=== PATIENT | female | born 1955 | race Caucasian/White ===

== ENCOUNTER 2024-03-22 09:15 | Outpatient (CLI) | payer OTHER, MEDICARE, SELFPAY ==
--- NOTE | ~2024-03-22 | XR_ITS ---
EXAMINATION: XR scoliosis survey DATE: 03/22/2024 10:07 INDICATION: Scoliosis without myelopathy or radiculopathy. TECHNIQUE: Anteroposterior and lateral views of the entire spine standing were obtained. COMPARISON: None. FINDINGS: Right femoral head stands 11 mm higher than the left. There are 12 pairs of ribs. There are 5 nonrib-bearing lumbar segments. There is 12 degrees dextroscoliosis from T5 to T8 by the Alatorre meth od. There is 10 degrees levoscoliosis from T8 to L2. There is severe cervical spondylosis, moderate t horacic spondylosis, and severe lumbar spondylosis. IMPRESSION: 1. Right femoral head stands 11 mm higher than the left. 2. Scoliosis. Reviewed, dictated and finalized at location A. R
--- NOTE | ~2024-03-22 | XR_ITS ---
HISTORY: M47.816 - Spondylosis without myelopathy or radiculopathy... COMPARISON: None. TECHNIQUE: 4 view lumbar spine. FINDINGS: Lumbar vertebral bodies are normally aligned. There are 5 non-rib bearing lumbar vertebral bodies. Vertebral body heights are well maintained. Disc spaces are markedly narrowed with endplate changes and osteophyte formation. This is most prominent at the levels of L4/L5 and L5/S1. Significant facet arthropathy is present. There are no lytic or sclerotic lesions. IMPRESSION: Significant degenerative disease within the lumbar spine for which further evaluation with MRI should be performed for better characterization. No acute fracture Reviewed, dictated and finalized at location A. DIRECTOR IMPRESSION: Significant degenerative disease within the lumbar spine for which further eval uation with MRI should be performed for better characterization. No acute fracture
--- OUTSIDE RECORDS SUMMARY | 2024-03-22 09:33 | XMS_ITS | Referral Summary ---
Author Organization [facility] Address [address] [place] [id number] Care Team Providers Care Teacher Vocal Name Role Phone Jp Schulz MD Primary Care Provider Manueltio Mendenhall TIPPING MACHINE OPERATOR Unavailable [phone] Soraya Lockwood TIPPING MACHINE OPERATOR Unavailable [phone] Encounters Date Type Department Care Team Description 03/14/2024 Telephone [facility] Gastroenterology at [address] [place] [address] Nereida Sandhu MA 02/21/2024 5:10 PM FINANCIAL WELLNESS COACH - 02/21/2024 11:59 PM [facility] Hospital Encounter [facility] [address] [place] [address] Lumbar radicular pain Discharge Disposition: Discharge to home or self care from Last 3 Months Allergies Active Allergy Reactions Criticality Noted Date Comments Acetaminophen-Codeine Other (See comments) Low 08/15 Codeine Nausea only Low Reaction: Nausea, Ketorolac Nausea only Low 01/21/2023 Tramadol Nausea only Low 01/21/2023 Medications melatonin 5 mg tablet 1 tablet (5 mg total) Active cholecalciferol, vitamin D3, (VITAMIN D3 ORAL) Take 1,000 Units by mouth Active biotin 10,000 mcg capsule Take by mouth Active wafbzvbmkold-Be-mft n-minerals tablet Take by mouth Active senna-docusate (PERICOLACE) 8.6-50 mg Take 1-2 pills nightly or at least 3 times weekly to help with larger and more complete morning bowel movements. 60 tablet 5 3 Active ascorbic acid, vitamin C, 125 mg tablet,chewable Take by mouth Active levothyroxine (SYNTHROID) 88 mcg tabletIndications:A cquired hypothyroidism Take 1 tablet (88 mcg total) by mouth daily 90 tablet 3 4 Active lovastatin (MEVACOR) 20 mg tabletIndications:M ultiple-type hyperlipidemia Take 1 tablet (20 mg total) by mouth nightly 90 tablet 3 4 Active Active Problems Problem Noted Date Diagnosed Date NSAID long-term use 10/04/2023 Assessment & Plan (10/04/2023 11:16 AM CDT): New diagnosis Patient has been noted to have custodial current use of NSAIDs. She has been using Advil-PM --> for sleep, discussed to switch to benadryl only due to risk of custodial use of NSAIDS Discussed that NSAIDs have been associated with: - increase in risk of GI bleeding and peptic ulcer - cause fluid retention and worsen congestive heart failure - worsen kidney function I recommend the following: - Using the lowest dose for the shortest possible duration - if possible switch NSAID with a different form of medication - Review patient s renal function and adjust dose accordingly - Adding a proton pump inhibitor (PPI) for GI protection for NSAID therapy >7 days - avoid using prednisone at same time as NSAIDs Elevated blood pressure reading 10/04/2023 Assessment & Plan (10/04/2023 11:20 AM CDT): - new diagnosis, not at goal - has had elevated BP reading in office and with pain management provider - asked her to send me blood pressure logs from home for 5 days so I can decide whether to start on medication or not - follow a low-salt diet - states does not want to take blood pressure lowering medications - see plan under obesity about weight management options and monitoring calorie intake Medicare annual wellness visit, subsequent 10/02 Class 1 obesity due to exces s calories with serious comorbidity and body mass index (BMI) of 32.0 to 32.9 in adult 10/03/2023 Assessment & Plan (10/04/2023 11:17 AM CDT): Wt Readings from Last 3 Encounters: 10/03/23 85.6 kg (188 lb 12.8 oz) 05/31/23 81.6 kg (180 lb) 01/21/23 83.3 kg (183 lb 11.2 oz) Body mass index is 32.39 kg/m . - chronic condition, not at goal - worse - BMI Follow-up includes: nutrition counseling, exercise counseling and education provided - Recommend to exercise at least 30 minutes moderate to vigorous exercise most days of the week. (minimum 150 minutes weekly) - Co-morbidities - hyperlipidemia, pre-diabetes - she wants to be about 150 lbs - calculated estimated daily calorie intake that is needed for someone based on her age, activity level, sex which will be around 1400 calories per day Personal history of colonic polyps 01/21/2023 Assessment & Plan (10/03/2023 12:40 PM CDT): - she has colonoscopy scheduled for 03/23/2024, patient has known history of colon polyps Irritable bowel syndrome with constipation and d iarrhea 01/21/2023 History of hematuria 12/20/2022 Assessment & Plan (10/04/2023 11:17 AM CDT): - she was referred to Urology for hematuria by prior pleased to be and was referred to [facility] - had complete workup including imaging and cystoscopy with normal finding and was told she likely passed a kidney stones Assessment & Plan (12/20/2022 5:13 PM FINANCIAL WELLNESS COACH): CT scans without renal mass. Urological referral for cystoscopy and completion of work up. Diverticulitis 12/20/2022 Assessment & Plan (12/20/2022 5:13 PM FINANCIAL WELLNESS COACH): Complete course of antibiotics. Colonoscopy ordered. High-fiber diet and Metamucil to avoid constipation. History of diverticulitis of colon 12/16/2022 Overview (10/04/2023): - Diverticulitis - many years ago in ED, states in Lumbar radiculopathy 09/29/2022 Overview (10/27/2023): Follows with pain management as interventional pain consultants for lumbar radicular pain, osteoarthritis of right hip and other chronic pain She has had L4-L5 ES I was 90% benefit Status post right eye a hip injections for osteoarthritis of right hip with 40% benefit Assessment & Plan (10/03/2023 12:38 PM CDT): - chronic condition, stable status - managed by Interventional pain management - known conditions of right sided Lumbar radiculopathy and DDD of lumbar spine - states almost 30 years ago was told had bulging disc L4-L5 - Family members have had difficulty with opioid use and would prefer to avoid medication if able to in general - managed with injections x2 in her back and x1 in her hip thus far --> but only lasting few weeks at a time - she takes advil PM at night - states with her demanding work cannot do Physical therapy - continue current management per pain management Assessment & Plan (12/20/2022 5:13 PM FINANCIAL WELLNESS COACH): Pain management referral. Family members have had difficulty with opioid use and would prefer to avoid medication if able. Assessment & Plan (09/29/2022 10:03 AM CDT): PRN meds for now. Call for lumbar spine xrays, Right hip xrays and PT eval when ready. Healthcare maintenance 07/12/2017 Assessment & Plan (09/29/2022 10:15 AM CDT): Flu shot each November. Tetanus booster every 10 years. Shingrix completed. Prevnar 20 today. New COVID booster when available. Mammogram yearly. Colonoscopy due September 2023. Will see her back in 1 year for physical fasting lab sooner if. Assessment & Plan (09/24/2021 10:09 AM CDT): Shot each November. Tetanus booster every 10 years. Shingrix completed. COVID vaccine booster this fall. Mammogram yearly. Colonoscopy due September 2023. Will see her back in 1 year for physical fasting lab sooner if needed. Assessment & Plan (11/12/2020 5:09 PM CDT): Flu shot each November. Tetanus booster every 10 years. Shingrix recommended. COVID vaccine completed. Mammogram yearly. Colonoscopy due September 2023. Will see her back in 1 year with lab sooner if needed. Assessment & Plan (07/25/2019 10:40 AM CDT): Flu shot each November. Tetanus booster every 10 years. Shingrix recommended. Colonoscopy due September 2028. Mammogram due September 2019. Follow-up the ab initio etl developer for breast exam and pelvic exam as they direct. We will see her back in 1 year for physical and fasting lab sooner if needed. Assessment & Plan (07/13/2018 12:47 PM CDT): Flu shot each November. Tetanus booster updated today. Shingrix recommended. Colonoscopy due and ordered. Mammogram yearly. Will see her back in 1 year for physical and fasting lab sooner if needed. Assessment & Plan (08/07/2017 8:29 PM CDT): Flu shot each November. Tetanus booster every 10 years. Shingrix recommended. Colonoscopy due May 2018. Bone density scan due August 2018. Mammogram yearly. She should see her ab initio etl developer for breast exam and pelvic exam is a direct. We will see her back in 1 year for full physical and fasting lab sooner if needed. Allergic rhinitis 07/12/2017 Insomnia 07/12/2017 Assessment & Plan (10/04/2023 11:17 AM CDT): - Chronic condition, controlled - Uses Melatonin PRN only and 2 Advil PM at night - discussed risk of custodial NSAID use --> asked her to discontinue Advil p.m. start using Benadryl in place of it Assessment & Plan (07/25/2019 10:38 AM CDT): Melatonin and Benadryl as needed. Assessment & Plan (07/13/2018 12:47 PM CDT): Continue melatonin as needed Degeneration of intervertebral disc of lumbar re gion 06/30/2013 History of asthma 06/30/2013 Assessment & Plan (10/03/2023 12:46 PM CDT): - history of it in past when she used to be very active - has not been an issue in the past Acquired hypothyroidism 06/30/2013 Assessment & Plan (10/03/2023 12:43 PM CDT): - chronic condition - status: well controlled - any hx of surgery, radiation: none - current medication: Levothyroxine 88 mcg daily - most recent labs as shown below - continue current management with changes as indicated above if applicable Lab Results Component Value Date TSH 1.43 09/26/2023 TSH 2.48 09/22/2022 TSH 0.34 09/10/2021 FREET4 1.3 09/26/2023 FREET4 1.2 09/22/2022 FREET4 1.58 09/10/2021 Assessment & Plan (09/29/2022 10:14 AM CDT): Patient is asymptomatic on current dose of levothyroxine and TSH free T4 are normal and we will repeat levels before next visit. Assessment & Plan (09/24/2021 10:08 AM CDT): Patient is asymptomatic on current dose of levothyroxine and TSH free T4 are normal and we will repeat levels before next visit. Assessment & Plan (11/12/2020 5:08 PM CDT): Stop biotin. Continue current dose of levothyroxine. recheck labs in 8 weeks. Call back for results. Assessment & Plan (07/25/2019 10:39 AM CDT): Increase levothyroxine to 88 mcg daily. Check TSH and free T4 in 8 weeks and call back for results. Assessment & Plan (07/13/2018 12:47 PM CDT): Patient is asymptomatic on current dose of levothyroxine and TSH free T4 are normal and we will repeat levels before next visit. Assessment & Plan (08/07/2017 8:28 PM CDT): Patient is asymptomatic on current dose of levothyroxine and TSH free T4 are normal and we will repeat levels before next visit. Vitamin D deficiency 06/30/2013 Assessment & Plan (10/03/2023 12:49 PM CDT): - chronic condition, stable status - on vitamin D supplementation 1000 international units D3 daily - most recent lab as shown below - continue current management Lab Results Component Value Date 25HYDROVITD 39 09/10/2021 25HYDROVITD 24 (L) 12/25/2020 25HYDROVITD 96 (H) 09/12/2020 25HYDROVITD 43 07/18/2019 25HYDROVITD 37 06/28/2018 Assessment & Plan (09/29/2022 10:14 AM CDT): Continue current supplementation and check level in 1 year. Assessment & Plan (09/24/2021 10:08 AM CDT): Continue current supplementation and check level in 1 year. Assessment & Plan (11/12/2020 5:09 PM CDT): Hold vitamin-D supplementation, repeat labs in 8 weeks. Restart 1000 units daily once normal. Assessment & Plan (07/25/2019 10:37 AM CDT): Continue current supplementation and check level in 1 year. Assessment & Plan (07/13/2018 12:46 PM CDT): Continue current supplementation and check level in 1 year. Assessment & Plan (08/07/2017 8:28 PM CDT): Continue current supplementation and check level in 1 year. Impaired fasting glucose 06/30/2013 Assessment & Plan (10/03/2023 12:42 PM CDT): - chronic condition, worse - not on any medications - will continue to monitor - Patient should reduce sugar and carbs, increase exercise, maintain proper body weight, and will check an A1c once or twice yearly. Lab Results Component Value Date HGBA1C 6.0 (H) 09/26/2023 HGBA1C 5.6 09/22/2022 HGBA1C 5.6 09/10/2021 Lab Results Component Value Date LDLCALC 91 09/10/2021 CREATININE 1.06 (H) 09/26/2023 Assessment & Plan (09/29/2022 10:14 AM CDT): Patient should reduce sugar and carbs, increase exercise, maintain proper body weight, and will check an A1c once or twice yearly. Assessment & Plan (09/24/2021 10:08 AM CDT): Patient should reduce sugar and carbs, increase exercise, maintain proper body weight, and will check an A1c once or twice yearly. Assessment & Plan (11/12/2020 5:09 PM CDT): Patient should reduce sugar and carbs, increase exercise, maintain proper body weight, and will check an A1c once or twice yearly. Assessment & Plan (07/25/2019 10:38 AM CDT): Patient should reduce sugar and carbs, increase exercise, maintain proper body weight, and will check an A1c once or twice yearly. Assessment & Plan (07/13/2018 12:47 PM CDT): Patient should reduce sugar and carbs, increase exercise, maintain proper body weight, and will check an A1c once or twice yearly. Assessment & Plan (08/07/2017 8:28 PM CDT): Patient should reduce sugar and carbs, increase exercise, maintain proper body weight, and will check an A1c once or twice yearly. Multiple-type hyperlipidemia 06/30/2013 Overview (07/12/2017): LDL baseline 206 Assessment & Plan (10/03/2023 12:42 PM CDT): - chronic condition - status: is adequately controlled. - per prior PCP her baseline LDL was 2017 - current management/medications: Lovastatin 20 mg nightly - other comorbid conditions: Obesity - patient is compliant with medications. - most recent LDL as shown below - maintain a healthy weight, diet - will monitor closely - continue current management Lab Results Component Value Date CHOL 173 09/26/2023 CHOL 180 09/22/2022 CHOL 169 09/10/2021 Lab Results Component Value Date HDL 55 09/26/2023 HDL 56 09/22/2022 HDL 55 09/10/2021 Lab Results Component Value Date LDLCALC 91 09/10/2021 LDLCALC 98 09/12/2020 LDLCALC 108 07/18/2019 LDL 89 09/26/2023 LDL 98 09/22/2022 LDL 107 06/16/2015 Lab Results Component Value Date TRIG 195 (H) 09/26/2023 TRIG 159 (H) 09/22/2022 TRIG 114 09/10/2021 Lab Results Component Value Date ALT 20 09/26/2023 AST 17 09/26/2023 ALKPHOS 72 09/26/2023 BILITOT 0.4 09/26/2023 Assessment & Plan (09/29/2022 10:15 AM CDT): Well controlled on current therapy and will check a lipid panel and LFTs in 6 months. Assessment & Plan (09/24/2021 10:09 AM CDT): Well controlled on current therapy and will check a lipid panel and LFTs in 12 months. Assessment & Plan (11/12/2020 5:09 PM CDT): Well controlled on current therapy and will check a lipid panel and LFTs in 12 months. Assessment & Plan (07/25/2019 10:38 AM CDT): Well controlled on current therapy and will check a lipid panel and LFTs in 12 months. Assessment & Plan (07/13/2018 12:47 PM CDT): Well controlled on current therapy and will check a lipid panel and LFTs in 12 months. Assessment & Plan (08/07/2017 8:28 PM CDT): Well controlled on current therapy and will check a lipid panel and LFTs in 12 months. Low bone mass 06/26/2013 Assessment & Plan (10/04/2023 11:14 AM CDT): - Calcium vitamin-D, weight-bearing exercise - Most recent DEXA as shown below - DEXA 10/2022 FINDINGS: AP LUMBAR SPINE L1-L4: T-score is -0.8 LEFT HIP:T-score is -0.9 Femoral neck: T-score is -1.6 Assessment & Plan (09/29/2022 10:15 AM CDT): Calcium vitamin-D, weight-bearing exercise and repeat bone density scan at her convenience and call back for results Assessment & Plan (09/24/2021 10:09 AM CDT): Calcium, vitamin-D, weight-bearing exercise and repeat bone density scan once on Medicare. Assessment & Plan (07/25/2019 10:37 AM CDT): Continue calcium, vitamin-D, weight-bearing exercise and patient again elects to defer bone density scanning till next year due to current COVID-19 related issues. Assessment & Plan (07/13/2018 12:47 PM CDT): Calcium, vitamin-D, weight-bearing exercise. Patient declines repeat bone density scan until next year. She is aware the risks this poses to her health. Assessment & Plan (08/07/2017 8:28 PM CDT): Continue calcium, vitamin-D, weight-bearing exercise and repeat bone density scan in August 2018 per her request. Resolved Problems Problem Noted Date Diagnosed Date Resolved Date Irritable bowel syndrome wit h both constipation and diarrhea 01/21/2023 10/03/2023 History of colonoscopy with polypectomy 01/21/2023 10/03/2023 H/O colonoscopy with polypectomy 01/21/2023 10/03/2023 Encounter for vaccination 09/29/2022 Assessment & Plan (09/29/2022 10:16 AM CDT): Prevnar 20 today. 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 Wound care reviewed with patient. Follow-up per path. Skin tags, multiple acquired 08/14/2018 10/03/2023 Assessment & Plan (08/14/2018 9:33 AM CDT): Chest, bilateral under arms Diagnosis discussed. Patient is aware that this is a cosmetic procedure and also of the risks, benefits, and recovery. She would like to proceed. Please see separate cosmetic procedure note. Return p.r.n. Encounter for screening colonoscopy 08/04/2018 10/03/2023 Overview (08/04/2018): Added automatically from request for surgery [id number] Mass of left side of neck 12/12/2017 Assessment & Plan (12/12/2017 3:24 PM CDT): Possible mild inflammation of soft tissue, cartilage surrounding her clavicular angle due to the recent shingles infection considering it near the C4 dermatome I did encourage patient will go ahead move forward in grab an x-ray of soft tissue for further evaluation to rule out any acute concerns regarding lymphadenopathy her other etiologies which could be causing her symptoms. We will touch base with her tomorrow after imaging Post herpetic neuralgia 12/12/201709/14 Assessment & Plan (12/12/2017 3:26 PM CDT): Discussion office today of which typically expected regard to post herpetic neuralgia it has only been 2 weeks and she was diagnosed and treated with condition I advised her to give another 2-3 weeks before we move for with treatment options for post herpetic neuralgia including use of gabapentin, tricyclics, and certainly any other pain medication which we often defer to Pain Management for further treatment At this time I did encourage the use of capsaicin cream this might help to rebekah some of the shingles secondary neuropathic pain that she is experiencing. We will touch base in a couple weeks if needed regarding Lastly, I did encourage her to follow up in office for Shingrix vaccination next wellness visit Immunizations Name Administration Dates Next Due Hep A, Adult 04/26/2022 Influenza, Quad, Adjuvantate d, Intramuscular 02/18/2022 Influenza, Quadrivalent, Spl it, Preservative Free, Intramuscular 02/09/2020,01/22/2019 Influenza, Unspecified 10/03/2023(Deferr ed: Patient Refused),11/14/2020(Deferred: Patient Refused),11/18/2017 Pfizer SARS-CoV-2 Monovalent Vaccination (12+ Yrs) PURPLE 01/14/2021,05/24/2020,05/02/2020 Pneumococcal Conjugate Pcv20 09/29/2022 Td, adsorbed 07/13/2018 Tdap 04/12/2008 ZOSTER Recombinant 04/26/2022,02/19/2022 Social History Tobacco Use Types Packs/Day Years Used Date Smoking Tobacco: Never Smokeless Tobacco: Never Tobacco Cessation:Counseling Given: Not Answered Alcohol Use Standard Drinks/Week Comments No 0 (1 standard drink = 0.6 oz pur e alcohol) AUDIT-C Answer Date Recorded Q1: How often do you have a drink containing alc ohol? Monthly or less 01/21/2023 Average Number of Drinks Not on file 023 Frequency of Binge Drinking Not on file 09/2022 PHQ-2 Answer Date Recorded PHQ-2 Total Score (If total score is 3 or more points, staff should administer the PHQ-9) 0 10/03/2023 Personal Safety Answer Date Recorded Have you ever been in or are you currently in a harmful physical or emotional relationship or is someone making you feel afraid or unsafe? Denies 12/16/2022 Comments No Sex and Gender Information Value Date Recorded Sex Assigned at Not on file Legal Sex Female 9:22 AM FINANCIAL WELLNESS COACH Gender Identity Not on file Sexual Orientation Not on file Last Filed Vital Signs Vital Sign Reading Time Taken Comments Blood Pressure 140/92 10/03/2023 11:58 AM CDT Pulse 82 10/03/2023 11:58 AM CDT Temperature 36.2 C (97.1 F) 10/03/2023 11:58 AM CDT Respiratory Rate 16 10/03/2023 11:5 8 AM CDT Oxygen Saturation 97% 10/03/2023 11: 58 AM CDT Inhaled Oxygen Concentration - - Weight 85.6 kg (188 lb 12.8 oz) 024 11:58 AM CDT Height 162.6 cm (5' 4.02 ) 10/03/2023 1 1:58 AM CDT Body Mass Index 32.39 10/03/2023 11:58 AM CDT Plan of Treatment Upcoming Encounters Date Type Department Care Team (Late st Contact Info) Description 03/23/2024 9:30 AM FINANCIAL WELLNESS COACH Hospital Encounter [address] [address] Smitha Kendall MD [address] [facility] [facility] [address] [address] [place] [address] 03/23/2024 9:30 AM FINANCIAL WELLNESS COACH - 03/23/2024 10:00 AM FINANCIAL WELLNESS COACH Surgery [address] [address] Smitha Kendall MD [address] [facility] [address] [address] [place] [address] COLONOSCOPY Scheduled Procedures Name Priority Associated Diagnoses Date/Ti me COLONOSCOPY H/O colonoscopy with polypectomy Personal history of colonic polyps Irritable bowel syndrome with constipation and diarrhea 03/23/2024 9:30 AM FINANCIAL WELLNESS COACH Procedures Procedure Name Priority Date/Time Associated Diagnosis Comments MRI LUMBAR SPINE WO CONTRAST Schedule Routine, Read Routine (OP Routine) 02/21/2024 5:42 PM FINANCIAL WELLNESS COACH Lumbar radicular pain SCREENING MAMMOGRAM BILATERAL W JOSE Schedule Routine, Read Routine (OP Routine) 06/16/2023 4:53 PM CDT Screening mammogram for breast cancer DEXA AXIAL SKELETON BONE DENSITY 1 OR MORE SITES Schedule Routine, Read Routine (OP Routine) 10/21/2022 8:11 AM CDT Osteopenia, unspecified location COLONOSCOPY 10/02/2018 8:43 AM CDT HEPATITIS C ANTIBODY Routine 06/22/2016 from Last 3 Months or Most Recently Relevant to Health Maintenance Results * MRI Lumbar Spine WO Contrast (02/21/2024 5:42 PM FINANCIAL WELLNESS COACH) Anatomical Region Laterality Modality Spine N/A Magnetic Resonan ce 02/22/2024 7:11 AM FINANCIAL WELLNESS COACH Narrative 02/22/2024 7:18 AM FINANCIAL WELLNESS COACH EXAM DESCRIPTION: MRI LUMBAR SPINE WO CONTRAST REASON FOR STUDY: LUMBAR RADICULAR PAIN Chronic back pain, previously only right-sided radiation, but now having pain into left side as well, pain in bilat groin and anterior thighs, no hx prior surgery TECHNIQUE: Sagittal and Axial imaging includes T1, T2, STIR sequences. COMPARISON: Lumbar spine radiographs dated 12/09/2022 and relevant portions of the CT chest abdomen and pelvis 12/16/2022. FINDINGS: SEGMENTATION: 5 [id number] lumbar type vertebral bodies. ALIGNMENT: Mild anterolisthesis of L3 on L4. VERTEBRAE: There is no acute compression fracture in the lumbar spine. Endplate degenerative changes and marginal spur formation ranging up to severe at L4-L5 and L5-S1. Mid to lower lumbar predominant facet arthropathy. DISC HEIGHT: Diffuse disc desiccation and height loss ranging up to moderate to severe. HARDWARE: None in the spine. CORD/CAUDA: Conus medullaris terminates at L2. LOWER THORACIC: Incompletely imaged. The T11-T12 disc protrusion indents the ventral thecal sac. Thickened ligamentum flavum and facet arthropathy contributes to bilateral neural foraminal narrowing. INDIVIDUAL DISC LEVELS: L1-L2: Disc bulge with marginal spur formation. Superimposed right subarticular disc protrusion with annular fissure. Thickened ligamentum flavum and facet arthropathy. No significant spinal canal stenosis. Right lateral recess effacement. No significant neural foraminal narrowing. L2-L3: Disc bulge and superimposed right subarticular disc protrusion with an annular fissure. Thickened ligamentum flavum and facet arthropathy. No significant spinal canal stenosis. Right lateral recess effacement. Mild right and no significant left neural foraminal narrowing. L3-L4: Disc bulge with thickened ligamentum flavum and bilateral facet arthropathy. Proliferation of dorsal epidural fat. Mild spinal canal stenosis. Czky-rxdjqlv-[id number]-right lateral recess effacement. Pkbf-[id number]-[id number] neural foraminal narrowing, lryk-xmblcfy-[id number]-right. L4-L5: Disc bulge with marginal spur formation. Superimposed central disc protrusion. Thickened ligamentum flavum and facet arthropathy. Proliferation of dorsal epidural fat. Moderate spinal canal stenosis. Lateral recess effacement on both sides with disc/marginal spur and facet arthropathy obscuring the descending L5 nerve roots. Utxq-ym-dphajpfd neural foraminal narrowing. L5-S1: Disc bulge with marginal spur formation. Superimposed central disc protrusion. Bilateral facet arthropathy. No significant spinal canal stenosis. Mild inferior neural foraminal narrowing. IMPRESSION: 1. Lumbar disc degeneration ranging up to moderate to severe with thickened ligamentum flavum and facet arthropathy as described. The spinal canal narrowing is most noticeable at L4-L5 and to a lesser extent at L3-L4. 2. Varying degrees of bilateral neural foraminal narrowing is most noticeable at L3-L4 and L4-L5. 3. Lateral recess effacement and additional findings as above. THIS IS AN ELECTRONICALLY VERIFIED FINAL REPORT 02/22/2024 7:18 AM - Electronically signed by Gabo Moore D.O. AP: AP Report ID: [id number] Reading Location: [id number] Procedure Note Gabo Moore, DO - 02/22/2024 EXAM DESCRIPTION: MRI LUMBAR SPINE WO CONTRAST REASON FOR STUDY: LUMBAR RADICULAR PAIN Chronic back pain, previously only right-sided radiation, but now havingpain into left side as well, pain in bilat groin and anterior thighs, no hxprior surgery TECHNIQUE: Sagittal and Axial imaging includes T1, T2, STIR sequences. COMPARISON: Lumbar spine radiographs dated 12/09/[address] chest abdomen and pelvis 12/16/2022. FINDINGS: SEGMENTATION: 5 hjo-lbp-zvfdziz lumbar type vertebral bodies. ALIGNMENT: Mild anterolisthesis of L3 on L4. VERTEBRAE: There is no acute compression fracture in the lumbar spine. Endplate degenerative changes and marginal spur formation ranging up tosevere at L4-L5 and L5-S1. Mid to lower lumbar predominant facet arthropathy. DISC HEIGHT: Diffuse disc desiccation and height loss ranging up tomoderate to severe. HARDWARE: None in the spine. CORD/CAUDA: Conus medullaris terminates at L2. LOWER THORACIC: Incompletely imaged. The T11-T12 disc protrusionindents the ventral thecal sac. Thickened ligamentum flavum and facet arthropathy contributes to bilateral neural foraminal narrowing. INDIVIDUAL DISC LEVELS: L1-L2: Disc bulge with marginal spur formation. Superimposed right subarticular disc protrusion with annular fissure. Thickened ligamentum flavum and facet arthropathy. No significant spinal canal stenosis.Right lateral recess effacement. No significant neural foraminal narrowing. L2-L3: Disc bulge and superimposed right subarticular disc protrusion withan annular fissure. Thickened ligamentum flavum and facet arthropathy. No significant spinal canal stenosis. Right lateral recess effacement. Mild right and no significant left neural foraminal narrowing. L3-L4: Disc bulge with thickened ligamentum flavum and bilateral facet arthropathy. Proliferation of dorsal epidural fat. Mild spinal canal stenosis. Dxuv-eudzvvq-tnyb-right lateral recess effacement. Fsun-sw-subzmjhk neural foraminal narrowing, qkdl-lvjaujl-hktd-right. L4-L5: Disc bulge with marginal spur formation. Superimposed central disc protrusion. Thickened ligamentum flavum and facet arthropathy.Proliferation of dorsal epidural fat. Moderate spinal canal stenosis. Lateral recess effacement on both sides with disc/marginal spur and facet arthropathy obscuring the descending L5 nerve roots. Qjpr-mj-hiictcrz neuralforaminal narrowing. L5-S1: Disc bulge with marginal spur formation. Superimposed central disc protrusion. Bilateral facet arthropathy. No significant spinal canal stenosis. Mild inferior neural foraminal narrowing. IMPRESSION: 1. Lumbar disc degeneration ranging up to moderate to severe withthickened ligamentum flavum and facet arthropathy as described. The spinal canal narrowing is most noticeable at L4-L5 and to a lesser extent at L3-L4. 2. Varying degrees of bilateral neural foraminal narrowing is most noticeable at L3-L4 and L4-L5. 3. Lateral recess effacement and additional findings as above. THIS IS AN ELECTRONICALLY VERIFIED FINAL REPORT 02/22/2024 7:18 AM - Electronically signed by Gabo Moore D.O. AP: SAM Report ID: [id number] Reading Location: [id number] Soraya Lockwood NP IMG MRI PROCEDURES Final Re sult * Screening Mammogram Bilateral W Jose (06/16/2023 4:53 PM CDT) Anatomical Region Laterality Modality Breast Bilateral Mammography 06/17/2023 8:11 AM CDT Impressions 06/17/2023 8:11 AM CDT There is no mammographic evidence of malignancy. A 1 year screening mammogram is recommended. BI-RADS: 1 - Negative. The patient has been or will be contacted. The patient will be entered into a reminder system with a target due date of 1 year for her next mammogram. Electronically signed by: Cecelia Song M.D. Narrative 06/17/2023 8:11 AM CDT EXAMINATION: SCREENING MAMMOGRAM BILATERAL W JOSE ORDERING HEALTHCARE PROVIDER: ANDREINA SANDHU HISTORY: Routine screening mammography. COMPARISON: 04/29/2022, 04/01/2021, 11/28/2019, 09/18/2018, 08/26/2017 TECHNIQUE: CC and MLO views of the bilateral breasts were obtained with digital technique using breast tomosynthesis with C view. Computer aided detection was utilized. FINDINGS: DENSITY: The tissue of the bilateral breasts is almost entirely fatty. BREASTS: There are no suspicious masses, suspicious calcifications, or other suspicious findings in either breast. There has been no suspicious interval change. 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 REFERENCE: Bone mineral density: Normal (T-score above or = -1.0) Low bone mass (T-score between -1.0 and -2.5) replaces the previously used term osteopenia Osteoporosis (T-score = or below -2.5) Medical evaluation for secondary causes of low bone mineral density may be appropriate. FRAX is a World Health Organization validated fracture risk assessment tool that calculates a person's 10 year probability of a major osteoporosis related fracture and hip fracture. According to the National Osteoporosis Foundation guidelines, postmenopausal women and men age 50 or older with low bone mass and a 10 year probability of a major osteoporosis related fracture = or greater than 20% or a 10 year probability of a hip fracture = or greater than 3% should be considered for treatment. For further information, including treatment recommendations, please refer to the 2019 ISCD Official Positions (http://www.iscd.org) and the NOF's Clinician's Guide to Prevention and Treatment of Osteoporosis (http://www.nof.org/professionals/clinical-guidelines) THIS IS AN ELECTRONICALLY VERIFIED FINAL REPORT 10/21/2022 6:09 PM - Electronically signed by Bertrand Arndt M.D. 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 REFERENCE: Bone mineral density: Normal (T-score above or = -1.0) Low bone mass (T-score between -1.0 and -2.5) replaces thepreviously used term osteopenia Osteoporosis (T-score = or below -2.5) Medical evaluation for secondary causes of low bone mineral density may be appropriate. FRAX is a World Health Organization validated fracture risk assessmenttool that calculates a person's 10 year probability of a major osteoporosisrelated fracture and hip fracture. According to the National OsteoporosisFoundation guidelines, postmenopausal women and men age 50 or older with low bonemass and a 10 year probability of a major osteoporosis related fracture = or greater than 20% or a 10 year probability of a hip fracture = or greaterthan 3% should be considered for treatment. For further information, including treatment recommendations, please referto the 2019 ISCD Official Positions (http://www.iscd.org) and the NOF's Clinician's Guide to Prevention and Treatment of Osteoporosis (http://www.nof.org/professionals/clinical-guidelines) THIS IS AN ELECTRONICALLY VERIFIED FINAL REPORT 10/21/2022 6:09 PM - Electronically signed by Bertrand Arndt M.D. MF: [email or web address] Report ID: [id number] Reading Location: [id number] us Andreina Sandhu MD IMG DXA PROCEDURES Final Res ult * COLONOSCOPY (10/02/2018 8:43 AM CDT) Anatomical Region Laterality Modality Other Narrative Procedure Note Smitha Kendall MD - 10/02/2018 8:43 AM CDT [facility] Patient Name: Airam Cantor Procedure Date: 10/02/2018 8:43 AM Date of : 1955 Admit Type: Outpatient Age: 63 Gender: Female Attending MD: Smitha Kendall M.D. Room: [facility] ENDOSCOPY ROOM 1 Note Status: Finalized Patient Profile: This is a 63 year old female. No family history of colon cancer. Procedure: Colonoscopy Indications: Screening for colorectal malignant neoplasm, Last colonoscopy: June 2007 Referring MD: Andreina Sandhu M.D. Providers: Smitha Kendall M.D. Impression: - Diverticulosis in the entire examined colon. - One 3 mm polyp in the distal sigmoid colon,removed with a cold biopsy forceps. Resected andretrieved. - Internal hemorrhoids. Recommendation: - Await pathology results. - Repeat colonoscopy in 5-10 years for screening purposes. - Continue present medications. Medicines: Monitored Anesthesia Care Complications: No immediate complications. Estimated Blood Loss: Estimated blood loss: none. Procedure: Pre-Anesthesia Assessment: - Prior to the procedure, a History and Physical was performed, and patient medications and allergieswere reviewed. The patient's tolerance of previous anesthesia was also reviewed. The risks and benefitsof the procedure and the sedation options and riskswere discussed with the patient. All questions were answered, and informed consent was obtained. Prior Anticoagulants: The patient has taken no previous anticoagulant or antiplatelet agents. ASA Grade Assessment: II - A patient with mild systemicdisease. After reviewing the risks and benefits, the patientwas deemed in satisfactory condition to undergo the procedure. The benefits, risks and alternatives of theprocedure and sedation were discussed and informed consent was obtained. All questions were answered. Please referto the signed informed consent document in the medical record. Bowel prep was administered using a splitdose. The scope was passed under direct vision. ThePediatric Colonoscope PCF-H190L [id number] was introducedthrough the anus and advanced to the the cecum, identifiedby appendiceal orifice and ileocecal valve. The qualityof the bowel preparation was good. The bowelpreparation used was Miralax. Findings: The perianal and digital rectal examinations were normal. The cecum appeared normal. Multiple small-mouthed diverticula were found in the entire colon,more prominent in the sigmoid colon. A 3 mm polyp was found in the distal sigmoid colon. The polyp was sessile. The polyp was removed with a cold biopsy forceps. Resectionand retrieval were complete. Internal hemorrhoids were found during retroflexion. The hemorrhoids were small. Electronically signed by Smitha Kendall M.D. Smitha Kendall M.D. 10/02/2018 10:02:05 AM Number of Addenda: 0 Note Initiated On: 10/02/2018 8:43 AM Procedure Code(s): --- Professional --- 39171, Colonoscopy, flexible; with biopsy, single or multiple Diagnosis Code(s): --- Professional --- Z12.11, Encounter for screening for malignant neoplasm of colon D12.5, Benign neoplasm of sigmoid colon K64.8, Other hemorrhoids K57.30, Diverticulosis of large intestine without perforation orabscess without bleeding CPT copyright 2017 [employer]. All rights reserved. The codes documented in this report are preliminary and upon window treatment installer reviewmay be revised to meet current compliance requirements. Recognized by the [employer] [employer] for promoting quality in endoscopy Smitha Kendall MD ENDOSCOPY PROCEDURES Final Result * Hepatitis C antibody (06/22/2016) SCRIBED HCV ab Negative [facility] Blood specimen (specimen) Narrative [facility] - 06/22/2016 Results already scanned into media. Historical Provider LAB MICROBIOLOGY - WENCESLAO L ORDERABLES Final Result [facility] from Last 3 Months or Most Recently Relevant to Health Maintenance Insurance COMMERCIAL GENERIC MEDICARE MEDICARE [employer] PPO [employer] PPO [employer] PPO Advance Directives For more information, please contact: [phone] * Full Code (Latest Code Status on File) Date Activated Date Inactivated Comments 10/02/2018 9:11 AM 10/02/2018 2:44 PM * Full Code Date Activated Date Inactivated Comments 10/02/2018 9:11 AM 10/02/2018 9:11 AM Care Teams Teacher Vocal Relationship Specialty Start Date End Date Jp Schulz MD [address] [facility] [facility] [place] [address] PCP - General Family Medicine 10/03/23 Manuelito Mendenhall NP [address] [place] [address] Nurse Practitioner Gastroenterology 10/03/23 Soraya Lockwood NP [address] [place] [address] Nurse Practitioner Pain Management 10/27/23
--- OUTSIDE RECORDS SUMMARY | 2024-03-22 09:33 | XMS_ITS | Encounter Summary ---
Author Organization [facility] Address [address] [place] [address] Phone Care Team Providers Care Regional Flatbed Truck Driver Name Role Phone Be Sandhu MD Primary Care Provider [phone] Jp Schulz MD Primary Care Provider Be Sandhu MD Primary Care Provider [phone] Jp Schulz MD Primary Care Provider Manuelito Mendenhall HYPOID GEAR TESTER Unavailable [phone] Soraya Lockwood HYPOID GEAR TESTER Unavailable [phone] Encounter Details Date Type Department Care Team (Late st Contact Info) Description 07/04/2017 Orders Only [facility] Provider, MD Celestino [address] [place] [address] Social History Tobacco Use Types Packs/Day Years Used Date Smoking Tobacco: Never Alcohol Use Standard Drinks/Week Comments No 0 (1 standard drink = 0.6 oz pur e alcohol) Comments Unknown Sex and Gender Information Value Date Recorded Sex Assigned at Not on file Legal Sex Female 9:22 AM GIS PROGRAMMER Gender Identity Not on file Sexual Orientation Not on file documented as of this encounter Plan of Treatment Upcoming Encounters Date Type Department Care Team (Late st Contact Info) Description 03/23/2024 9:30 AM GIS PROGRAMMER Hospital Encounter [address] [address] Smitha Kendall MD [address] [facility] [address] [place] [address] 03/23/2024 9:30 AM GIS PROGRAMMER - 03/23/2024 10:00 AM GIS PROGRAMMER Surgery [facility] [address] [place] [address] Smitha Kendall MD [address] [place] [address] [address] [place] [address] COLONOSCOPY Scheduled Procedures Name Priority Associated Diagnoses Date/Ti me COLONOSCOPY H/O colonoscopy with polypectomy Personal history of colonic polyps Irritable bowel syndrome with constipation and diarrhea 03/23/2024 9:30 AM GIS PROGRAMMER documented as of this encounter Procedures Procedure Name Priority Date/Time Associated Diagnosis Comments DISCHARGE LABORATORY CUMULATIVE REPORT 07/04/2017 12:00 AM CDT documented in this encounter Results * DISCHARGE LABORATORY CUMULATIVE REPORT (07/04/2017 12:00 AM CDT) Narrative 07/04/2017 12:00 AM CDT Ordered by an unspecified provider. us Historical Provider LAB BLOOD ORDERABLES Augusta l Result documented in this encounter Visit Diagnoses Not on filedocumented in this encounter Additional Health Concerns Infection Onset Date Last Indicated Resolved Time COVID: Suspected 06/17/2021 06/17/2021 06/18/2021 3:05 AM CDT COVID: Suspected 06/17/2021 06/17/2021 06/18/2021 5:31 AM CDT documented as of this encounter Care Teams Regional Flatbed Truck Driver Relationship Specialty Start Date End Date Be Sandhu MD PCP - General 05/14/16 05/01/23 Jp Schulz MD [address] [facility] [address] DOMIN[address] Sanchez [address] [address] PCP - General Family Medicine 05/02/23 06/21/23 Be Sandhu MD [address] [address] PCP - General Internal Medicine 06/22/23 10/02/23 Jp Schulz MD [address] [facility] [address] DOMINI[address] Sanchez [facility] [address] [place] [address] PCP - General Family Medicine 10/03/23 Manuelito Mendenhall NP [address] [facility] [address] [place] [address] Nurse Practitioner Gastroenterology 10/03/23 Soraya Lockwood NP [address] [place] [address] Nurse Practitioner Pain Management 10/27/23 documented as of this encounter
--- OUTSIDE RECORDS SUMMARY | 2024-03-22 09:34 | XMS_ITS | Continuity of Care Document ---
Author Organization [facility] Address [address] [place] [address] Phone Care Team Providers Care Picking Machine Operator Helper Name Role Phone Zackary Godfrey MD Unavailable Unavailable Allergies, Adverse Reactions, Alerts Substance Reaction Status Criticality CODEINE PHOSPHATE Active No Informa tion acetaminophen Active No Information Medications Medication Instructions Dosage Effective Dates (start - stop) Status Comments lovastatin 20 mg tablet take 1 tablet by oral route every day with the evening meal 20 MG - Active Tirosint 75 mcg capsule take 1 capsule by oral route every day 75 MCG - Active Procedures Procedure Date Eye Exam, New Patient Advance Directives Directive Yes / No Effective Date File Name No Information Encounters Encounter Description Practice Location Reason(s) For Visit Diagnoses Date Provider Providers Copied on Encounter [facility], [address] [place] [address] [address], [place], [place], [id number], [place] tel:[phone] [facility] [place] RAFFI Professional No Information 3 Epifanio Raymundo. [address] [facility] [address], [place], [place], [id number], [place]. 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 [address] [facility], [place], [address], [place]. tel:[phone] Referring Provider: Luis Cruz OD R, [address] [facility] [address], [place], [address]. tel:[phone] Family History Family Member Type Diagnosis Age At Onset Problem Family history of Glaucoma Problem Family history of Diabetes m ellitus Problem (finding) Family history of Retin al disease Payers Payer name Insurance type Covered democrat ID Authoriza tijoseph(s) Jennifer CI [id number] Social History Type Description Quantity Date Captured Comments Alcohol Use Details No Caffeine Use Details Tobacco Use Status Current non-smoker Smoking Status Never smoker Non-Smoking Tobacco Use Details : No Details Available : No Details Available Sex Female Chief Complaint And Reason For Visit No Information Reason For Referral Reason For Referral No Information History Of Present Illness Encounter Date Complaint History Of Prese nt Illness Vertical lines in Vision The 63 year old female presents for evaluation of Vertical lines in Vision in the left eye. Pt denies any past ocular injuries, Sx, or Dx, OU. Pt reports OSKAR was 2017. Pt reports she noticed last that she was seeing vertical colorful lines in VA, temporal, very bright at times almost like a laser light was pointed at her, OS. Pt reports it was very frequent throughout that day, then it happened only 1-2 x/day for the next few days and she hasn't seen them in a couple days. Pt reports she had a dull WOO behind OS that lasted an hour or so. Pt reports OS doesn't fell right and she is afraid something is wrong. Pt denies any problems with OD. Functional Status Date Functional Assessmen t No Information Instructions Date Instruction Additional Infor sujatha Impression/Plan Assessments Type Assessment Date No Information Patient Care Teams Name Effective Dates (start - stop) Status Members No Information
--- OUTSIDE RECORDS SUMMARY | 2024-03-22 09:34 | XMS_ITS | Clinical Summary ---
Author Organization [facility] Address [address] [place] [address] Phone Care Team Providers Care Welding Machine Operator Helper Arc Name Role Phone Jp Schulz MD Primary Care Provider Allergies Active Allergy Reactions Criticality Noted Date Comments Acetaminophen-Codeine Other (see Comments) 08/15 Medications No known medications Social History Tobacco Use Types Packs/Day Years Used Date Smoking Tobacco: Never Assessed Comments Unknown Sex and Gender Information Value Date Recorded Sex Assigned at Not on file Legal Sex Female 12:04 AM CDT Gender Identity Not on file Sexual Orientation Not on file Last Filed Vital Signs Vital Sign Reading Time Taken Comments Blood Pressure 155/91 09/06/2023 5:15 PM CDT Pulse 80 09/06/2023 5:15 PM CDT Temperature 36.4 C (97.6 F) 09/06/2023 5:15 PM CDT Respiratory Rate 15 09/06/2023 5:15 PM CDT Oxygen Saturation 100% 09/06/2023 5:15 PM CDT Inhaled Oxygen Concentration - - Weight 81.6 kg (180 lb) 09/06/2023 5:15 PM CDT Height 162.6 cm (5' 4 ) 09/06/2023 5:15 PM CDT Body Mass Index 30.9 09/06/2023 5:15 PM CDT Plan of Treatment Health Maintenance Due Date Last Done Comments Hepatitis C Virus (HCV) Screening 1955 Cologuard 2007 Immunochemical Fecal Occult Blood 2007 Influenza Immunization (#1) 10/16/20232023, 02/09/2020, 01/22/2019, Additional history exists SARS-COV-2 Immunization ( season) 2023 01/14/2021, 05/24/2020, 05/02/2020 DEXA Bone Density 10/21/2024 10/21/2022 Mammogram 06/15/2025 06/16/2023, 04/14, 04/01/2021, Additional history exists Colonoscopy 10/02/2028 10/02/2018 Colorectal Cancer Screening 10/02/2028 Respiratory Syncytial Virus (RSV) Immunization (Adult) (1 - 1-dose 75+ series) 01/07/2032 10/02/2018 TdaP Immunization Completed 04/12/2008 Zoster Immunization Completed 04/26/2022, 3 Pneumococcal Immunization (50+ years) Completed 09/29/2022 Hepatitis B Immunization Aged Out No longer eligible based on patient's age to complete this topic Meningococcal Immunization (ACWY) Aged Out No longer eligible based on patient's age to complete this topic Rotavirus Immunization Aged Out No lo nger eligible based on patient's age to complete this topic [place] [address] [facility] Care Teams Welding Machine Operator Helper Arc Relationship Specialty Start Date End Date Jp Schulz MD [address] [facility], [address] [address] PCP - General Family Medicine 09/06/23
--- OUTSIDE RECORDS SUMMARY | 2024-03-22 09:34 | XMS_ITS | Clinical Summary ---
Author Organization [facility] Address [address] [place] [address] Care Team Providers Care Tub Washer Name Role Phone Jp Schulz MD Primary Care Provider Manuelito Mendenhall SWAMPER Unavailable [phone] Soraya Lockwood SWAMPER Unavailable [phone] Allergies Active Allergy Reactions Criticality Noted Date Comments Acetaminophen-Codeine Other (See comments) Low 08/15 Codeine Nausea only Low Reaction: Nausea, Ketorolac Nausea only Low 01/21/2023 Tramadol Nausea only Low 01/21/2023 Medications melatonin 5 mg tablet 1 tablet (5 mg total) Active cholecalciferol, vitamin D3, (VITAMIN D3 ORAL) Take 1,000 Units by mouth Active biotin 10,000 mcg capsule Take by mouth Active snbpxvgojuzg-If-yxl n-minerals tablet Take by mouth Active senna-docusate [...] diagnosis 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 She has been using Advil-PM --> for sleep, discussed to switch to benadryl only due to risk of mcc use of NSAIDS Discussed that NSAIDs have [...] pleased to be and was referred to [facility] - had complete workup including imaging and cystoscopy with normal finding and was told she likely passed a kidney stones Assessment & Plan (12/20/2022 5:13 PM SHIPS OR BARGES LOADER): CT scans without renal mass. Urological referral for cystoscopy and completion of work up. Diverticulitis 12/20/2022 Assessment & Plan (12/20/2022 5:13 PM SHIPS OR BARGES LOADER): Complete course of antibiotics. Colonoscopy ordered. High-fiber [...] management Assessment & Plan (12/20/2022 5:13 PM SHIPS OR BARGES LOADER): Pain management referral. Family members have had [...] 2028. Mammogram due September 2019. Follow-up the pipe fitter for breast exam and pelvic exam as [...] 2018. Mammogram yearly. She should see her pipe fitter for breast exam and pelvic exam is a direct. We will see her back in 1 year for full physical and fasting lab sooner if needed. Allergic rhinitis 07/12/2017 Insomnia 07/12/2017 Assessment & Plan (10/04/2023 11:17 AM CDT): - Chronic condition, controlled - Uses Melatonin PRN only and 2 Advil PM at night - discussed risk of mcc NSAID use --> asked her to discontinue [...] (08/04/2018): Added automatically from request for surgery [id number] Mass of left side of neck 12/12/2017 [...] office for Shingrix vaccination next wellness visit Encounters Date Type Department Care Team Description 03/14/2024 Telephone [facility] G[facility]ology at [place] [address] [place] [address] Nereida Sandhu MA 02/21/2024 5:10 PM SHIPS OR BARGES LOADER - 02/21/2024 11:59 PM SHIPS OR BARGES LOADER Hospital Encounter [facility] [address] [place] [address] Lumbar radicular pain Discharge Disposition: Discharge to home or self care from Last 3 Months Immunizations Name Administration Dates Next Due Hep A, Adult 04/26/2022 Influenza, Quad, Adjuvantate d, Intramuscular 02/18/2022 Influenza, Quadrivalent, Spl it, Preservative Free, Intramuscular 02/09/2020,01/22/2019 Influenza, Unspecified 10/03/2023(Deferr ed: Patient Refused),11/14/2020(Deferred: Patient Refused),11/18/2017 Pfizer SARS-CoV-2 Monovalent Vaccination (12+ Yrs) PURPLE 01/14/2021,05/24/2020,05/02/2020 Pneumococcal Conjugate Pcv20 09/29/2022 Td, adsorbed 07/13/2018 Tdap 04/12/2008 ZOSTER Recombinant 04/26/2022,02/19/2022 Surgical History Surgery Date Site/Laterality Comments OTHER SURGICAL HISTORY 02/14/1995 - 02/14/1996 Hysterectomy with BSO COLONOSCOPY 05/17/2008 REDUCTION MAMMAPLASTY 02/14/1993 - 02/13/1994 Bilateral BREAST BIOPSY 1989? Left cyst? OOPHORECTOMY 02/14/1994 - 02/13/1995 HYSTERECTOMY 02/14/1994 - 02/13/1995 Medical History Medical History Date Comments Hx Other Medical 1987 Rt Knee Surgery Hx Other Medical 1988 Rt Knee Surgery Hx Other Medical 1994 Breast Reducati on Hx Other Medical Lumbar DDD L4-L 5 Breast cyst left Hypothyroidism Family History Medical History Relation Name Comments Other Father - MVA Father adopte d; Lung cancer Father's Sister Cancer -lung ; Alzheimer's disease Mother Alzheime r's Disease; Coronary artery disease Mother Tevin nary artery disease; Diabetes type II Sister 1 Diabetes -T ype 2; Other Sister 2 Pacer; Coronary artery disease Sister 3 Tevin nary artery disease; Hypothyroidism Son Hypothyroidis m; Breast cancer Neg Hx Ovarian cancer Neg Hx Thyroid cancer Neg Hx Relation Name Status Comments Father - MVA Alive Father's Sister Mother Sister 1 Sister 2 Sister 3 Son Social History Tobacco Use Types Packs/Day Years [...] on file Legal Sex Female 9:22 AM SHIPS OR BARGES LOADER Gender Identity Not on file Sexual Orientation Not on file Obstetrics History Para Term AB IAB SAB Ectopic Multiple Livin g Live Births 2 2 2 Date Outcome GA Total Labor Labor/2nd/3rd Weight Sex Type Anes PTL Mariam A1 A5 Name Clin Term Term Last Filed Vital Signs Vital Sign Reading [...] st Contact Info) Description 03/23/2024 9:30 AM SHIPS OR BARGES LOADER Hospital Encounter [address] [address] Smitha Kendall MD [address] [place] [address] [address] 03/23/2024 9:30 AM SHIPS OR BARGES LOADER - 03/23/2024 10:00 AM SHIPS OR BARGES LOADER Surgery [address] [place] [address] Smitha Kendall MD [address] [place] [address] [place] [address] COLONOSCOPY Scheduled Procedures Name Priority Associated Diagnoses Date/Ti me COLONOSCOPY H/O colonoscopy with polypectomy Personal history of colonic polyps Irritable bowel syndrome with constipation and diarrhea 03/23/2024 9:30 AM SHIPS OR BARGES LOADER Health Maintenance Due Date Last Done Comments Hepatitis B Screening 1973 Colon Cancer Screening-Colonoscopy 10/03/2023 10/02/2018, 05/17/2008 Covid-19 Vaccine ( - 2023-2 5 season) 2023 02/18/2022, 01/14/2021, 05/24/2020, Additional history exists Influenza Vaccine (#1) 2023 , 02/09/2020, 01/22/2019, Additional history exists Breast Cancer Screening-Mammogram 06/15/2024 06/16/2023, 06/16/2023, 04/29/2022, Additional history exists Depression Screening 10/02/2024 10/03/2023, 12/20/2022, 09/29/2022, Additional history exists Fall Risk Assessment 10/02/2024 10/03/2023, 12/20/2022, 09/29/2022, Additional history exists Well Visit 65+ 10/02/2024 10/03/2023, 09/14, 09/24/2021, Additional history exists Osteoporosis Screening-Bone Density Scan 10/21/2024 10/21/2022, 10/21/2022, 09/02/2015 DTaP/Tdap/Td Vaccine (3 - Td or Tdap) 07/13/2028 07/13/2018, 04/12/2008 Hepatitis C Screening Completed 06/22/2016 Colon Cancer Screening-CT Colonography Discontinued 10/02/2018, 05/17/2008 Colon Cancer Screening-DNA Stool Discontinued 10/03/19 19, 05/17/2008 Colon Cancer Screening-FIT Discontinued 10/02/2018, Colon Cancer Screening-Sigmoidoscopy Discontinued 10/02/2018, 05/17/2008 Zoster Vaccine Completed 04/26/2022, 02/19/2022 Pneumococcal vaccine 65+ Completed 09/29/2022 Procedures Procedure Name Priority Date/Time Associated Diagnosis Comments MRI LUMBAR SPINE WO CONTRAST Schedule Routine, Read Routine (OP Routine) 02/21/2024 5:42 PM SHIPS OR BARGES LOADER Lumbar radicular pain SCREENING MAMMOGRAM BILATERAL W [...] Lumbar Spine WO Contrast (02/21/2024 5:42 PM SHIPS OR BARGES LOADER) Anatomical Region Laterality Modality Spine N/A Magnetic Resonan ce 02/22/2024 7:11 AM SHIPS OR BARGES LOADER Narrative 02/22/2024 7:18 AM SHIPS OR BARGES LOADER EXAM DESCRIPTION: MRI LUMBAR SPINE WO CONTRAST [...] abdomen and pelvis 12/16/2022. FINDINGS: SEGMENTATION: 5 ljo-ejx-xaqxoqk lumbar type vertebral bodies. ALIGNMENT: Mild anterolisthesis [...] dorsal epidural fat. Mild spinal canal stenosis. Jxeh-mlvisqg-wsil-right lateral recess effacement. Mcfy-vn-ulffodzt neural foraminal narrowing, cawd-wuelfki-pqrs-right. L4-L5: Disc bulge with marginal spur formation. Superimposed central disc protrusion. Thickened ligamentum flavum and facet arthropathy. Proliferation of dorsal epidural fat. Moderate spinal canal stenosis. Lateral recess effacement on both sides with disc/marginal spur and facet arthropathy obscuring the descending L5 nerve roots. Rqjk-ls-ijfmezrx neural foraminal narrowing. L5-S1: Disc bulge with [...] Gabo Moore D.O. AP: SAM Report ID: [id number] Reading Location: [id number] Procedure Note Gabo Moore, DO - 02/22/2024 [...] abdomen and pelvis 12/16/2022. FINDINGS: SEGMENTATION: 5 oau-xcv-dfolqgn lumbar type vertebral bodies. ALIGNMENT: Mild anterolisthesis [...] dorsal epidural fat. Mild spinal canal stenosis. Etbi-appejuk-tsdq-right lateral recess effacement. Bdis-va-zuozdcsw neural foraminal narrowing, pxmh-wpfiezg-ozvm-right. L4-L5: Disc bulge with marginal spur formation. Superimposed central disc protrusion. Thickened ligamentum flavum and facet arthropathy.Proliferation of dorsal epidural fat. Moderate spinal canal stenosis. Lateral recess effacement on both sides with disc/marginal spur and facet arthropathy obscuring the descending L5 nerve roots. Olpj-pl-kdcwmzdl neuralforaminal narrowing. L5-S1: Disc bulge with marginal [...] Gabo Moore D.O. AP: AP Report ID: [id number] Reading Location: [id number] us Soraya Lockwood NP IMG MRI PROCEDURES Final [...] There has been no suspicious interval change. us Andreina Sandhu MD IMG MAMMO PROCEDURES Final [...] history of: osteopenia Osteoporosis screening Post menopausal Green End Worker/Model: Dreamise SL (S/N [id number]) CLINICAL INFORMATION: Current height: 63 inches Maximum [...] Bertrand Arndt M.D. MF: JAYNE Report ID: [id number] Reading Location: [place] [address] Procedure Note Bertrand Arndt MD - 10/21/2022 EXAM DESCRIPTION: DEXA AXIAL SKELETON BONE DENSITY 1 OR MORE SITES REASON FOR STUDY: 67 y/o year old F with given history of: osteopenia Osteoporosis screening Post menopausal Green End Worker/Model: Toroleo Discovery SL (S/N [id number]) CLINICAL INFORMATION: Current height: 63 inches Maximum [...] Bertrand Arndt M.D. MF: JAYNE Report ID: [id number] Reading Location: [place] [address] us Andreina Sandhu MD IMG DXA PROCEDURES Final Res ult * COLONOSCOPY (10/02/2018 8:43 AM CDT) Anatomical Region Laterality Modality Other Narrative Procedure Note Smitha Kendall MD - 10/02/2018 8:43 AM CDT [facility] Patient Name: Airam Cantor Procedure Date: 10/02/2018 8:43 AM Date of : 1955 Admit Type: Outpatient Age: 63 Gender: Female Attending MD: Smitha Kendall M.D. Room: [facility] ENDOSCOPY ROOM 1 Note Status: Finalized Patient [...] passed under direct vision. ThePediatric Colonoscope [id number]-[id number] was introducedthrough the anus and advanced to [...] 8:43 AM Procedure Code(s): --- Professional --- 48143, Colonoscopy, flexible; with biopsy, single or multiple Diagnosis Code(s): --- Professional --- Z12.11, Encounter for screening for malignant neoplasm of colon D12.5, Benign neoplasm of sigmoid colon K64.8, Other hemorrhoids K57.30, Diverticulosis of large intestine without perforation orabscess without bleeding CPT copyright 2017 [employer] [place] [employer]. All rights reserved. The codes documented in this report are preliminary and upon chainstitch hemmer reviewmay be revised to meet current compliance requirements. Recognized by the [employer] [place] [employer] for promoting quality in endoscopy Smitha Kendall MD ENDOSCOPY PROCEDURES Final Result * Hepatitis C antibody (06/22/2016) SCRIBED HCV ab Negative [facility] Blood specimen (specimen) Narrative [facility] - 06/22/2016 Results already scanned into media. Historical Provider LAB MICROBIOLOGY - GENERA L ORDERABLES Final Result [facility] from Last 3 Months or Most Recently Relevant to Health Maintenance Insurance COMMERCIAL GENERIC MEDICARE MEDICARE FORMERLY [facility] PPO FORMER[facility] PPO FORMERLY [facility] PPO Advance Directives For more information, please contact: [phone] * Full Code (Latest Code Status on File) Date Activated Date Inactivated Comments 10/02/2018 9:11 AM 10/02/2018 2:44 PM * Full Code Date Activated Date Inactivated Comments 10/02/2018 9:11 AM 10/02/2018 9:11 AM Care Teams Tub Washer Relationship Specialty Start Date End Date Jp Schulz MD [address] [facility] [address] [place] [address] PCP - General Family Medicine 10/03/23 Manuelito Mendenhall NP [address] [facility] [address] [place] [address] Nurse Practitioner Gastroenterology 10/03/23 Soraya Lockwood NP [address] [place] [address] Nurse Practitioner Pain Management 10/27/23
== END 2024-03-22 09:16 | disposition home or self-care (01) ==
LOC: ANHIMG 09:23
PROVIDERS: PCP Family Medicine; Visit Provider Neurological Surgery
DX: M47.816 Spondylosis without myelopathy or radiculopathy, lumbar region (principal); M41.9 Scoliosis, unspecified; M51.369 Other intervertebral disc degeneration, lumbar region without mention of lumbar back pain or lower extremity pain
CPT/HCPCS: 72082; 72110

== ENCOUNTER 2024-05-10 13:59 | Outpatient (CLI) | payer OTHER, MEDICARE, SELFPAY ==
--- OUTSIDE RECORDS SUMMARY | 2024-05-10 14:53 | XMS_ITS | Encounter Summary ---
Author Organization [facility] Address [address] [place] [address] Care Team Providers Care Fuel Distribution System Operator Name Role Phone Jp Schulz MD Primary Care Provider Manuelito Mendenhall BOOTMAKER HAND Unavailable [phone] Soraya Lockwood BOOTMAKER HAND Unavailable [phone] Mark Garrido MD Unavailable Encounter Details Date Type Department Care Team (Late st Contact Info) Description 04/01/2024 Results Follow-Up [facility] Gastroenterology at [address] [place] [address] Smitha Kendall MD [address] [place] [address] [address] [place] [address] Social History Tobacco Use Types Packs/Day Years Used Date Smoking Tobacco: Never Smokeless Tobacco: Never Alcohol Use Standard Drinks/Week Comments No 0 (1 standard drink = 0.6 oz pur e alcohol) AUDIT-C Answer Date Recorded Q1: How often do you have a drink containing alcohol? Never 04/04/2024 Q2: How many drinks containi ng alcohol do you have on a typical day when you are drinking? Patient does not drink Q3: How often do you have si x or more drinks on one occasion? Never 04/04/2024 PHQ-2 Answer Date Recorded PHQ-2 Total Score (If total score is 3 or more points, staff should administer the PHQ-9) 0 04/04/2024 Personal Safety Answer Date Recorded Have you ever been in or are you currently in a harmful physical or emotional relationship or is someone making you feel afraid or unsafe? Denies 03/23/2024 Comments No Sex and Gender Information Value Date Recorded Sex Assigned at Not on file Legal Sex Female 9:22 AM SMT OPERATOR Gender Identity Not on file Sexual Orientation Not on file documented as of this encounter Functional Status * Audit-C Score Answer Date of Assessment Author 0 04/04/2024 12:05 PM SMT OPERATOR Gaudencio Jang MA * Question Answer Date of Assessment Author Q1: How often do you have a drink containing alcohol? Never 04/04/2024 12:05 PM Nova Mccollum MA Q2: How many drinks containing alcohol do you have on a typical day when you are drinking? Patient does not drink 04/04/2024 12:05 PM Nova Mccollum MA Q3: How often do you have six or more drinks on one occasion? Never 04/04/2024 12:05 PM Nova Mccollum MA documented as of this encounter Plan of Treatment Not on file documented as of this encounter Visit Diagnoses Not on filedocumented in this encounter Care Teams Fuel Distribution System Operator Relationship Specialty Start Date End Date Jp Schulz MD [address] [facility] [facility] [address] [place] [address] PCP - General Family Medicine 10/03/23 Manuelito Mendenhall NP [address] [place] [address] Nurse Practitioner Gastroenterology 10/03/23 Soraya Lockwood NP [address] [place] [address] Nurse Practitioner Pain Management 10/27/23 [place] [address] [place] [address] Consulting Physician Neurosurgery 04/04/24 documented as of this encounter
--- OUTSIDE RECORDS SUMMARY | 2024-05-10 14:53 | XMS_ITS | Continuity of Care Document ---
Author Organization [facility] Address [address] [place] [address] Phone Care Team Providers Care Registered Nurse Maternity Name Role Phone Zackary Godfrey MD Unavailable Unavailable Allergies, Adverse Reactions, Alerts Substance Reaction Status Criticality CODEINE PHOSPHATE Active No Informa tion acetaminophen Active No Information Medications Medication Instructions Dosage Effective Dates (start - stop) Status Comments Tirosint 75 mcg capsule take 1 capsule by oral route every day 75 MCG - Active lovastatin 20 mg tablet take 1 tablet by oral route every day with the evening meal 20 MG - Active Procedures Procedure Date Eye Exam, New Patient Advance Directives Directive Yes / No Effective Date File Name No Information Encounters Encounter Description Practice Location Reason(s) For Visit Diagnoses Date Provider Providers Copied on Encounter [facility], [address] [place] [address] [address], [place], [place], [id number], [place] tel:[phone] [facility] [place] RAFFI Professional No Information 3 Epifanio Raymundo. [address] [facility] [address], [place], [place], [id number], [place]. 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 [address] [facility], [place], [address], [place]. tel:[phone] Referring Provider: Luis Cruz OD R, [address] [facility] [address]th [address], [place], [address]. tel:[phone] Family History Family Member Type Diagnosis Age At Onset Problem Family history of Glaucoma Problem Family history of Diabetes m ellitus Problem (finding) Family history of Retin al disease Payers Payer name Insurance type Covered libertarian ID Authoriza tijoseph(s) Jennifer CI [id number] Social History Type Description Quantity Date Captured [...]
--- OUTSIDE RECORDS SUMMARY | 2024-05-10 14:53 | XMS_ITS | Clinical Summary ---
Author Organization [facility] Address [address] [place] [id number] Care Team Providers Care Power Electronics Engineer Name Role Phone Jp Schulz MD Primary Care Provider Manuelito Mendenhall PRINCIPAL ADMINISTRATIVE CLERK Unavailable [phone] Soraya Lockwood PRINCIPAL ADMINISTRATIVE CLERK Unavailable [phone] Mark Garrido MD Unavailable [phone] Allergies Active Allergy Reactions Criticality Noted Date Comments Acetaminophen-Codeine Other (See comments) Low 08/15 Codeine Nausea only Low Reaction: Nausea, Ketorolac Nausea only Low 01/21/2023 Tramadol Nausea only Low 01/21/2023 Medications melatonin 5 mg tablet 1 tablet (5 mg total) Active cholecalciferol, vitamin D3, (VITAMIN D3 ORAL) Take 1,000 Units by mouth Active biotin 10,000 mcg capsule Take by mouth Active lkgyqkabtefr-Ox-ymm n-minerals tablet Take by mouth Active senna-docusate (PERICOLACE) 8.6-50 mg Take 1-2 pills nightly or at least 3 times weekly to help with larger and more complete morning bowel movements. 60 tablet 5 3 Active levothyroxine (SYNTHROID) 88 mcg tabletIndications:A cquired hypothyroidism Take 1 tablet (88 mcg total) by mouth daily 90 tablet 3 4 Active lovastatin (MEVACOR) 20 mg tabletIndications:M ultiple-type hyperlipidemia Take 1 tablet (20 mg total) by mouth nightly 90 tablet 3 4 Active psyllium (METAMUCIL) powder Take 1 packet by mouth 3 (three) times a day Active Active Problems Problem Noted Date Diagnosed Date NSAID long-term use 10/04/2023 Assessment & Plan (10/04/2023 11:16 AM CDT): New diagnosis Patient has been noted to have jail current use of NSAIDs. She has been using Advil-PM --> for sleep, discussed to switch to benadryl only due to risk of jail use of NSAIDS Discussed that NSAIDs have [...] weight management options and monitoring calorie intake Class 1 obesity due to exces s calories with serious comorbidity and body mass index (BMI) of 31.0 to 31.9 in adult 10/03/2023 Assessment & Plan (04/04/2024 12:17 PM DISK SHARPENER): Wt Readings from Last 3 Encounters: 04/04/24 83 kg (182 lb 14.4 oz) 03/23/24 82 kg (180 lb 12.4 oz) 10/03/23 85.6 kg (188 lb 12.8 oz) Body mass index is 31.38 kg/m . - chronic condition, not at goal - goal BMI <30 - BMI Follow-up includes: nutrition counseling, exercise [...] will be around 1400 calories per day Assessment & Plan (10/04/2023 11:17 AM CDT): [...] will be around 1400 calories per day History of colonic polyps 01/21/2023 Assessment & Plan (04/04/2024 12:17 PM DISK SHARPENER): - up to date Colonoscopy 03/2024 Impression: - One 4 mm polyp in the ascending colon, removed with a jumbo cold forceps. Resected and retrieved. - Diverticulosis in the colon. - Internal hemorrhoids. Recommendation: - Await pathology results. - Repeat colonoscopy in 5 years for surveillance. - Continue present medications. Use dpmp-mtx-jycfflz fiber supplements daily Assessment & Plan (10/03/2023 12:40 PM CDT): - she has colonoscopy scheduled for 03/23/2024, patient has known history of colon polyps Irritable bowel syndrome with constipation and d iarrhea 01/21/2023 Assessment & Plan (04/05/2024 4:57 AM DISK SHARPENER): - chronic, recurring, better controlled - has started taking metamucil with improved with bowel movements - continue management History of hematuria 12/20/2022 Assessment & Plan (10/04/2023 11:17 AM CDT): - she was referred to Urology for hematuria by prior pleased to be and was referred to [facility] - had complete workup including imaging and cystoscopy with normal finding and was told she likely passed a kidney stones Assessment & Plan (12/20/2022 5:13 PM DISK SHARPENER): CT scans without renal mass. Urological referral for cystoscopy and completion of work up. History of diverticulitis of colon 12/16/2022 Overview (10/04/2023): - Diverticulitis - many years ago in ED, states in Lumbar radiculopathy 09/29/2022 Overview (04/05/2024): Follows with pain management as interventional pain consultants for lumbar radicular pain, osteoarthritis of right hip and other chronic pain She has had L4-L5 ES I was 90% benefit Status post right eye a hip injections for osteoarthritis of right hip with 40% benefit About to see neurosurgery Assessment & Plan (04/04/2024 12:28 PM DISK SHARPENER): - chronic condition, stable status - managed by Interventional pain management - known conditions of right sided Lumbar radiculopathy and DDD of lumbar spine - states almost 30 years ago was told had bulging disc L4-L5 - Family members have had difficulty with opioid use and would prefer to avoid medication if able to in general - managed with injections in her back and x1 in her hip thus far --> but only lasting few weeks at a time so planning for surgical intervention - no longer taking advil PM at night - has been evaluated by neurosurgery Mark Garrido MD and has an upcoming appointment but will likely be set up for surgical intervention - Lumbar fusion surgery L4- L5 - continue current management per pain management Assessment & Plan (10/03/2023 12:38 PM CDT): [...] management Assessment & Plan (12/20/2022 5:13 PM DISK SHARPENER): Pain management referral. Family members have had difficulty with opioid use and would prefer to avoid medication if able. Assessment & Plan (09/29/2022 10:03 AM CDT): PRN meds for now. Call for lumbar spine xrays, Right hip xrays and PT eval when ready. 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 start using Benadryl in place of it Assessment & Plan (10/04/2023 11:17 AM CDT): - Chronic condition, controlled - Uses Melatonin PRN only and 2 Advil PM at night - discussed risk of jail NSAID use --> asked her to discontinue [...] past Acquired hypothyroidism 06/30/2013 Assessment & Plan (04/04/2024 12:17 PM DISK SHARPENER): - chronic condition - status: well controlled - any hx of surgery, radiation: none - current medication: Levothyroxine 88 mcg daily - most recent labs as shown below The current medical regimen is effective; continue present plan and medications. Lab Results Component Value Date TSH 1.43 09/26/2023 TSH 2.48 09/22/2022 TSH 0.34 09/10/2021 FREET4 1.3 09/26/2023 FREET4 1.2 09/22/2022 FREET4 1.58 09/10/2021 Assessment & Plan (10/03/2023 12:43 PM CDT): [...] Impaired fasting glucose 06/30/2013 Assessment & Plan (04/04/2024 12:19 PM DISK SHARPENER): - chronic condition, persistent - not on any medications - will continue to monitor - Patient should reduce sugar and carbs, increase exercise, maintain proper body weight, and will check an A1c once or twice yearly. Lab Results Component Value Date HGBA1C 6.0 (H) 09/26/2023 HGBA1C 5.6 09/22/2022 HGBA1C 5.6 09/10/2021 Lab Results Component Value Date LDLCALC 91 09/10/2021 CREATININE 1.06 (H) 09/26/2023 Assessment & Plan (10/03/2023 12:42 PM CDT): [...] (07/12/2017): LDL baseline 206 Assessment & Plan (04/04/2024 12:19 PM DISK SHARPENER): - chronic condition - status: is adequately [...] 09/26/2023 BILITOT 0.4 09/26/2023 Assessment & Plan (10/03/2023 12:42 PM CDT): [...] Problem Noted Date Diagnosed Date Resolved Date Medicare annual wellness visit, subsequent 10/03/2023 04/04/2024 Irritable bowel syndrome wit h both constipation and diarrhea 01/21/2023 10/03/2023 History of colonoscopy with polypectomy 01/21/2023 10/03/2023 H/O colonoscopy with polypectomy 01/21/2023 10/03/2023 Diverticulitis 12/20/2022 04/04/2024 Assessment & Plan (12/20/2022 5:13 PM DISK SHARPENER): Complete course of antibiotics. Colonoscopy ordered. High-fiber diet and Metamucil to avoid constipation. Encounter for vaccination 09/29/2022 Assessment & Plan [...] (08/04/2018): Added automatically from request for surgery [id number] Mass of left side of neck 12/12/2017 [...] office for Shingrix vaccination next wellness visit Healthcare maintenance 07/12/201704/04 Assessment & Plan (09/29/2022 10:15 AM CDT): [...] 2028. Mammogram due September 2019. Follow-up the emissions testing technician for breast exam and pelvic exam as [...] 2018. Mammogram yearly. She should see her emissions testing technician for breast exam and pelvic exam is a direct. We will see her back in 1 year for full physical and fasting lab sooner if needed. Encounters Date Type Department Care Team Description 04/04/2024 12:15 PM DISK SHARPENER Office Visit [facility] [place] [address] [place] [id number] Jp Schulz MD Lumbar radiculopathy (Primary Dx); History of colonic polyps; Class 1 obesity due to excess calories with serious comorbidity and body mass index (BMI) of 31.0 to 31.9 in adult; Acquired hypothyroidism; Insomnia, unspecified type; Multiple-type hyperlipidemia; Impaired fasting glucose; Need for influenza vaccination; Need for hepatitis B screening test; Irritable bowel syndrome with constipation and diarrhea 04/01/2024 Results Follow-Up [facility] Gastroenterology at [place] [address] [place] [phone] Smitha Kendall MD 03/23/2024 9:30 AM DISK SHARPENER - 03/23/2024 10:00 AM DISK SHARPENER Surgery [address] [address] Smitha Kendall MD COLON BIOPSY 03/23/2024 9:20 AM DISK SHARPENER Anesthesia Event [address] [address] Ivan Keller MD 03/23/2024 8:18 AM DISK SHARPENER - 03/23/2024 10:36 AM DISK SHARPENER Hospital Encounter [address] [address] Smitha Kendall MD H/O colonoscopy with polypectomy; Personal history of colonic polyps; Irritable bowel syndrome with constipation and diarrhea; History of colonic polyps Discharge Disposition: Discharge to home or self care 03/22/2024 Orders Only [facility] Health Information Management [address] [place] [address] Jp Schulz MD 03/14/2024 Telephone [facility] G[facility]ology at [place] [address] [place] [address] Edson NereidaELIECER warner 02/21/2024 5:10 PM DISK SHARPENER - 02/21/2024 11:59 PM DISK SHARPENER Hospital Encounter [facility] [address] [place] [address] Lumbar radicular pain Discharge Disposition: Discharge to home or self care from Last 3 Months Immunizations Immunization Administration Dates Next Due Hep A, Adult 04/26/2022 Influenza, Quad, Adjuvantate d, Intramuscular 02/18/2022 Influenza, Quadrivalent, Spl it, Preservative Free, Intramuscular 02/09/2020,01/22/2019 Influenza, Trivalent, High D ose, Split, Preservative Free, Intramuscular 04/04/2024 Influenza, Unspecified 10/03/2023(Deferr ed: Patient Refused),11/14/2020(Deferred: Patient Refused),11/18/2017 [employer] SARS-CoV-2 Monovalent Vaccination (12+ Yrs) PURPLE 01/14/2021,05/24/2020,05/02/2020 Pneumococcal Conjugate Pcv20 09/29/2022 Td, adsorbed 07/13/2018 Tdap 04/12/2008 ZOSTER Recombinant 04/26/2022,02/19/2022 Surgical History Surgery Date Site/Laterality Comments OTHER SURGICAL HISTORY 02/14/1995 - 02/14/1996 Hysterectomy with BSO COLONOSCOPY 02/14/2018 - 02/13/2019 REDUCTION MAMMAPLASTY 02/14/1993 - 02/13/1994 Bilateral BREAST [...] Never Smokeless Tobacco: Never Tobacco Cessation:Counseling Given: Yes Alcohol Use Standard Drinks/Week Comments No 0 [...] on file Legal Sex Female 9:22 AM DISK SHARPENER Gender Identity Not on file Sexual Orientation Not on file Obstetrics History Para Term AB IAB SAB Ectopic Multiple Livin g Live Births 2 2 2 Date Outcome GA Total Labor Labor/2nd/3rd Weight Sex Type Anes PTL Mariam A1 A5 Name Clin Term Term Last Filed Vital Signs Vital Sign Reading Time Taken Comments Blood Pressure 138/88 04/04/2024 11:53 AM DISK SHARPENER Pulse 76 04/04/2024 11:53 AM DISK SHARPENER Temperature 36.4 C (97.6 F) 04/04/2024 11:53 AM DISK SHARPENER Respiratory Rate 16 04/04/2024 11:53 AM DISK SHARPENER Oxygen Saturation 97% 04/04/2024 11:53 AM DISK SHARPENER Inhaled Oxygen Concentration - - Weight 83 kg (182 lb 14.4 oz) 04/04/2024 11:53 A M DISK SHARPENER Height 162.6 cm (5' 4.02 ) 04/04/2024 11:[address] Body Mass Index 31.38 04/04/2024 11:53 AM DISK SHARPENER Plan of Treatment Health Maintenance Due Date Last Done Comments Hepatitis B Screening 1973 Covid-19 Vaccine (5 - 2023-2 5 season) 2023 02/18/2022, 01/14/2021, 05/24/2020, Additional history exists Breast Cancer Screening-Mammogram 06/15/2024 06/16/2023, 06/16/2023, 04/29/2022, Additional history exists Well Visit 65+ 10/02/2024 10/03/2023, 09/14, 09/24/2021, Additional history exists Osteoporosis Screening-Bone Density Scan 10/21/2024 10/21/2022, 10/21/2022, 09/02/2015 Depression Screening 04/04/2025 04/04/2024, 10/03/2023, 12/20/2022, Additional history exists Fall Risk Assessment 04/04/2025 04/04/2024, 10/03/2023, 12/20/2022, Additional history exists DTaP/Tdap/Td Vaccine (3 - Td or Tdap) 07/13/2028 07/13/2018, 04/12/2008 Colon Cancer Screening-Colonoscopy 03/23/2029 03/23/2024, 10/02/2018, 05/17/2008 Hepatitis C Screening Completed 06/22/2016 Zoster Vaccine Completed 04/26/2022, 02/19/2022 Pneumococcal vaccine 65+ Completed 09/29/2022 Colon Cancer Screening-CT Colonography Discontinued 03/23/2024, 10/02/2018, 05/17/2008 Colon Cancer Screening-DNA Stool Discontinued 03/23/2024, 10/02/2018, 05/17/2008 Colon Cancer Screening-FIT Discontinued 03/23, 10/02/2018, 05/17/2008 Colon Cancer Screening-Sigmoidoscopy Discontinued 03/23/2024, 10/02/2018, 05/17/2008 Influenza Vaccine Completed 04/04/2024, , 02/09/2020, Additional history exists Procedures Procedure Name Priority Date/Time Associated Diagnosis Comments SURGICAL PATHOLOGY STAT 03/23/2024 1: 31 PM DISK SHARPENER H/O colonoscopy with polypectomy History of colonic polyps Irritable bowel syndrome with constipation and diarrhea COLON BIOPSY 03/23/2024 9:13 AM DISK SHARPENER H/O colonoscopy with polypectomy Personal history of colonic polyps Irritable bowel syndrome with constipation and diarrhea COLONOSCOPY 03/23/2024 8:32 AM DISK SHARPENER SCAN - RADIOLOGY/IMAGING 03/22/2024 MRI LUMBAR SPINE WO CONTRAST Schedule Routine, Read Routine (OP Routine) 02/21/2024 5:42 PM DISK SHARPENER Lumbar radicular pain SCREENING MAMMOGRAM BILATERAL W JOSE Schedule Routine, Read Routine (OP Routine) 06/16/2023 4:53 PM CDT Screening mammogram for breast cancer DEXA AXIAL SKELETON BONE DENSITY 1 OR MORE SITES Schedule Routine, Read Routine (OP Routine) 10/21/2022 8:11 AM CDT Osteopenia, unspecified location HEPATITIS C ANTIBODY Routine 06/22/2016 from Last 3 Months or Most Recently Relevant to Health Maintenance Results * Surgical pathology (03/23/2024 1:31 PM DISK SHARPENER) Tissue (Polyp(s), colon/colorectal, esophageal, gastric) 03/23/2024 9:43 AM DISK SHARPENER Narrative [facility]Y [facility] - 03/26/2024 4:15 PM DISK SHARPENER [facility] results best viewed via link to PDF [facility] Department of Pathology [address] [place] [id number] Note to Patients: This report may contain a detailed description of human tissue sent by a health care provider to the laboratory for pathologic evaluation. The content of this report is essential for diagnosis and may provide important critical findings. This information may be unfamiliar to patients to review without a medical professional present. It is advised that the patient review this report in the presence of a health care provider who can answer questions and explain the details. Final Report Patient Name: ROMEL GREENE Address: [facility] [address] [place] [address] Gender: F : 1955 (Age: 69) Service: Gastro Location: [facility] Hospital #: [id number] Patient Type: [facility] Taken: 03/23/2024 Received: 03/23/2024 Accessioned: 03/23/2024 Reported: 03/26/2024 Physician(s):Dr. Smitha Kendall M.D. Diagnosis: Colon, ascending, biopsy: - Hyperplastic polyp. - No evidence of dysplasia or malignancy. Juan José Pabon MD Report Electronically Reviewed and Signed Out By Juan José Pabon MD 03/26/2024 16:15:15 Specimen(s) Received: A: Ascending colon polyp x 1 Microscopic Description: Microscopic examination shows four polypoid fragments of colonic mucosa with subtle hyperplastic glandular changes. There is no evidence of marked crypt dilation, lateral branching, or flattening of the crypt bases. The findings are consistent with a hyperplastic polyp. There is no evidence of dysplasia or malignancy. Clinical History: History of colonoscopy with polypectomy. Personal history of colonic polyps. Irritable bowel syndrome with contipation and diarrhea. Colonoscopy. Gross Description: The specimen is submitted in a single formalin filled container labeled ROMEL GREENE and ascending colon polyp . It is 4 fragments of pineda tissue between 1 and 2 mm. All in one cassette. Brian Strange R.N., P.A./Karen Andrade M.D. REPORT IMAGES AND SCANNED DOCUMENTS, IF INCLUDED, ONLY VIEWABLE IN PDF VERSION OF REPORT The performance characteristics of some immunohistochemical stains, fluorescence in-situ hybridization tests and immunophenotyping by flow cytometry cited in this report (if any) were determined by the Surgical Pathology Department at [facility] as part of an ongoing chemistry quality control technician program and in compliance with federally mandated regulations drawn from the Clinical Laboratory Improvement Act of 1988 (CLIA '88). Some of these tests rely on the use of analyte specific reagents and are subject to specific labeling requirements by the US Food and Drug Administration. Such diagnostic tests may only be performed in a facility that is certified by the Department of Health and Human Services as a high complexity laboratory under CLIA '88. The FDA has determined that such clearance or approval is not necessary. This test is used for clinical purposes. It should not be regarded as investigational or for research. Nevertheless, federal rules concerning the medical use of analyte specific reagents require that the following disclaimer be attached to the report: This test was developed and its performance characteristics determined by the Surgical Pathology Department [facility]. It has not been cleared or approved by the U. S. Food and Drug Administration. Note for decalcified specimens: This assay has not been validated on decalcified tissues. Results should be interpreted with caution given the possibility of false negativity on decalcified specimens us Smitha Kendall MD LAB PATHOLOGY ORDERABLES F inal Result PATHOLOGY [facility] [address] [place] [id number] * Colonoscopy (03/23/2024 8:32 AM DISK SHARPENER) Anatomical Region Laterality Modality Other Narrative Procedure Note Smitha Kendall MD - 03/23/2024 8:32 AM CST [facility] Patient Name: Romel Greene Procedure Date: 03/23/2024 8:32 AM Date of : 1955 Admit Type: Outpatient Age: 69 Gender: Female Attending MD: Smitha Kendall M.D. Room: [facility] ENDOSCOPY ROOM 1 Note Status: Finalized Patient Profile: This is a 69 year old female. History of benign polyps. Noted complains of chronic constipationwith bowel movements every few days. No family historyof colon cancer. Procedure: Colonoscopy Indications: High risk colon cancer surveillance: Personalhistory of colonic polyps, Last colonoscopy: 2019 Referring MD: Jp Schulz M.D. Providers: Smtiha Kendall M.D. Impression: - One 4 mm polyp in the ascending colon, removedwith a jumbo cold forceps. Resected and retrieved. - Diverticulosis in the colon. - Internal hemorrhoids. Recommendation: - Await pathology results. - Repeat colonoscopy in 5 years for surveillance. - Continue present medications. Oqdijdn-kuh-gghueef fiber supplements daily Medicines: Monitored Anesthesia Care Complications: No immediate complications. Estimated Blood Loss: Estimated blood loss: none. Procedure: Pre-Anesthesia Assessment: - Prior to the procedure, a History and Physicalwas performed, and patient medications and allergieswere reviewed. The patient's tolerance of previous anesthesia was also reviewed. The risks andbenefits of the procedure and the sedation options and risks were discussed with the patient. All questions were answered, and informed consent was obtained. Prior Anticoagulants: The patient has taken noanticoagulant or antiplatelet agents. ASA Grade Assessment: Per anesthesia note and evaluation. After reviewing the risks and benefits, the patient was deemed in satisfactory condition to undergo the procedure. The benefits, risks and alternatives of theprocedure and sedation were discussed and informed consentwas obtained. All questions were answered. Please referto the signed informed consent document in the medical record. The bowel preparation used was Miralax and bisacodyl tablets via split dose instruction. The scope was passed under direct vision. The Pediatric Colonoscope [id number]-H190L [id number] was introducedthrough the anus and advanced to the the cecum, identifiedby appendiceal orifice and ileocecal valve. Thequality of the bowel preparation was good. Bowel prep was administered using a split dose. Findings: The perianal and digital rectal examinations were normal. The cecum appeared normal. A 4 mm polyp was found in the ascending colon. The polyp was sessile. The polyp was removed with a jumbo cold forceps. Resection andretrieval were complete. Many small-mouthed diverticula were found in the sigmoid colon, descending colon and transverse colon. Internal hemorrhoids were found during retroflexion. The hemorrhoids were small. Electronically signed by Smitha Kendall M.D. Smitha Kendall M.D. 03/23/2024 10:02:32 AM Number of Addenda: 0 Note Initiated On: 03/23/2024 8:32 AM Procedure Code(s): --- Professional --- 57142, Colonoscopy, flexible; with biopsy, single or multiple Diagnosis Code(s): --- Professional --- Z86.010, Personal history of colonic polyps K64.8, Other hemorrhoids D12.2, Benign neoplasm of ascending colon K57.30, Diverticulosis of large intestine without perforation orabscess without bleeding CPT copyright 2020 [employer]. All rights reserved. The codes documented in this report are preliminary and upon collating machine operator reviewmay be revised to meet current compliance requirements. Recognized by the [employer] for promoting quality in endoscopy Smitha Kendall MD ENDOSCOPY PROCEDURES Final Result * SCAN - RADIOLOGY/IMAGING (03/22/2024) Anatomical Region Laterality Modality Other Jp Schulz MD Edited Result - Final * MRI Lumbar Spine WO Contrast (02/21/2024 5:42 PM DISK SHARPENER) Anatomical Region Laterality Modality Spine N/A Magnetic Resonan ce 02/22/2024 7:11 AM DISK SHARPENER Narrative 02/22/2024 7:18 AM DISK SHARPENER EXAM DESCRIPTION: MRI LUMBAR SPINE WO CONTRAST [...] abdomen and pelvis 12/16/2022. FINDINGS: SEGMENTATION: 5 imr-mlw-ywyjvyq lumbar type vertebral bodies. ALIGNMENT: Mild anterolisthesis [...] dorsal epidural fat. Mild spinal canal stenosis. Pxip-humuvyh-eiqt-right lateral recess effacement. Muia-ep-cwqljnxw neural foraminal narrowing, ffru-ekdjadx-cdfs-right. L4-L5: Disc bulge with marginal spur formation. Superimposed central disc protrusion. Thickened ligamentum flavum and facet arthropathy. Proliferation of dorsal epidural fat. Moderate spinal canal stenosis. Lateral recess effacement on both sides with disc/marginal spur and facet arthropathy obscuring the descending L5 nerve roots. Wzgm-ty-builubds neural foraminal narrowing. L5-S1: Disc bulge with [...] Gabo Moore D.O. AP: AP Report ID: [id number] Reading Location: [place] [address] Procedure Note Gabo Moore, DO - 02/22/2024 [...] abdomen and pelvis 12/16/2022. FINDINGS: SEGMENTATION: 5 exr-xks-rpxdgbu lumbar type vertebral bodies. ALIGNMENT: Mild anterolisthesis [...] dorsal epidural fat. Mild spinal canal stenosis. Tlru-sjutgci-dvfi-right lateral recess effacement. Yceh-vc-zcnqczae neural foraminal narrowing, ltfs-hbbzwdj-vetn-right. L4-L5: Disc bulge with marginal spur formation. Superimposed central disc protrusion. Thickened ligamentum flavum and facet arthropathy.Proliferation of dorsal epidural fat. Moderate spinal canal stenosis. Lateral recess effacement on both sides with disc/marginal spur and facet arthropathy obscuring the descending L5 nerve roots. Hvnz-iq-brpcsttj neuralforaminal narrowing. L5-S1: Disc bulge with marginal [...] Gabo Moore D.O. AP: AP Report ID: [id number] Reading Location: [place] [address] us Soraya Lockwood NP IMG MRI PROCEDURES [...] history of: osteopenia Osteoporosis screening Post menopausal Roll Operator/Model: Prezacor SL (S/N [id number]) CLINICAL INFORMATION: Current height: 63 inches Maximum [...] Bertrand Arndt M.D. MF: JAYNE Report ID: [id number] Reading Location: [address] Note Bertrand Arndt MD - 10/21/2022 EXAM DESCRIPTION: DEXA AXIAL SKELETON BONE DENSITY 1 OR MORE SITES REASON FOR STUDY: 67 y/o year old F with given history of: osteopenia Osteoporosis screening Post menopausal Roll Operator/Model: Easiaid (S/N [id number]) CLINICAL INFORMATION: Current height: 63 inches Maximum [...] Bertrand Arndt M.D. MF: JAYNE Report ID: [id number] Reading Location: [place] [address] Andreina Sandhu MD IMG DXA PROCEDURES Final Res ult * Hepatitis C antibody (06/22/2016) SCRIBED HCV ab Negative [facility] Blood specimen (specimen) Narrative [facility] - 06/22/2016 Results already scanned into media. Historical Provider LAB MICROBIOLOGY - GENERA L ORDERABLES Final Result [facility] from Last 3 Months or Most Recently Relevant to Health Maintenance Insurance COMMERCIAL GENERIC MEDICARE [facility] PPO [facility] PPO Advance Directives For more information, please contact: [phone] * Full Code (Latest Code Status on File) Date Activated Date Inactivated Comments 03/23/2024 8:23 AM 03/23/2024 2:36 PM * Full Code Date Activated Date Inactivated Comments 03/23/2024 8:23 AM 03/23/2024 8:23 AM * Full Code Date Activated Date Inactivated Comments 10/02/2018 9:11 AM 10/02/2018 2:44 PM * Full Code Date Activated Date Inactivated Comments 10/02/2018 9:11 AM 10/02/2018 9:11 AM Care Teams Power Electronics Engineer Relationship Specialty Start Date End Date Jp Schulz MD [address] [place] [address] PCP - General Family Medicine 10/03/23 Manuelito Mendenhall NP [address] [place] [address] Nurse Practitioner Gastroenterology 10/03/23 Soraya Lockwood NP [address] [place] [address] Nurse Practitioner Pain Management 10/27/23 [place] [address] [place] [address] Consulting Physician Neurosurgery 04/04/24
--- OUTSIDE RECORDS SUMMARY | 2024-05-10 14:53 | XMS_ITS | Referral Summary ---
Author Organization [facility] Address [address] [place] [address] Care Team Providers Care Riveting Machine Operator Tape Control Name Role Phone Jp Schulz MD Primary Care Provider Manuelito Mendenhall DIRECTOR OF INVESTIGATIONS Unavailable [phone] Soraya Lockwood DIRECTOR OF INVESTIGATIONS Unavailable [phone] Mark Garrido MD Unavailable [phone] Encounters Date Type Department Care Team Description 04/04/2024 12:15 PM TENNIS CENTRE MANAGER Office Visit [facility] [place] [address] [facility] [address] [place] [address] Jp Schulz MD Lumbar radiculopathy (Primary Dx); History of colonic polyps; Class 1 obesity due to excess calories with serious comorbidity and body mass index (BMI) of 31.0 to 31.9 in adult; Acquired hypothyroidism; Insomnia, unspecified type; Multiple-type hyperlipidemia; Impaired fasting glucose; Need for influenza vaccination; Need for hepatitis B screening test; Irritable bowel syndrome with constipation and diarrhea 04/01/2024 Results Follow-Up [facility] Gastroenterology at [place] [address] [facility] [address] [place] [address] Smitha Kendall MD 03/23/2024 9:20 AM TENNIS CENTRE MANAGER Anesthesia Event [facility] [address] [place] [address] Ivan Keller MD 03/23/2024 9:30 AM TENNIS CENTRE MANAGER - 03/23/2024 10:00 AM TENNIS CENTRE MANAGER Surgery [facility] [address] [place] [address] Smitha Kendall MD COLON BIOPSY 03/23/2024 8:18 AM TENNIS CENTRE MANAGER - 03/23/2024 10:36 AM TENNIS CENTRE MANAGER Hospital Encounter [address] [address] Smitha Kendall MD H/O colonoscopy with polypectomy; Personal history of colonic polyps; Irritable bowel syndrome with constipation and diarrhea; History of colonic polyps Discharge Disposition: Discharge to home or self care 03/22/2024 Orders Only [facility] [address] [place] [address] Jp Schulz MD 03/14/2024 Telephone [facility] Gastroenterology at [address] [place] [phone] Nereida Sandhu MA 02/21/2024 5:10 PM TENNIS CENTRE MANAGER - 02/21/2024 11:59 PM TENNIS CENTRE MANAGER Hospital Encounter [address] [address] Lumbar radicular pain Discharge Disposition: Discharge to [...] 10,000 mcg capsule Take by mouth Active amqocqtelsin-Pw-rxg n-minerals tablet Take by mouth Active senna-docusate [...] diagnosis Patient has been noted to have half-way current use of NSAIDs. She has been using Advil-PM --> for sleep, discussed to switch to benadryl only due to risk of terminal worker use of NSAIDS Discussed that NSAIDs have [...] 10/03/2023 Assessment & Plan (04/04/2024 12:17 PM TENNIS CENTRE MANAGER): Wt Readings from Last 3 Encounters: 04/04/24 [...] 01/21/2023 Assessment & Plan (04/04/2024 12:17 PM TENNIS CENTRE MANAGER): - up to date Colonoscopy 03/2024 Impression: - One 4 mm polyp in the ascending colon, removed with a jumbo cold forceps. Resected and retrieved. - Diverticulosis in the colon. - Internal hemorrhoids. Recommendation: - Await pathology results. - Repeat colonoscopy in 5 years for surveillance. - Continue present medications. Use qtey-pwu-srmiyvs fiber supplements daily Assessment & Plan (10/03/2023 12:40 PM CDT): - she has colonoscopy scheduled for 03/23/2024, patient has known history of colon polyps Irritable bowel syndrome with constipation and d iarrhea 01/21/2023 Assessment & Plan (04/05/2024 4:57 AM TENNIS CENTRE MANAGER): - chronic, recurring, better controlled - has started taking metamucil with improved with bowel movements - continue management History of hematuria 12/20/2022 Assessment & Plan (10/04/2023 11:17 AM CDT): - she was referred to Urology for hematuria by prior pleased to be and was referred to [facility] - had complete workup including imaging and cystoscopy with normal finding and was told she likely passed a kidney stones Assessment & Plan (12/20/2022 5:13 PM TENNIS CENTRE MANAGER): CT scans without renal mass. Urological referral [...] neurosurgery Assessment & Plan (04/04/2024 12:28 PM TENNIS CENTRE MANAGER): - chronic condition, stable status - managed [...] management Assessment & Plan (12/20/2022 5:13 PM TENNIS CENTRE MANAGER): Pain management referral. Family members have had difficulty with opioid use and would prefer to avoid medication if able. Assessment & Plan (09/29/2022 10:03 AM CDT): PRN meds for now. Call for lumbar spine xrays, Right hip xrays and PT eval when ready. Allergic rhinitis 07/12/2017 Insomnia 07/12/2017 Assessment & Plan (04/04/2024 12:26 PM TENNIS CENTRE MANAGER): - Chronic condition, controlled - Uses Melatonin PRN only - discussed risk of half-way NSAID use, no longer on Advil p.m. start using Benadryl in place of it Assessment & Plan (10/04/2023 11:17 AM CDT): - Chronic condition, controlled - Uses Melatonin PRN only and 2 Advil PM at night - discussed risk of terminal worker NSAID use --> asked her to discontinue [...] 06/30/2013 Assessment & Plan (04/04/2024 12:17 PM TENNIS CENTRE MANAGER): - chronic condition - status: well controlled [...] 06/30/2013 Assessment & Plan (04/04/2024 12:19 PM TENNIS CENTRE MANAGER): - chronic condition, persistent - not on [...] 206 Assessment & Plan (04/04/2024 12:19 PM TENNIS CENTRE MANAGER): - chronic condition - status: is adequately controlled. - per prior PCP her baseline LDL was 206 2017 - current management/medications: Lovastatin 20 mg [...] 04/04/2024 Assessment & Plan (12/20/2022 5:13 PM TENNIS CENTRE MANAGER): Complete course of antibiotics. Colonoscopy ordered. High-fiber [...] (08/04/2018): Added automatically from request for surgery [id number] Mass of left side of neck 12/12/2017 [...] 2028. Mammogram due September 2019. Follow-up the resource agent for breast exam and pelvic exam as [...] 2018. Mammogram yearly. She should see her resource agent for breast exam and pelvic exam is a direct. We will see her back in 1 year for full physical and fasting lab sooner if needed. Immunizations Immunization Administration Dates Next Due Hep A, Adult 04/26/2022 Influenza, Quad, Adjuvantate d, Intramuscular 02/18/2022 Influenza, Quadrivalent, Spl it, Preservative Free, Intramuscular 02/09/2020,01/22/2019 Influenza, Trivalent, High D ose, Split, Preservative Free, Intramuscular 04/04/2024 Influenza, Unspecified 10/03/2023(Deferr ed: Patient Refused),11/14/2020(Deferred: Patient Refused),11/18/2017 Aposense SARS-CoV-2 Monovalent Vaccination (12+ Yrs) PURPLE 01/14/2021,05/24/2020,05/02/2020 [...] on file Legal Sex Female 9:22 AM TENNIS CENTRE MANAGER Gender Identity Not on file Sexual Orientation Not on file Last Filed Vital Signs Vital Sign Reading Time Taken Comments Blood Pressure 138/88 04/04/2024 11:53 AM TENNIS CENTRE MANAGER Pulse 76 04/04/2024 11:53 AM TENNIS CENTRE MANAGER Temperature 36.4 C (97.6 F) 04/04/2024 11:53 AM TENNIS CENTRE MANAGER Respiratory Rate 16 04/04/2024 11:53 AM TENNIS CENTRE MANAGER Oxygen Saturation 97% 04/04/2024 11:53 AM TENNIS CENTRE MANAGER Inhaled Oxygen Concentration - - Weight 83 kg (182 lb 14.4 oz) 04/04/2024 11:53 A M TENNIS CENTRE MANAGER Height 162.6 cm (5' 4.02 ) 04/04/2024 11:[address] Body Mass Index 31.38 04/04/2024 11:53 AM TENNIS CENTRE MANAGER Plan of Treatment Not on file Procedures Procedure Name Priority Date/Time Associated Diagnosis Comments SURGICAL PATHOLOGY STAT 03/23/2024 1: 31 PM TENNIS CENTRE MANAGER H/O colonoscopy with polypectomy History of colonic polyps Irritable bowel syndrome with constipation and diarrhea COLON BIOPSY 03/23/2024 9:13 AM TENNIS CENTRE MANAGER H/O colonoscopy with polypectomy Personal history of colonic polyps Irritable bowel syndrome with constipation and diarrhea COLONOSCOPY 03/23/2024 8:32 AM TENNIS CENTRE MANAGER SCAN - RADIOLOGY/IMAGING 03/22/2024 MRI LUMBAR SPINE WO CONTRAST Schedule Routine, Read Routine (OP Routine) 02/21/2024 5:42 PM TENNIS CENTRE MANAGER Lumbar radicular pain SCREENING MAMMOGRAM BILATERAL W [...] Results * Surgical pathology (03/23/2024 1:31 PM TENNIS CENTRE MANAGER) Tissue (Polyp(s), colon/colorectal, esophageal, gastric) 03/23/2024 9:43 AM TENNIS CENTRE MANAGER Narrative PATHOLOGY [facility] - 03/26/2024 4:15 PM TENNIS CENTRE MANAGER EPIC results best viewed via link to PDF [facility] Department of Pathology [address] [place] [address] Note to Patients: This report may contain [...] Final Report Patient Name: ROMEL GREENE Address: [address] [place] [address] [place] [address] Gender: F : 1955 (Age: 69) Service: Gastro Location: [facility] Hospital #: [id number] Patient Type: [facility] Taken: 03/23/2024 Received: 03/23/2024 Accessioned: 03/23/2024 Reported: [...] a single formalin filled container labeled ROMEL THATCHER and ascending colon polyp . It is 4 fragments of pineda tissue between 1 and 2 mm. All in one cassette. Brian Strange R.N., P.Laura./Karen Andrade M.D. REPORT IMAGES AND SCANNED DOCUMENTS, IF INCLUDED, ONLY VIEWABLE IN PDF VERSION OF REPORT The performance characteristics of some immunohistochemical stains, fluorescence in-situ hybridization tests and immunophenotyping by flow cytometry cited in this report (if any) were determined by the Surgical Pathology Department at [facility] as part of an ongoing quality assurance tester program and in compliance with federally mandated [...] characteristics determined by the Surgical Pathology Department [facility]. It has not been cleared or approved by the U. S. Food and Drug Administration. Note for decalcified specimens: This assay has not been validated on decalcified tissues. Results should be interpreted with caution given the possibility of false negativity on decalcified specimens us Smitha Kendall MD LAB PATHOLOGY ORDERABLES F inal Result PATHOLOGY [facility] [address] [place] [address] * Colonoscopy (03/23/2024 8:32 AM TENNIS CENTRE MANAGER) Anatomical Region Laterality Modality Other Narrative Procedure Note Smitha Kendall MD - 03/23/2024 8:32 AM CST [facility] Patient Name: Romel Greene Procedure Date: 03/23/2024 8:32 AM Date of : 1955 Admit Type: Outpatient Age: 69 Gender: Female Attending MD: Smitha Kendall M.D. Room: [facility] ENDOSCOPY ROOM 1 Note Status: Finalized Patient Profile: This is a 69 year old female. History of benign polyps. Noted complains of chronic constipationwith bowel movements every few days. No family historyof colon cancer. Procedure: Colonoscopy Indications: High risk colon cancer surveillance: Personalhistory of colonic polyps, Last colonoscopy: 2019 Referring MD: Jp Schulz M.D. Providers: Smitha Kendall M.D. Impression: - One 4 mm polyp in the ascending colon, removedwith a jumbo cold forceps. Resected and retrieved. - Diverticulosis in the colon. - Internal hemorrhoids. Recommendation: - Await pathology results. - Repeat colonoscopy in 5 years for surveillance. - Continue present medications. Wwfiqul-akn-zgjlalh fiber supplements daily Medicines: Monitored Anesthesia Care [...] under direct vision. The Pediatric Colonoscope PCF-H190L [id number] was introducedthrough the anus and advanced to [...] 8:32 AM Procedure Code(s): --- Professional --- 04481, Colonoscopy, flexible; with biopsy, single or multiple Diagnosis Code(s): --- Professional --- Z86.010, Personal history of colonic polyps K64.8, Other hemorrhoids D12.2, Benign neoplasm of ascending colon K57.30, Diverticulosis of large intestine without perforation orabscess without bleeding CPT copyright 2020 [employer]. All rights reserved. The codes documented in this report are preliminary and upon picture copyist reviewmay be revised to meet current compliance requirements. Recognized by the [employer] for promoting quality in endoscopy Smitha Kendall MD ENDOSCOPY PROCEDURES Final Result * SCAN - RADIOLOGY/IMAGING (03/22/2024) Anatomical Region Laterality Modality Other Jp Schulz MD Edited Result - Final * MRI Lumbar Spine WO Contrast (02/21/2024 5:42 PM TENNIS CENTRE MANAGER) Anatomical Region Laterality Modality Spine N/A Magnetic Resonan ce 02/22/2024 7:11 AM TENNIS CENTRE MANAGER Narrative 02/22/2024 7:18 AM TENNIS CENTRE MANAGER EXAM DESCRIPTION: MRI LUMBAR SPINE WO CONTRAST [...] abdomen and pelvis 12/16/2022. FINDINGS: SEGMENTATION: 5 ucd-cxz-jknfrwu lumbar type vertebral bodies. ALIGNMENT: Mild anterolisthesis [...] dorsal epidural fat. Mild spinal canal stenosis. Swco-xdvqlxt-kuwi-right lateral recess effacement. Ubpk-bw-zamxuweg neural foraminal narrowing, vjnf-zuucyhs-hahs-right. L4-L5: Disc bulge with marginal spur formation. Superimposed central disc protrusion. Thickened ligamentum flavum and facet arthropathy. Proliferation of dorsal epidural fat. Moderate spinal canal stenosis. Lateral recess effacement on both sides with disc/marginal spur and facet arthropathy obscuring the descending L5 nerve roots. Zkvh-ni-nlqqrhlh neural foraminal narrowing. L5-S1: Disc bulge with [...] Gabo Moore D.O. AP: AP Report ID: [id number] Reading Location: [id number] Procedure Note Gabo Moore, DO - 02/22/2024 [...] abdomen and pelvis 12/16/2022. FINDINGS: SEGMENTATION: 5 qdy-ada-kqqbtgx lumbar type vertebral bodies. ALIGNMENT: Mild anterolisthesis [...] dorsal epidural fat. Mild spinal canal stenosis. Piob-uqpgbji-xiae-right lateral recess effacement. Rnik-bs-fpxluewd neural foraminal narrowing, pjav-ywvaggf-qpyl-right. L4-L5: Disc bulge with marginal spur formation. Superimposed central disc protrusion. Thickened ligamentum flavum and facet arthropathy.Proliferation of dorsal epidural fat. Moderate spinal canal stenosis. Lateral recess effacement on both sides with disc/marginal spur and facet arthropathy obscuring the descending L5 nerve roots. Mikr-ix-mvkpkagm neuralforaminal narrowing. L5-S1: Disc bulge with marginal [...] Gabo Moore D.O. AP: AP Report ID: [id number] Reading Location: [id number] us Soraya Lockwood NP IMG MRI PROCEDURES [...] history of: osteopenia Osteoporosis screening Post menopausal Resident Care Provider/Model: mascotsecret SL (S/N 35132) CLINICAL INFORMATION: Current height: 63 inches Maximum [...] Bertrand Arndt M.D. MF: JAYNE Report ID: [id number] Reading Location: [id number] Procedure Note Bertrand Arndt MD - 10/21/2022 EXAM DESCRIPTION: DEXA AXIAL SKELETON BONE DENSITY 1 OR MORE SITES REASON FOR STUDY: 67 y/o year old F with given history of: osteopenia Osteoporosis screening Post menopausal Resident Care Provider/Model: THE FASHION (S/N 13424) CLINICAL INFORMATION: Current height: 63 inches Maximum [...] Bertrand Arndt M.D. MF: JAYNE Report ID: [id number] Reading Location: [place] [address] Andreina Sandhu MD IMG DXA PROCEDURES Final Res ult * Hepatitis C antibody (06/22/2016) SCRIBED HCV ab Negative [facility] Blood specimen (specimen) Narrative [facility] - 06/22/2016 Results already scanned into media. us Historical Provider LAB MICROBIOLOGY - GENERA L ORDERABLES Final Result [facility] from Last 3 Months or Most Recently Relevant to Health [place] [address] [place] [address] MEDICARE [employer] PPO [employer] PPO Advance Directives For more information, please contact: [phone] * Full Code (Latest Code Status on File) Date Activated Date Inactivated Comments 03/23/2024 8:23 AM 03/23/2024 2:36 PM * Full Code Date Activated Date Inactivated Comments 03/23/2024 8:23 AM 03/23/2024 8:23 AM * Full Code Date Activated Date Inactivated Comments 10/02/2018 9:11 AM 10/02/2018 2:44 PM * Full Code Date Activated Date Inactivated Comments 10/02/2018 9:11 AM 10/02/2018 9:11 AM Care Teams Riveting Machine Operator Tape Control Relationship Specialty Start Date End Date Jp Schulz MD [address] DOMINIQUE MURGUIA [address] [place] [address] PCP - General Family Medicine 10/03/23 Manuelito Mendenhall NP [address] [place] [place], [place] [address] [address] Nurse Practitioner Gastroenterology 10/03/23 Soraya Lockwood NP [address] [place] [address] Nurse Practitioner Pain Management 10/27/23 [place] [address] [place] [address] Consulting Physician Neurosurgery 04/04/24
--- OUTSIDE RECORDS SUMMARY | 2024-05-10 14:53 | XMS_ITS | Encounter Summary ---
Author Organization [facility] Address [address] [place] [address] Phone Care Team Providers Care Can Cutter Name Role Phone Be Sandhu MD Primary Care Provider [phone] Jp Schulz MD Primary Care Provider Be Sandhu MD Primary Care Provider [phone] Jp Schulz MD Primary Care Provider Manuelito Mendenhall DISPLAY FABRICATION SUPERVISOR Unavailable [phone] Soraya Lockwood DISPLAY FABRICATION SUPERVISOR Unavailable [phone] Mark Garrido MD Unavailable Encounter Details Date Type Department Care Team (Late st Contact Info) Description 07/04/2017 Orders Only [facility] ProviderCelestino MD [address] [place] [address] Social History Tobacco Use Types Packs/Day Years Used Date Smoking Tobacco: Never Alcohol Use Standard Drinks/Week Comments No 0 (1 standard drink = 0.6 oz pur e alcohol) Comments Unknown Sex and Gender Information Value Date Recorded Sex Assigned at Not on file Legal Sex Female 9:22 AM HOSPICE/HOME HEALTH AIDE Gender Identity Not on file Sexual Orientation Not on file documented as of this encounter Plan of Treatment Not on file documented as of this encounter Procedures Procedure [...] documented as of this encounter Care Teams Can Cutter Relationship Specialty Start Date End Date Be Sandhu MD PCP - General 05/14/16 05/01/23 Jp Schulz MD [address] [facility] [address] DOMINIQUE Sanchez [facility] [address] [place] [address] PCP - General Family Medicine 05/02/23 06/21/23 Be Sandhu MD [address] [address] PCP - General Internal Medicine 06/22/23 10/02/23 Jp Schulz MD [address] [facility] [address] DOMINIQUE Sanchez [facility] [address] [place] [address] PCP - General Family Medicine 10/03/23 Manuelito Mendenhall NP [address] [facility] [address] [place] [address] Nurse Practitioner Gastroenterology 10/03/23 Soraya Lockwood NP [address] [place] [address] Nurse Practitioner Pain Management 10/27/23 [place] [address] [place] [address] Consulting Physician Neurosurgery 04/04/24 documented as of this encounter
--- OUTSIDE RECORDS SUMMARY | 2024-05-10 14:53 | XMS_ITS | Clinical Summary ---
Author Organization [facility] Address [address] [place] [address] Phone Care Team Providers Care Psychiatry Physician Name Role Phone Jp Schulz MD Primary [...] Immunization ( season) 2023 01/14/2021, 05/24/2020, 05/02/2020 Mammogram 06/15/2024 06/16/2023, 04/14, 04/01/2021, Additional history exists DEXA Bone Density 10/21/2024 10/21/2022 Colonoscopy 10/02/2028 10/02/2018 Colorectal Cancer Screening 10/02/2028 Respiratory Syncytial Virus (RSV) Immunization (Adult) (1 - 1-dose 75+ series) 01/07/2032 10/02/2018 TdaP Immunization Completed 04/12/2008 Zoster Immunization Completed 04/26/2022, Pneumococcal Immunization (50+ years) Completed 09/29/2022 Hepatitis B Immunization Aged Out No longer eligible based on patient's age to complete this topic Meningococcal Immunization (ACWY) Aged Out No longer eligible based on patient's age to complete this topic Rotavirus Immunization Aged Out No lo nger eligible based on patient's age to complete this topic [place] [address] MEDICARE [facility] Care Teams Psychiatry Physician Relationship Specialty Start Date End Date Jp Schulz MD [address] [facility], [address] [address] PCP - General Family Medicine 09/06/23
--- NOTE | 2024-05-10 15:37 | ECG_ITS ---
Test Date: 2024-05-10 15:54:17 Measurements Intervals [place] Rate: 81 P: 30 MS: 157 QRS: -8 QRSD: 72 T: 61 QT: 351 QTc: 410 Interpretive Statements SINUS RHYTHM NONSPECIFIC T-WAVE ABNORMALITY No previous ECG available for comparison Electronically Signed On 05-11-2024 10:38:10 CDT by Tonya Moore M.D.
[2024-05-10 16:18] LABS: Hematocrit 39.7 % (37.0-47.0); Hemoglobin 12.7 g/dL (12.0-15.0); Mean Corpuscular Hemoglobin 28.4 pg (26-34); Mean Corpuscular Volume 88.8 fl (80-100); Mean Platelet Volume 9.9 fl (7.4-10.4); Platelet Count Result 189 k/mm3 (150-375); Red Blood Count 4.47 M/mm3 (4.2-5.4); Red Cell Distribution Width 13.4 % (11.5-14.5); White Blood Count 6.9 K/mm3 (4.5-10.0)
[2024-05-10 16:24] LABS: Add Urine Microscopic? NO; Appearance Urine Clear (Clear); Bacteria Urine None Seen /hpf; Bilirubin Urine Negative (Negative); Blood Urine Non-Hemolyzed Trace (Negative); Color Urine Yellow (Yellow); Glucose Urine UA Negative (Negative); Ketones Urine Trace mg/dL (Negative); Leukocyte Esterase Ur Negative LEU/UL (Negative); Nitrate Urine Negative (Negative); Non Pathogenic Casts 0-2; Protein Urine Negative (Negative); Specific Grav Ur 1.024 (1.001-1.035); Squamous Epithelial Cell Urine None Seen /hpf (Few); WBC Urine 0-5 /hpf (0-3); pH Urine 5.5 (5.0-9.0)
[2024-05-10 16:33] LABS: Anion Gap 11 mmol/L (4-12); Blood Urea Nitrogen 16 mg/dL (7-17); Calcium 9.5 mg/dL (8.4-10.2); Carbon Dioxide 21 mmol/L (22-30); Chloride 108 mmol/L (98-107); Estimated Glomerular Filt Rate 50; Glucose 98 mg/dL (65-110); Sodium 140 mmol/L (137-145)
[2024-05-10 16:43] LABS: Prothrombin Time 13.3 Seconds (11.1-14.7)
[2024-05-10 16:44] LABS: Partial Thromboplastin Time 26.8 Seconds (22.3-36.8)
== END 2024-05-10 14:00 | disposition home or self-care (01) ==
PROVIDERS: PCP Family Medicine; Visit Provider Neurological Surgery
DX: M47.816 Spondylosis without myelopathy or radiculopathy, lumbar region (principal); E78.00 Pure hypercholesterolemia, unspecified; R94.31 Abnormal electrocardiogram [ECG] [EKG]
CPT/HCPCS: 36415; 80048; 81003; 85027; 85610; 85730; 93005

== ENCOUNTER 2024-06-27 09:40 | Outpatient (CLI) | payer OTHER, MEDICARE, SELFPAY ==
--- NOTE | ~2024-06-27 | CT_ITS ---
Noncontrast CT scan of the lumbar spine CLINICAL HISTORY: Spondylosis TECHNIQUE: Axial noncontrast imaging of the lumbar spine was performed. Sagittal and coronal reformat koki images were constructed. Dose reduction technique was used on this scan by utilizing automated ex posure control and iterative reconstruction technique. The dose-length product (DLP) was 695.85 mGy-c m. FINDINGS: There is no fracture or sublocation of the lumbar spine. Vertebral bodies maintain normal h eight and alignment. At L1-L2, there is mild degenerative disc change. No significant disc bulge or herniation. No spinal canal stenosis. There is mild bilateral neural foraminal narrowing. At L2-L3, there is mild degenerative disc narrowing with mild disc bulge. No spinal canal stenosis. T here is moderate left neural foraminal narrowing and minimal right neural foraminal narrowing. At L3-L4, there is mild disc bulge and moderate facet arthropathy. No tamir central canal stenosis. T here is moderate to advanced bilateral neural foraminal narrowing. At L4-L5, there is severe degenerative tearing. There is disc osteophyte complex and mild to moderate facet arthropathy. There is mild central canal stenosis. There is advanced bilateral neural foramina l narrowing. At L5-S1, there is advanced degenerative disc narrowing. No significant disc bulge or herniation. No spinal canal stenosis. There is advanced bilateral neural foraminal narrowing, left worse than right. Paravertebral soft tissues are unremarkable. Impression: Moderate degenerative spondylosis overall, with multilevel neural foraminal narrowing, especially fro m L3 through S1. Please see details above. Reviewed, dictated and finalized at location M. Impression: Moderate degenerative spondylosis overall, with multilevel neural foraminal carlota rowing, especially from L3 through S1. Please see details above.
--- OUTSIDE RECORDS SUMMARY | 2024-06-27 09:53 | XMS_ITS | Encounter Summary ---
Author Organization [facility] Address [address] [place] [address] Phone Care Team Providers Care Conduit Installer Name Role Phone Be Sandhu MD Primary Care Provider [phone] Jp Schulz MD Primary Care Provider Be Sandhu MD Primary Care Provider [phone] Jp Schulz MD Primary Care Provider Manuelito Mendenhall TREE CHIPPER Unavailable [phone] Soraya Lockwood TREE CHIPPER Unavailable [phone] Mark Garrido MD Unavailable Encounter Details Date Type Department Care Team (Late st Contact Info) Description 07/04/2017 Orders Only [facility] ProviderCelestino MD [address] [place] [address] Social History Tobacco Use Types Packs/Day Years Used Date Smoking Tobacco: Never Alcohol Use Standard Drinks/Week Comments No 0 (1 standard drink = 0.6 oz pur e alcohol) Comments Unknown Sex and Gender Information Value Date Recorded Sex Assigned at Not on file Legal Sex Female 9:22 AM LEGAL COLLECTOR Gender Identity Not on file Sexual Orientation [...] documented as of this encounter Care Teams Conduit Installer Relationship Specialty Start Date End Date Be Sandhu MD PCP - General 05/14/16 05/01/23 Jp Schulz MD PCP - General Family Medicine 05/02/23 06/21/23 Be Sandhu MD [address] [address] PCP - General Internal Medicine 06/22/23 10/02/23 Jp Schulz MD PCP - General Family Medicine 10/03/23 Manuelito Mendenhall NP [address] [facility] [place] [address] Nurse Practitioner Gastroenterology 10/03/23 Soraya Lockwood NP [address] [place] [address] Nurse Practitioner Pain Management 10/27/23 [place] [address] [place] [address] Consulting Physician Neurosurgery 04/04/24 documented as of this encounter
--- OUTSIDE RECORDS SUMMARY | 2024-06-27 09:54 | XMS_ITS | Continuity of Care Document ---
Author Organization Formerly [facility] Address [address] [place] [address] Phone Care Team Providers Care Poultry Helper Name Role Phone Zackary Godfrey MD [...] Diagnoses Date Provider Providers Copied on Encounter [facility], [address] [place] [address] [address], [place], [place], [id number], [place] tel:[phone] SEC Frandy RAFFI Professional No Information 3 Epifanio Raymundo. [address] [facility] [address], [place], [place], [id number], [place]. 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 [address] [facility], 6th [address], [place], [address], [place]. tel:[phone] Referring Provider: Luis Cruz OD R, [address] [facility] 6th Floor, [place], [address]. tel:[phone] Family History Family Member Type Diagnosis Age At Onset Problem Family history of Glaucoma Problem Family history of Diabetes m ellitus Problem (finding) Family history of Retin al disease Payers Payer name Insurance type Covered libertarian ID Authoriza tijoseph(s) Jennifer CI [id number] Social History Type Description Quantity Date Captured [...]
--- OUTSIDE RECORDS SUMMARY | 2024-06-27 09:54 | XMS_ITS | Referral Summary ---
Author Organization [facility] Address [address] [place] [address] Care Team Providers Care Freight Sorter Name Role Phone Jp Schulz MD Primary Care Provider Manuelito Mendenhall CONCRETE POURING SUPERVISOR Unavailable [phone] Soraya Lockwood CONCRETE POURING SUPERVISOR Unavailable [phone] Mark Garrido MD Unavailable Encounters Date Type Department Care Team Description 04/04/2024 12:15 PM BALL MACHINE OPERATOR Office Visit [facility] Primary Care at [address] [place] [address] Jp Schulz MD Lumbar radiculopathy [...] with constipation and diarrhea 04/01/2024 Results Follow-Up [facility] Gastroenterology at [address] [place] [address] Smitha Kendall MD from Last 3 Months Allergies Active Allergy [...] 10,000 mcg capsule Take by mouth Active hcysmzsrnbhh-Kg-vsi n-minerals tablet Take by mouth Active senna-docusate [...] diagnosis Patient has been noted to have detention current use of NSAIDs. She has been using Advil-PM --> for sleep, discussed to switch to benadryl only due to risk of buttermaker use of NSAIDS Discussed that NSAIDs have [...] 10/03/2023 Assessment & Plan (04/04/2024 12:17 PM BALL MACHINE OPERATOR): Wt Readings from Last 3 [...] 01/21/2023 Assessment & Plan (04/04/2024 12:17 PM BALL MACHINE OPERATOR): - up to date Colonoscopy 03/2024 Impression: - One 4 mm polyp in the ascending colon, removed with a jumbo cold forceps. Resected and retrieved. - Diverticulosis in the colon. - Internal hemorrhoids. Recommendation: - Await pathology results. - Repeat colonoscopy in 5 years for surveillance. - Continue present medications. Use mdvx-tfl-xrptiqk fiber supplements daily Assessment & Plan (10/03/2023 12:40 PM CDT): - she has colonoscopy scheduled for 03/23/2024, patient has known history of colon polyps Irritable bowel syndrome with constipation and d iarrhea 01/21/2023 Assessment & Plan (04/05/2024 4:57 AM BALL MACHINE OPERATOR): - chronic, recurring, better controlled - has started taking metamucil with improved with bowel movements - continue management History of hematuria 12/20/2022 Assessment & Plan (10/04/2023 11:17 AM CDT): - she was referred to Urology for hematuria by prior pleased to be and [facility] - had complete workup including imaging and cystoscopy with normal finding and was told she likely passed a kidney stones Assessment & Plan (12/20/2022 5:13 PM BALL MACHINE OPERATOR): CT scans without renal mass. [...] neurosurgery Assessment & Plan (04/04/2024 12:28 PM BALL MACHINE OPERATOR): - chronic condition, stable status [...] management Assessment & Plan (12/20/2022 5:13 PM BALL MACHINE OPERATOR): Pain management referral. Family members have had difficulty with opioid use and would prefer to avoid medication if able. Assessment & Plan (09/29/2022 10:03 AM CDT): PRN meds for now. Call for lumbar spine xrays, Right hip xrays and PT eval when ready. Allergic rhinitis 07/12/2017 Insomnia 07/12/2017 Assessment & Plan (04/04/2024 12:26 PM BALL MACHINE OPERATOR): - Chronic condition, controlled - Uses Melatonin PRN only - discussed risk of buttermaker NSAID use, no longer on Advil p.m. start using Benadryl in place of it Assessment & Plan (10/04/2023 11:17 AM CDT): - Chronic condition, controlled - Uses Melatonin PRN only and 2 Advil PM at night - discussed risk of buttermaker NSAID use --> asked her to discontinue [...] 06/30/2013 Assessment & Plan (04/04/2024 12:17 PM BALL MACHINE OPERATOR): - chronic condition - status: [...] 06/30/2013 Assessment & Plan (04/04/2024 12:19 PM BALL MACHINE OPERATOR): - chronic condition, persistent - [...] 206 Assessment & Plan (04/04/2024 12:19 PM BALL MACHINE OPERATOR): - chronic condition - status: [...] 04/04/2024 Assessment & Plan (12/20/2022 5:13 PM BALL MACHINE OPERATOR): Complete course of antibiotics. Colonoscopy [...] (08/04/2018): Added automatically from request for surgery [id number] Mass of left side of neck 12/12/2017 [...] 2028. Mammogram due September 2019. Follow-up the network manager for breast exam and pelvic exam [...] 2018. Mammogram yearly. She should see her network manager for breast exam and pelvic exam [...] on file Legal Sex Female 9:22 AM BALL MACHINE OPERATOR Gender Identity Not on file Sexual Orientation Not on file Last Filed Vital Signs Vital Sign Reading Time Taken Comments Blood Pressure 138/88 04/04/2024 11:53 AM BALL MACHINE OPERATOR Pulse 76 04/04/2024 11:53 AM BALL MACHINE OPERATOR Temperature 36.4 C (97.6 F) 04/04/2024 11:53 AM BALL MACHINE OPERATOR Respiratory Rate 16 04/04/2024 11:53 AM BALL MACHINE OPERATOR Oxygen Saturation 97% 04/04/2024 11:53 AM BALL MACHINE OPERATOR Inhaled Oxygen Concentration - - Weight 83 kg (182 lb 14.4 oz) 04/04/2024 11:53 A M BALL MACHINE OPERATOR Height 162.6 cm (5' 4.02 ) 04/04/2024 11:[address] Body Mass Index 31.38 04/04/2024 11:53 AM BALL MACHINE OPERATOR Plan of Treatment Not on file Procedures Procedure Name Priority Date/Time Associated Diagnosis Comments COLONOSCOPY 03/23/2024 8:32 AM BALL MACHINE OPERATOR SCREENING MAMMOGRAM BILATERAL W JOSE Schedule Routine, Read Routine (OP Routine) 06/16/2023 4:53 PM CDT Screening mammogram for breast cancer DEXA AXIAL SKELETON BONE DENSITY 1 OR MORE SITES Schedule Routine, Read Routine (OP Routine) 10/21/2022 8:11 AM CDT Osteopenia, unspecified location HEPATITIS C ANTIBODY Routine 06/22/2016 from Last 3 Months or Most Recently Relevant to Health Maintenance Results * Colonoscopy (03/23/2024 8:32 AM BALL MACHINE OPERATOR) Anatomical Region Laterality Modality Other Narrative Procedure Note Smitha Kendall MD - 03/23/2024 8:32 AM CST [facility] Patient Name: Airam Cantor Procedure Date: 03/23/2024 8:32 AM Date of : 1955 Admit Type: Outpatient Age: 69 Gender: Female Attending MD: Smitha Kendall M.D. Room: [facility] 1 Note Status: Finalized Patient Profile: This is a 69 year old female. History of benign polyps. Noted complains of chronic constipationwith bowel movements every few days. No family historyof colon cancer. Procedure: Colonoscopy Indications: High risk colon cancer surveillance: Personalhistory of colonic polyps, Last colonoscopy: 2018 Referring MD: Jp Schulz M.D. Providers: Prateek BridgesD. Impression: - One 4 mm polyp in the ascending colon, removedwith a jumbo cold forceps. Resected and retrieved. - Diverticulosis in the colon. - Internal hemorrhoids. Recommendation: - Await pathology results. - Repeat colonoscopy in 5 years for surveillance. - Continue present medications. Jizovsg-don-ujxlmzw fiber supplements daily Medicines: Monitored Anesthesia Care [...] under direct vision. The Pediatric Colonoscope PCF-H190L [id number] was introducedthrough the anus and advanced to [...] 8:32 AM Procedure Code(s): --- Professional --- 38832, Colonoscopy, flexible; with biopsy, single or multiple Diagnosis Code(s): --- Professional --- Z86.010, Personal history of colonic polyps K64.8, Other hemorrhoids D12.2, Benign neoplasm of ascending colon K57.30, Diverticulosis of large intestine without perforation orabscess without bleeding CPT copyright 2020 [employer]. All rights reserved. The codes documented in this report are preliminary and upon certified coder reviewmay be revised to meet current compliance requirements. Recognized by the [employer] for promoting quality in endoscopy us Smitha Kendall MD ENDOSCOPY PROCEDURES Final Result * Screening Mammogram Bilateral W Jose (06/16/2023 [...] history of: osteopenia Osteoporosis screening Post menopausal Housing Development Specialist/Model: [employer] (S/N 38409) CLINICAL INFORMATION: Current height: 63 inches Maximum [...] Bertrand Arndt M.D. MF: JAYNE Report ID: [id number] Reading Location: [id number] Procedure Note Bertrand Arndt MD - 10/21/2022 EXAM DESCRIPTION: DEXA AXIAL SKELETON BONE DENSITY 1 OR MORE SITES REASON FOR STUDY: 67 y/o year old F with given history of: osteopenia Osteoporosis screening Post menopausal Housing Development Specialist/Model: [employer] SL (S/N 60236) CLINICAL INFORMATION: Current height: 63 inches Maximum [...] Bertrand Arndt M.D. MF: JAYNE Report ID: [id number] Reading Location: [place] [address] Andreina Sandhu MD IMG DXA PROCEDURES Final Res ult * Hepatitis C antibody (06/22/2016) SCRIBED HCV ab Negative [facility] Blood specimen (specimen) Narrative [facility] - 06/22/2016 Results already scanned into media. Historical Provider LAB MICROBIOLOGY - GENERA L ORDERABLES Final Result [facility] from Last 3 Months or Most Recently Relevant to Health Maintenance [place] [id number] COMMERCIAL GENERIC MEDICARE [facility] PPO [id number]|2024-06-27 09:54:00|2024-06-27 09:53:00|XMS_ITS|BKG DAEMON|External Medical Summaries|[id number]|" Clinical Summary Created on: June 27, 2024 Sakshi Airam Casey : 1955 Sex: Female Author Organization [facility] Address [address] [place] [address] Care Team Providers Care Freight Sorter Name Role Phone Jp Schulz MD Primary Care Provider Manuelito Mendenhall CONCRETE POURING SUPERVISOR Unavailable [phone] Soraya Lockwood CONCRETE POURING SUPERVISOR Unavailable Mark Garrido MD Unavailable [phone] Allergies Active Allergy Reactions Criticality Noted Date Comments Acetaminophen-Codeine Other (See comments) Low 08/15 Codeine Nausea only Low Reaction: Nausea, Ketorolac Nausea only Low 01/21/2023 Tramadol Nausea only Low 01/21/2023 Medications melatonin 5 mg tablet 1 tablet (5 mg total) Active cholecalciferol, vitamin D3, (VITAMIN D3 ORAL) Take 1,000 Units by mouth Active biotin 10,000 mcg capsule Take by mouth Active mwghcdjnrfle-Yz-ync n-minerals tablet Take by mouth Active senna-docusate [...] diagnosis Patient has been noted to have buttermaker current use of NSAIDs. She has been using Advil-PM --> for sleep, discussed to switch to benadryl only due to risk of buttermaker use of NSAIDS Discussed that NSAIDs have [...] 10/03/2023 Assessment & Plan (04/04/2024 12:17 PM BALL MACHINE OPERATOR): Wt Readings from Last 3 [...] 01/21/2023 Assessment & Plan (04/04/2024 12:17 PM BALL MACHINE OPERATOR): - up to date Colonoscopy 03/2024 Impression: - One 4 mm polyp in the ascending colon, removed with a jumbo cold forceps. Resected and retrieved. - Diverticulosis in the colon. - Internal hemorrhoids. Recommendation: - Await pathology results. - Repeat colonoscopy in 5 years for surveillance. - Continue present medications. Use ghum-lev-fyyzpuu fiber supplements daily Assessment & Plan (10/03/2023 12:40 PM CDT): - she has colonoscopy scheduled for 03/23/2024, patient has known history of colon polyps Irritable bowel syndrome with constipation and d iarrhea 01/21/2023 Assessment & Plan (04/05/2024 4:57 AM BALL MACHINE OPERATOR): - chronic, recurring, better controlled - has started taking metamucil with improved with bowel movements - continue management History of hematuria 12/20/2022 Assessment & Plan (10/04/2023 11:17 AM CDT): - she was referred to Urology for hematuria by prior pleased to be and [facility] - had complete workup including imaging and cystoscopy with normal finding and was told she likely passed a kidney stones Assessment & Plan (12/20/2022 5:13 PM BALL MACHINE OPERATOR): CT scans without renal mass. [...] neurosurgery Assessment & Plan (04/04/2024 12:28 PM BALL MACHINE OPERATOR): - chronic condition, stable status [...] management Assessment & Plan (12/20/2022 5:13 PM BALL MACHINE OPERATOR): Pain management referral. Family members have had difficulty with opioid use and would prefer to avoid medication if able. Assessment & Plan (09/29/2022 10:03 AM CDT): PRN meds for now. Call for lumbar spine xrays, Right hip xrays and PT eval when ready. Allergic rhinitis 07/12/2017 Insomnia 07/12/2017 Assessment & Plan (04/04/2024 12:26 PM BALL MACHINE OPERATOR): - Chronic condition, controlled - Uses Melatonin PRN only - discussed risk of buttermaker NSAID use, no longer on Advil p.m. start using Benadryl in place of it Assessment & Plan (10/04/2023 11:17 AM CDT): - Chronic condition, controlled - Uses Melatonin PRN only and 2 Advil PM at night - discussed risk of detention NSAID use --> asked her to discontinue Advil p.m. start using Benadryl in place of it Assessment & Plan (07/25/2019 10:38 AM CDT): Melatonin and Benadryl as needed. Assessment & Plan (07/13/2018 12:47 PM CDT): Continue melatonin as needed Degeneration of intervertebral disc of lumbar re josue 06/30/2013 History of asthma 06/30/2013 Assessment & Plan (10/03/2023 12:46 PM CDT): - history of it in past when she used to be very active - has not been an issue in the past Acquired hypothyroidism 06/30/2013 Assessment & Plan (04/04/2024 12:17 PM BALL MACHINE OPERATOR): - chronic condition - status: [...] 06/30/2013 Assessment & Plan (04/04/2024 12:19 PM BALL MACHINE OPERATOR): - chronic condition, persistent - [...] 206 Assessment & Plan (04/04/2024 12:19 PM BALL MACHINE OPERATOR): - chronic condition - status: [...] 04/04/2024 Assessment & Plan (12/20/2022 5:13 PM BALL MACHINE OPERATOR): Complete course of antibiotics. Colonoscopy [...] (08/04/2018): Added automatically from request for surgery [id number] Mass of left side of neck 12/12/2017 [...] 2028. Mammogram due September 2019. Follow-up the network manager for breast exam and pelvic exam [...] 2018. Mammogram yearly. She should see her network manager for breast exam and pelvic exam is a direct. We will see her back in 1 year for full physical and fasting lab sooner if needed. Encounters Date Type Department Care Team Description 04/04/2024 12:15 PM BALL MACHINE OPERATOR Office Visit [facility] Primary Care at [address] [facility] [address] [place] [address] Jp Schulz MD Lumbar radiculopathy [...] with constipation and diarrhea 04/01/2024 Results Follow-Up [facility] Gastroenterology at [address] [place] [address] Smitha Kendall MD from Last 3 Months Immunizations Immunization Administration [...] Medical History Date Comments Hx Other Medical 1988 Rt Knee Surgery Hx Other Medical 1988 [...] on file Legal Sex Female 9:22 AM BALL MACHINE OPERATOR Gender Identity Not on file Sexual Orientation Not on file Obstetrics History Para Term AB IAB SAB Ectopic Multiple Livin g Live Births 2 2 2 Date Outcome GA Total Labor Labor/2nd/3rd Weight Sex Type Anes PTL Mariam A1 A5 Name Clin Term Term Last Filed Vital Signs Vital Sign Reading Time Taken Comments Blood Pressure 138/88 04/04/2024 11:53 AM BALL MACHINE OPERATOR Pulse 76 04/04/2024 11:53 AM BALL MACHINE OPERATOR Temperature 36.4 C (97.6 F) 04/04/2024 11:53 AM BALL MACHINE OPERATOR Respiratory Rate 16 04/04/2024 11:53 AM BALL MACHINE OPERATOR Oxygen Saturation 97% 04/04/2024 11:53 AM BALL MACHINE OPERATOR Inhaled Oxygen Concentration - - Weight 83 kg (182 lb 14.4 oz) 04/04/2024 11:53 A M BALL MACHINE OPERATOR Height 162.6 cm (5' 4.02 ) 04/04/2024 11:[address] Body Mass Index 31.38 04/04/2024 11:53 AM BALL MACHINE OPERATOR Plan of Treatment Health Maintenance Due Date Last Done Comments Hepatitis B Screening 1973 Covid-19 Vaccine (2023-2 5 season) 2023 02/18/2022, 01/14/2021, 05/24/2020, Additional [...] Procedure Name Priority Date/Time Associated Diagnosis Comments COLONOSCOPY 03/23/2024 8:32 AM BALL MACHINE OPERATOR SCREENING MAMMOGRAM BILATERAL W JOSE Schedule Routine, Read Routine (OP Routine) 06/16/2023 4:53 PM CDT Screening mammogram for breast cancer DEXA AXIAL SKELETON BONE DENSITY 1 OR MORE SITES Schedule Routine, Read Routine (OP Routine) 10/21/2022 8:11 AM CDT Osteopenia, unspecified location HEPATITIS C ANTIBODY Routine 06/22/2016 from Last 3 Months or Most Recently Relevant to Health Maintenance Results * Colonoscopy (03/23/2024 8:32 AM BALL MACHINE OPERATOR) Anatomical Region Laterality Modality Other Narrative Procedure Note Smitha Kendall MD - 03/23/2024 8:32 AM CST [facility] Patient Name: Airam Cantor Procedure Date: 03/23/2024 8:32 AM Date of : 1955 Admit Type: Outpatient Age: 69 Gender: Female Attending MD: Smitha Kendall M.D. Room: [facility] 1 Note Status: Finalized Patient [...] years for surveillance. - Continue present medications. Arjhgjw-pjz-malvdcc fiber supplements daily Medicines: Monitored Anesthesia Care [...] under direct vision. The Pediatric Colonoscope PCF-H190L [id number] was introducedthrough the anus and advanced to [...] 8:32 AM Procedure Code(s): --- Professional --- 60661, Colonoscopy, flexible; with biopsy, single or multiple Diagnosis Code(s): --- Professional --- Z86.010, Personal history of colonic polyps K64.8, Other hemorrhoids D12.2, Benign neoplasm of ascending colon K57.30, Diverticulosis of large intestine without perforation orabscess without bleeding CPT copyright 2020 [employer]. All rights reserved. The codes documented in this report are preliminary and upon certified coder reviewmay be revised to meet current compliance requirements. Recognized by the [employer] for promoting quality in endoscopy Smitha Kendall MD ENDOSCOPY PROCEDURES Final Result * Screening Mammogram Bilateral W Jose (06/16/2023 [...] history of: osteopenia Osteoporosis screening Post menopausal Housing Development Specialist/Model: [employer] SL (S/N 11906) CLINICAL INFORMATION: Current height: 63 inches Maximum [...] Bertrand Arndt M.D. MF: JAYNE Report ID: [id number] Reading Location: [place] [address] Procedure Note Bertrand Arndt MD - 10/21/2022 EXAM DESCRIPTION: DEXA AXIAL SKELETON BONE DENSITY 1 OR MORE SITES REASON FOR STUDY: 67 y/o year old F with given history of: osteopenia Osteoporosis screening Post menopausal Housing Development Specialist/Model: [employer] (S/N 27641) CLINICAL INFORMATION: Current height: 63 inches Maximum height: 64 inches Weight: 187 pounds Risk factors: Postmenopausal COMPARISON: None avai
--- OUTSIDE RECORDS SUMMARY | 2024-06-27 09:54 | XMS_ITS | Clinical Summary ---
Author Organization [facility] Address [address] [place] [address] Phone Care Team Providers Care Shoe Reconditioner Name Role Phone Jp Schulz MD Primary [...] age to complete this topic [place] [address] MEDICARE [facility] Care Teams Shoe Reconditioner Relationship Specialty Start Date End Date Jp Schulz MD [address] [facility], [address] [address] PCP - General Family Medicine 09/06/23
== END 2024-06-27 09:41 | disposition home or self-care (01) ==
PROVIDERS: PCP Family Medicine; Visit Provider Neurological Surgery
DX: M47.816 Spondylosis without myelopathy or radiculopathy, lumbar region (principal)
CPT/HCPCS: 72131

== ENCOUNTER 2024-07-07 18:00 | Observation (INO) | payer OTHER, MEDICARE, SELFPAY ==
--- NOTE | 2024-05-10 14:40 | PC.NURSE ---
Report to the Outpatient Waiting Room, entrance under the green pavilion located off [facility], at time _6:30 am on date _05/25/24 . Planned Procedure Time: __8:30 am .? Time changes happen often and if your time is changed the preop area will call you the afternoon before. - You and your visitor will be asked to self-screen and do not enter if you have any COVID symptoms. Please call surgeon if you need to reschedule. - A mask is optional within the hospital at this time. Patients may have clear liquids (water, carbonated beverages, clear teas, apple juice) until 3 hours prior to surgery ( 5:30 am) with a maximum of 20 ounces. - No food from midnight until time of surgery and no smoking, or chewing tobacco (or any form of nicotine). No chewing gum, candy or mints. Take only the following medications with a SIP of water on the morning of surgery: ___LEVOTHYROXINE DO NOT STOP ANY OF YOUR OTHER PRESCRIPTION MEDICATIONS PRIOR TO SURGERY EXCEPT THE FOLLOWING Hold all vitamins and supplements for 3 days per anesthesiologist. LAST DOSE 05/21/24 Medications to discontinue per physician ADVIL PER DR DOWD Please no make-up, nail greenlandic, hairspray, perfume, deodorant, or body powder the day of surgery.? No jewelry (including any body piercings) or valuables the day of surgery, leave them at home.? Please take a shower or bath the night before, or the morning of, surgery with an antibacterial soap.? Wear comfortable, loose fitting clothing.? Children are encouraged to wear pajamas. - Jewelry must be removed prior to entering the operating room.? Rings and piercings that are not removed may be cut off. - The hospital will not accept responsibility for valuables.? - Please leave all valuables, including medications, at home the day of surgery. If you are going home after surgery, a licensed trolley coach driver must drive you home.? - NO public transportation without another adult if you receive anesthesia. - We recommend that an adult stay with you for 24 hours following discharge. - We also recommend that you do not drive, make important decision, drink alcoholic beverages, or take any drugs that were not prescribed by your health care provider for at least 24 hours after your discharge time. Follow any additional instructions given to you from your surgeon. VERBAL AND WRITTEN instructions given to _PATIENT and asked if any additional questions and then verbalized understanding. Patient advised to call surgeon office or pre surgery nurse liaison [phone] if any additional questions.
[2024-05-10 14:57] VITALS: BMI 31.0
[2024-05-10 15:38] VITALS: BP 117/86; PULSE 85; RESP 18; TEMP 36.6; O2SAT 97
--- OUTSIDE RECORDS SUMMARY | 2024-05-25 01:31 | XMS_ITS | Encounter Summary ---
Author Organization [facility] Address [address] [place] [address] Phone Care Team Providers Care Iuss Analyst Name Role Phone Be Sandhu MD Primary Care Provider [phone] Jp Schulz MD Primary Care Provider Be Sandhu MD Primary Care Provider [phone] Jp Schulz MD Primary Care Provider Manuelito Mendenhall SNAG GRINDER Unavailable [phone] Soraya Lockwood SNAG GRINDER Unavailable [phone] Mark Garriod MD Unavailable [phone] Encounter Details Date Type Department Care Team (Late st Contact Info) Description 07/04/2017 Orders Only [facility] ProviderCelestino MD [address] [place] [address] Social History Tobacco Use Types Packs/Day Years Used Date Smoking Tobacco: Never Alcohol Use Standard Drinks/Week Comments No 0 (1 standard drink = 0.6 oz pur e alcohol) Comments Unknown Sex and Gender Information Value Date Recorded Sex Assigned at Not on file Legal Sex Female 9:22 AM GANG MINER Gender Identity Not on file Sexual Orientation [...] documented as of this encounter Care Teams Iuss Analyst Relationship Specialty Start Date End Date Be Sandhu MD PCP - General 05/14/16 05/01/23 Jp Schulz MD [address] DOMINIQUE Sanchez [facility] [address] [place] [address] PCP - General Family Medicine 05/02/23 06/21/23 Be Sandhu MD [address] [address] PCP - General Internal Medicine 06/22/23 10/02/23 Jp Schulz MD [address] DOMINIQUE Sanchez [facility] [address] [place] [address] PCP - General Family Medicine 10/03/23 Manuelito Mendenhall NP [address] [place] [address] Nurse Practitioner Gastroenterology 10/03/23 Soraya Lockwood NP [address] [place] [address] Nurse Practitioner Pain Management 10/27/23 [place] [address] [place] [address] Consulting Physician Neurosurgery 04/04/24 documented as of this encounter
--- OUTSIDE RECORDS SUMMARY | 2024-05-25 01:31 | XMS_ITS | Clinical Summary ---
Author Organization [facility] Address [address] [place] [address] Phone Care Team Providers Care Charter Pilot Name Role Phone Jp Schulz MD Primary [...] 5:15 PM CDT Height 162.6 cm (5' 4) 09/06/2023 5:15 PM CDT Body Mass Index [...] age to complete this topic [place] [address] MEDICARE [facility] Care Teams Charter Pilot Relationship Specialty Start Date End Date Jp Schulz MD 2 [facility], [address] [address] PCP - General Family Medicine 09/06/23
--- OUTSIDE RECORDS SUMMARY | 2024-05-25 01:31 | XMS_ITS | Referral Summary ---
Author Organization [facility] Address [address] [place] [address] Care Team Providers Care Veterans Contact Representative Name Role Phone Jp Schulz MD Primary Care Provider Manuelito Mendenhall TEST RIDER Unavailable [phone] Soraya Lockwood TEST RIDER Unavailable [phone] Mark Garrido MD Unavailable Encounters Date Type Department Care Team Description 04/04/2024 12:15 PM CASH CONTROLLER Office Visit [facility] [place] [address] [place] [address] Jp Schulz MD Lumbar radiculopathy [...] with constipation and diarrhea 04/01/2024 Results Follow-Up [facility] G[facility]ology at [place] [address] [place] [address] Smitha Kendall MD 03/23/2024 9:20 AM CASH CONTROLLER Anesthesia Event [facility] [address] [place] [address] Ivan Keller MD 03/23/2024 9:30 AM CASH CONTROLLER - 03/23/2024 10:00 AM CASH CONTROLLER Surgery [facility] [address] [address] Smitha Kendall MD COLON BIOPSY 03/23/2024 8:18 AM CASH CONTROLLER - 03/23/2024 10:36 AM [facility] Hospital Encounter [facility] [address] [place] [address] Smitha Kendall MD H/O colonoscopy with polypectomy; Personal history of colonic polyps; Irritable bowel syndrome with constipation and diarrhea; History of colonic polyps Discharge Disposition: Discharge to home or self care 03/22/2024 Orders Only [facility] Health Information Management [address] [place] [address] Jp Schulz MD 03/14/2024 Telephone [facility] Gastroenterology at [address] [place] [phone] Nereida Sandhu MA from Last 3 Months Allergies Active Allergy [...] 10,000 mcg capsule Take by mouth Active gqbenzxunlmx-Pu-kru n-minerals tablet Take by mouth Active senna-docusate [...] diagnosis Patient has been noted to have retirement current use of NSAIDs. She has been using Advil-PM --> for sleep, discussed to switch to benadryl only due to risk of long term care phlebotomist use of NSAIDS Discussed that NSAIDs have [...] 10/03/2023 Assessment & Plan (04/04/2024 12:17 PM CASH CONTROLLER): Wt Readings from Last 3 Encounters: 04/04/24 [...] 01/21/2023 Assessment & Plan (04/04/2024 12:17 PM CASH CONTROLLER): - up to date Colonoscopy 03/2024 Impression: - One 4 mm polyp in the ascending colon, removed with a jumbo cold forceps. Resected and retrieved. - Diverticulosis in the colon. - Internal hemorrhoids. Recommendation: - Await pathology results. - Repeat colonoscopy in 5 years for surveillance. - Continue present medications. Use nzdc-ecn-irzmjmu fiber supplements daily Assessment & Plan (10/03/2023 12:40 PM CDT): - she has colonoscopy scheduled for 03/23/2024, patient has known history of colon polyps Irritable bowel syndrome with constipation and d iarrhea 01/21/2023 Assessment & Plan (04/05/2024 4:57 AM CASH CONTROLLER): - chronic, recurring, better controlled - has started taking metamucil with improved with bowel movements - continue management History of hematuria 12/20/2022 Assessment & Plan (10/04/2023 11:17 AM CDT): - she was referred to Urology for hematuria by prior pleased to be and was referred to [facility] - had complete workup including imaging and cystoscopy with normal finding and was told she likely passed a kidney stones Assessment & Plan (12/20/2022 5:13 PM CASH CONTROLLER): CT scans without renal mass. Urological referral [...] neurosurgery Assessment & Plan (04/04/2024 12:28 PM CASH CONTROLLER): - chronic condition, stable status - managed [...] management Assessment & Plan (12/20/2022 5:13 PM CASH CONTROLLER): Pain management referral. Family members have had difficulty with opioid use and would prefer to avoid medication if able. Assessment & Plan (09/29/2022 10:03 AM CDT): PRN meds for now. Call for lumbar spine xrays, Right hip xrays and PT eval when ready. Allergic rhinitis 07/12/2017 Insomnia 07/12/2017 Assessment & Plan (04/04/2024 12:26 PM CASH CONTROLLER): - Chronic condition, controlled - Uses Melatonin PRN only - discussed risk of long term care phlebotomist NSAID use, no longer on Advil p.m. start using Benadryl in place of it Assessment & Plan (10/04/2023 11:17 AM CDT): - Chronic condition, controlled - Uses Melatonin PRN only and 2 Advil PM at night - discussed risk of long term care phlebotomist NSAID use --> asked her to discontinue [...] 06/30/2013 Assessment & Plan (04/04/2024 12:17 PM CASH CONTROLLER): - chronic condition - status: well controlled [...] 06/30/2013 Assessment & Plan (04/04/2024 12:19 PM CASH CONTROLLER): - chronic condition, persistent - not on [...] 206 Assessment & Plan (04/04/2024 12:19 PM CASH CONTROLLER): - chronic condition - status: is adequately [...] 04/04/2024 Assessment & Plan (12/20/2022 5:13 PM CASH CONTROLLER): Complete course of antibiotics. Colonoscopy ordered. High-fiber [...] (08/04/2018): Added automatically from request for surgery [id number] Mass of left side of neck 12/12/2017 [...] 2028. Mammogram due September 2019. Follow-up the office machine servicer for breast exam and pelvic exam as [...] 2018. Mammogram yearly. She should see her office machine servicer for breast exam and pelvic exam is [...] Unspecified 10/03/2023(Deferr ed: Patient Refused),11/14/2020(Deferred: Patient Refused),11/18/2017 Likeeds SARS-CoV-2 Monovalent Vaccination (12+ Yrs) PURPLE 01/14/2021,05/24/2020,05/02/2020 [...] on file Legal Sex Female 9:22 AM CASH CONTROLLER Gender Identity Not on file Sexual Orientation Not on file Last Filed Vital Signs Vital Sign Reading Time Taken Comments Blood Pressure 138/88 04/04/2024 11:53 AM CASH CONTROLLER Pulse 76 04/04/2024 11:53 AM CASH CONTROLLER Temperature 36.4 C (97.6 F) 04/04/2024 11:53 AM CASH CONTROLLER Respiratory Rate 16 04/04/2024 11:53 AM CASH CONTROLLER Oxygen Saturation 97% 04/04/2024 11:53 AM CASH CONTROLLER Inhaled Oxygen Concentration - - Weight 83 kg (182 lb 14.4 oz) 04/04/2024 11:53 A M CASH CONTROLLER Height 162.6 cm (5' 4.02) 04/04/2024 11:53 AM C Body Mass Index 31.38 04/04/2024 11:53 AM CASH CONTROLLER Plan of Treatment Not on file Procedures Procedure Name Priority Date/Time Associated Diagnosis Comments SURGICAL PATHOLOGY STAT 03/23/2024 1: 31 PM CASH CONTROLLER H/O colonoscopy with polypectomy History of colonic polyps Irritable bowel syndrome with constipation and diarrhea COLON BIOPSY 03/23/2024 9:13 AM CASH CONTROLLER H/O colonoscopy with polypectomy Personal history of colonic polyps Irritable bowel syndrome with constipation and diarrhea COLONOSCOPY 03/23/2024 8:32 AM CASH CONTROLLER SCAN - RADIOLOGY/IMAGING 03/22/2024 SCREENING MAMMOGRAM BILATERAL W JOSE Schedule Routine, [...] Results * Surgical pathology (03/23/2024 1:31 PM CASH CONTROLLER) Tissue specimen (specimen) (Polyp(s), colon/colorectal, esophageal, gastric) 03/23/2024 9:43 AM CASH CONTROLLER Narrative PATHOLOGY [facility] - 03/26/2024 4:15 PM CASH CONTROLLER EPIC results best viewed via link to PDF [facility] Department of Pathology [address] [place] [id number] Note to Patients: This report may contain [...] Final Report Patient Name: ROMEL GREENE Address: [address] [place] [address] , [place] [address] Gender: F : 1955 (Age: 69) Service: Gastro Location: [facility] Hospital #: [id number] Patient Type: [facility] Taken: 03/23/2024 Received: 03/23/2024 Accessioned: [...] container labeled ROMEL GREENE and ascending colon polyp. It is 4 fragments of pineda tissue between 1 and 2 mm. All in one cassette. Brian Strange R.N., P.A./Karen Andrade, M.D. REPORT IMAGES AND SCANNED DOCUMENTS, IF INCLUDED, ONLY VIEWABLE IN PDF VERSION OF REPORT The performance characteristics of some immunohistochemical stains, fluorescence in-situ hybridization tests and immunophenotyping by flow cytometry cited in this report (if any) were determined by the Surgical Pathology Department at [facility] as part of an ongoing quality systems technician program and in compliance with federally [...] characteristics determined by the Surgical Pathology Department [facility]. It has not been cleared or approved by the U. S. Food and Drug Administration. Note for decalcified specimens: This assay has not been validated on decalcified tissues. Results should be interpreted with caution given the possibility of false negativity on decalcified specimens Smitha Kendall MD LAB PATHOLOGY ORDERABLES F inal Result Performing Organization Address City/State/[facility] Co de Phone Number PATHOLOGY [address] [address] * Colonoscopy (03/23/2024 8:32 AM CASH CONTROLLER) Anatomical Region Laterality Modality Other Narrative Procedure Note Smitha Kendall MD - 03/23/2024 8:32 AM CST [facility] Patient Name: Romel Greene Procedure [...] surveillance: Personalhistory of colonic polyps, Last colonoscopy: 2018 Referring MD: Jp Schulz M.D. Providers: Smitha Kendall M.D. Impression: - One 4 mm polyp in the ascending colon, removedwith a jumbo cold forceps. Resected and retrieved. - Diverticulosis in the colon. - Internal hemorrhoids. Recommendation: - Await pathology results. - Repeat colonoscopy in 5 years for surveillance. - Continue present medications. Jajrgxy-aym-vikzgeo fiber supplements daily Medicines: Monitored Anesthesia Care [...] under direct vision. The Pediatric Colonoscope [id number]-[id number] was introducedthrough the anus and advanced to [...] 8:32 AM Procedure Code(s): --- Professional --- 37017, Colonoscopy, flexible; with biopsy, single or multiple Diagnosis Code(s): --- Professional --- Z86.010, Personal history of colonic polyps K64.8, Other hemorrhoids D12.2, Benign neoplasm of ascending colon K57.30, Diverticulosis of large intestine without perforation orabscess without bleeding CPT copyright 2020 [employer]. All rights reserved. The codes documented in this report are preliminary and upon sample puller reviewmay be revised to meet current compliance requirements. Recognized by the [employer] for promoting quality in endoscopy us Smitha Kendall MD ENDOSCOPY PROCEDURES Final Result * SCAN - RADIOLOGY/IMAGING (03/22/2024) Anatomical Region Laterality Modality Other Jp Schulz MD Edited Result - Final * Screening Mammogram Bilateral W Jose (06/16/2023 [...] history of: osteopenia Osteoporosis screening Post menopausal Apprise Counselor/Model: [employer] (S/N [id number]) CLINICAL INFORMATION: Current height: 63 inches Maximum [...] Bertrand Arndt M.D. MF: [email or web address] Report ID: [id number] Reading Location: [id number] Procedure Note Bertrand Arndt MD - 10/21/2022 EXAM DESCRIPTION: DEXA AXIAL SKELETON BONE DENSITY 1 OR MORE SITES REASON FOR STUDY: 67 y/o year old F with given history of: osteopenia Osteoporosis screening Post menopausal Apprise Counselor/Model: [employer] (S/N [id number]) CLINICAL INFORMATION: Current height: 63 inches Maximum [...] 6:09 PM - Electronically signed by Bertrand Arntd M.D. MF: JAYNE Report ID: [id number] Reading Location: [place] [address] us Andreina Sandhu MD IMG DXA PROCEDURES Final Res ult * Hepatitis C antibody (06/22/2016) SCRIBED HCV ab Negative [facility] Blood specimen (specimen) Narrative [facility] - 06/22/2016 Results already scanned into media. us Historical Provider LAB MICROBIOLOGY - WENCESLAO L ORDERABLES Final Result [facility] from Last 3 Months or Most Recently Relevant to Health Maintenance Insurance COMMERCIAL GENERIC [facility] PPO Advance Directives For more information, please contact: [phone] * Full Code (Latest Code Status on File) Date Activated Date Inactivated Comments 03/23/2024 8:23 AM 03/23/2024 2:36 PM * Full Code Date Activated Date Inactivated Comments 03/23/2024 8:23 AM 03/23/2024 8:23 AM * Full Code Date Activated Date Inactivated Comments 10/02/2018 9:11 AM 10/02/2018 2:44 PM * Full Code Date Activated Date Inactivated Comments 10/02/2018 9:11 AM 10/02/2018 9:11 AM Care Teams Veterans Contact Representative Relationship Specialty Start Date End Date Jp Schulz MD [address] DOMINIQUE [address] [place] [address] PCP - General Family Medicine 10/03/23 Manuelito Mendenhall NP [address] [place] [address] Nurse Practitioner Gastroenterology 10/03/23 Soraya Lockwood NP [address] [place] [address] Nurse Practitioner Pain Management 10/27/23 [place] [address] [place] [address] Consulting Physician Neurosurgery 04/04/24
--- OUTSIDE RECORDS SUMMARY | 2024-05-25 01:31 | XMS_ITS | Clinical Summary ---
Author Organization [facility] Address [address] [place] [address] Care Team Providers Care Business Account Manager Name Role Phone Jp Schulz MD Primary Care Provider Manuelito Mendenhall DIRECTOR WORKERS COMPENSATION Unavailable [phone] Soraya Lockwood DIRECTOR WORKERS COMPENSATION Unavailable [phone] Mark Garrido MD Unavailable [phone] Allergies Active Allergy Reactions Criticality Noted Date Comments Acetaminophen-Codeine Other (See comments) Low 08/15 Codeine Nausea only Low Reaction: Nausea, Ketorolac Nausea only Low 01/21/2023 Tramadol Nausea only Low 01/21/2023 Medications melatonin 5 mg tablet 1 tablet (5 mg total) Active cholecalciferol, vitamin D3, (VITAMIN D3 ORAL) Take 1,000 Units by mouth Active biotin 10,000 mcg capsule Take by mouth Active qwagcgxlxgbo-Dk-vyr n-minerals tablet Take by mouth Active senna-docusate [...] diagnosis Patient has been noted to have [facility] current use of NSAIDs. She has been using Advil-PM --> for sleep, discussed to switch to benadryl only due to risk of [facility] use of NSAIDS Discussed that NSAIDs have [...] 10/03/2023 Assessment & Plan (04/04/2024 12:17 PM PROFILE STITCHING MACHINE OPERATOR): Wt Readings from Last 3 Encounters: 04/04/24 [...] 01/21/2023 Assessment & Plan (04/04/2024 12:17 PM PROFILE STITCHING MACHINE OPERATOR): - up to date Colonoscopy 03/2024 Impression: - One 4 mm polyp in the ascending colon, removed with a jumbo cold forceps. Resected and retrieved. - Diverticulosis in the colon. - Internal hemorrhoids. Recommendation: - Await pathology results. - Repeat colonoscopy in 5 years for surveillance. - Continue present medications. Use xfwj-uza-zpbajnu fiber supplements daily Assessment & Plan (10/03/2023 12:40 PM CDT): - she has colonoscopy scheduled for 03/23/2024, patient has known history of colon polyps Irritable bowel syndrome with constipation and d iarrhea 01/21/2023 Assessment & Plan (04/05/2024 4:57 AM PROFILE STITCHING MACHINE OPERATOR): - chronic, recurring, better controlled - has started taking metamucil with improved with bowel movements - continue management History of hematuria 12/20/2022 Assessment & Plan (10/04/2023 11:17 AM CDT): - she was referred to Urology for hematuria by prior pleased to be and was referred to [facility] - had complete workup including imaging and cystoscopy with normal finding and was told she likely passed a kidney stones Assessment & Plan (12/20/2022 5:13 PM PROFILE STITCHING MACHINE OPERATOR): CT scans without renal mass. Urological referral [...] neurosurgery Assessment & Plan (04/04/2024 12:28 PM PROFILE STITCHING MACHINE OPERATOR): - chronic condition, stable status - managed [...] management Assessment & Plan (12/20/2022 5:13 PM PROFILE STITCHING MACHINE OPERATOR): Pain management referral. Family members have had difficulty with opioid use and would prefer to avoid medication if able. Assessment & Plan (09/29/2022 10:03 AM CDT): PRN meds for now. Call for lumbar spine xrays, Right hip xrays and PT eval when ready. Allergic rhinitis 07/12/2017 Insomnia 07/12/2017 Assessment & Plan (04/04/2024 12:26 PM PROFILE STITCHING MACHINE OPERATOR): - Chronic condition, controlled - Uses Melatonin PRN only - discussed risk of oil heaterman NSAID use, no longer on Advil p.m. start using Benadryl in place of it Assessment & Plan (10/04/2023 11:17 AM CDT): - Chronic condition, controlled - Uses Melatonin PRN only and 2 Advil PM at night - discussed risk of [facility] NSAID use --> asked her to discontinue [...] 06/30/2013 Assessment & Plan (04/04/2024 12:17 PM PROFILE STITCHING MACHINE OPERATOR): - chronic condition - status: well controlled [...] 06/30/2013 Assessment & Plan (04/04/2024 12:19 PM PROFILE STITCHING MACHINE OPERATOR): - chronic condition, persistent - not on [...] 206 Assessment & Plan (04/04/2024 12:19 PM PROFILE STITCHING MACHINE OPERATOR): - chronic condition - status: is adequately [...] 04/04/2024 Assessment & Plan (12/20/2022 5:13 PM PROFILE STITCHING MACHINE OPERATOR): Complete course of antibiotics. Colonoscopy ordered. High-fiber [...] (08/04/2018): Added automatically from request for surgery [id number] Mass of left side of neck 12/12/2017 [...] 2028. Mammogram due September 2019. Follow-up the photo manager for breast exam and pelvic exam as [...] 2018. Mammogram yearly. She should see her photo manager for breast exam and pelvic exam is a direct. We will see her back in 1 year for full physical and fasting lab sooner if needed. Encounters Date Type Department Care Team Description 04/04/2024 12:15 PM PROFILE STITCHING MACHINE OPERATOR Office Visit [facility] Primary [facility] at [place] [address] [place] [address] Jp Schulz MD Lumbar radiculopathy (Primary Dx); History of colonic polyps; Class 1 obesity due to excess calories with serious comorbidity and body mass index (BMI) of 31.0 to 31.9 in adult; Acquired hypothyroidism; Insomnia, unspecified type; Multiple-type hyperlipidemia; Impaired fasting glucose; Need for influenza vaccination; Need for hepatitis B screening test; Irritable bowel syndrome with constipation and diarrhea 04/01/2024 Results Follow-Up [facility] Gastroenterology at [place] [address] [place] [address] Smitha Kendall MD 03/23/2024 9:30 AM PROFILE STITCHING MACHINE OPERATOR - 03/23/2024 10:00 AM PROFILE STITCHING MACHINE OPERATOR Surgery [address] [address] Smitha Kendall MD COLON BIOPSY 03/23/2024 9:20 AM PROFILE STITCHING MACHINE OPERATOR Anesthesia Event [address] [address] Ivan Keller MD 03/23/2024 8:18 AM PROFILE STITCHING MACHINE OPERATOR - 03/23/2024 10:36 AM PROFILE STITCHING MACHINE OPERATOR Hospital Encounter [address] [address] Smitha Kendall MD H/O colonoscopy with polypectomy; Personal history of colonic polyps; Irritable bowel syndrome with constipation and diarrhea; History of colonic polyps Discharge Disposition: Discharge to home or self care 03/22/2024 Orders Only [facility] [address] [place] [address] Jp Schulz MD 03/14/2024 Telephone [facility] Gastroenterology at [address] [place] [address] Nereida Sandhu MA from Last 3 Months Immunizations Immunization Administration Dates Next Due Hep A, Adult 04/26/2022 Influenza, Quad, Adjuvantate d, Intramuscular 02/18/2022 Influenza, Quadrivalent, Spl it, Preservative Free, Intramuscular 02/09/2020,01/22/2019 Influenza, Trivalent, High D ose, Split, Preservative Free, Intramuscular 04/04/2024 Influenza, Unspecified 10/03/2023(Deferr ed: Patient Refused),11/14/2020(Deferred: Patient Refused),11/18/2017 [place] SARS-CoV-2 Monovalent Vaccination (12+ Yrs) PURPLE 01/14/2021,05/24/2020,05/02/2020 [...] on file Legal Sex Female 9:22 AM PROFILE STITCHING MACHINE OPERATOR Gender Identity Not on file Sexual Orientation Not on file Obstetrics History Para Term AB IAB SAB Ectopic Multiple Livin g Live Births 2 2 2 Date Outcome GA Total Labor Labor/2nd/3rd Weight Sex Type Anes PTL Mariam A1 A5 Name Clin Term Term Last Filed Vital Signs Vital Sign Reading Time Taken Comments Blood Pressure 138/88 04/04/2024 11:53 AM PROFILE STITCHING MACHINE OPERATOR Pulse 76 04/04/2024 11:53 AM PROFILE STITCHING MACHINE OPERATOR Temperature 36.4 C (97.6 F) 04/04/2024 11:53 AM PROFILE STITCHING MACHINE OPERATOR Respiratory Rate 16 04/04/2024 11:53 AM PROFILE STITCHING MACHINE OPERATOR Oxygen Saturation 97% 04/04/2024 11:53 AM PROFILE STITCHING MACHINE OPERATOR Inhaled Oxygen Concentration - - Weight 83 kg (182 lb 14.4 oz) 04/04/2024 11:53 A M PROFILE STITCHING MACHINE OPERATOR Height 162.6 cm (5' 4.02) 04/04/2024 11:[address] Body Mass Index 31.38 04/04/2024 11:53 AM PROFILE STITCHING MACHINE OPERATOR Plan of Treatment Health Maintenance Due Date [...] SURGICAL PATHOLOGY STAT 03/23/2024 1: 31 PM PROFILE STITCHING MACHINE OPERATOR H/O colonoscopy with polypectomy History of colonic polyps Irritable bowel syndrome with constipation and diarrhea COLON BIOPSY 03/23/2024 9:13 AM PROFILE STITCHING MACHINE OPERATOR H/O colonoscopy with polypectomy Personal history of colonic polyps Irritable bowel syndrome with constipation and diarrhea COLONOSCOPY 03/23/2024 8:32 AM PROFILE STITCHING MACHINE OPERATOR SCAN - RADIOLOGY/IMAGING 03/22/2024 SCREENING MAMMOGRAM BILATERAL [...] Results * Surgical pathology (03/23/2024 1:31 PM PROFILE STITCHING MACHINE OPERATOR) Tissue specimen (specimen) (Polyp(s), colon/colorectal, esophageal, gastric) 03/23/2024 9:43 AM PROFILE STITCHING MACHINE OPERATOR Narrative PATHOLOGY [facility] - 03/26/2024 4:15 PM PROFILE STITCHING MACHINE OPERATOR EPIC results best viewed via link to PDF [facility] Department of Pathology [address] [place], [place] [id number] Note to Patients: This report may contain [...] Final Report Patient Name: ROMEL GREENE Address: [facility] [address], [place] [address] Gender: F : 1955 (Age: 69) Service: Gastro Location: [facility] Hospital #: [id number] [facility] Taken: 03/23/2024 Received: 03/23/2024 Accessioned: 03/23/2024 [...] container labeled ROMEL THATCHER and ascending colon polyp. It is 4 [...] determined by the Surgical Pathology Department at [facility] as part of an ongoing quality liaison program and in compliance with federally mandated [...] characteristics determined by the Surgical Pathology Department [facility]. It has not been cleared or approved by the U. S. Food and Drug Administration. Note for decalcified specimens: This assay has not been validated on decalcified tissues. Results should be interpreted with caution given the possibility of false negativity on decalcified specimens us Smitha Kendall MD LAB PATHOLOGY ORDERABLES F inal Result PATHOLOGY [facility] [place]) [address] [place] [address] * Colonoscopy (03/23/2024 8:32 AM PROFILE STITCHING MACHINE OPERATOR) Anatomical Region Laterality Modality Other Narrative Procedure Note Smitha Kendall MD - 03/23/2024 8:32 AM CST [facility] Patient Name: Romel Greene Procedure Date: 03/23/2024 8:32 AM Date of : 1955 Admit Type: Outpatient Age: 69 Gender: Female Attending MD: Smitha Kendall M.D. Room: [facility] ENDOSCOPY ROOM 1 Note Status: Finalized Patient Profile: This is a 69 year old female. History of benign polyps. Noted complains of chronic constipationwith bowel movements every few days. No family historyof colon cancer. Procedure: Colonoscopy Indications: High risk colon cancer surveillance: Personalhistory of colonic polyps, Last colonoscopy: 2018 Referring MD: Jp Schulz M.D. Providers: Ahmad A. Karadaghy, M.D. Impression: - One 4 mm polyp in the ascending colon, removedwith a jumbo cold forceps. Resected and retrieved. - Diverticulosis in the colon. - Internal hemorrhoids. Recommendation: - Await pathology results. - Repeat colonoscopy in 5 years for surveillance. - Continue present medications. Vfaxdfh-ktv-dqmybmg fiber supplements daily Medicines: Monitored Anesthesia Care [...] under direct vision. The Pediatric Colonoscope [id number] was introducedthrough the anus and advanced to [...] small. Electronically signed by Smitha Kendall M.D. mSitha Kendall M.D. 03/23/2024 10:02:32 AM Number of Addenda: 0 Note Initiated On: 03/23/2024 8:32 AM Procedure Code(s): --- Professional --- 94342, Colonoscopy, flexible; with biopsy, single or multiple Diagnosis Code(s): --- Professional --- Z86.010, Personal history of colonic polyps K64.8, Other hemorrhoids D12.2, Benign neoplasm of ascending colon K57.30, Diverticulosis of large intestine without perforation orabscess without bleeding CPT copyright 2020 [employer]. All rights reserved. The codes documented in this report are preliminary and upon nuclear plant equipment operator reviewmay be revised to meet current compliance requirements. Recognized by the [employer] Society for Gastrointestinal [employer] for promoting quality in endoscopy us Smitha Kendall MD ENDOSCOPY PROCEDURES Final Result * SCAN - RADIOLOGY/IMAGING (03/22/2024) Anatomical Region Laterality Modality Other us Jp Schulz MD Edited Result - Final [...] history of: osteopenia Osteoporosis screening Post menopausal Adjunct Writing Instructor/Model: [employer] (S/N [id number]) CLINICAL INFORMATION: Current height: 63 inches Maximum [...] Bertrand Arndt M.D. MF: JAYNE Report ID: [id number] Reading Location: [place] [address] Procedure Note Bertrand Arndt MD - 10/21/2022 EXAM DESCRIPTION: DEXA AXIAL SKELETON BONE DENSITY 1 OR MORE SITES REASON FOR STUDY: 67 y/o year old F with given history of: osteopenia Osteoporosis screening Post menopausal Adjunct Writing Instructor/Model: [employer] (S/N [id number]) CLINICAL INFORMATION: Current height: 63 inches Maximum [...] Bertrand Arndt M.D. MF: JAYNE Report ID: [id number] Reading Location: [place] [address] Andreina Sandhu MD IMG DXA PROCEDURES Final Res ult * Hepatitis C antibody (06/22/2016) SCRIBED HCV ab Negative [facility] Blood specimen (specimen) Narrative [facility] - 06/22/2016 Results already scanned into media. Historical Provider LAB MICROBIOLOGY - GENERA L ORDERABLES Final Result [facility] from Last 3 Months or Most Recently Relevant to Health Maintenance Insurance [facility] [place] [id number] COMMERCIAL GENERIC MEDICARE [employer] PPO [employer] PPO Advance Directives For more information, please contact: [phone] * Full Code (Latest Code Status on File) Date Activated Date Inactivated Comments 03/23/2024 8:23 AM 03/23/2024 2:36 PM * Full Code Date Activated Date Inactivated Comments 03/23/2024 8:23 AM 03/23/2024 8:23 AM * Full Code Date Activated Date Inactivated Comments 10/02/2018 9:11 AM 10/02/2018 2:44 PM * Full Code Date Activated Date Inactivated Comments 10/02/2018 9:11 AM 10/02/2018 9:11 AM Care Teams Business Account Manager Relationship Specialty Start Date End Date Jp Schulz MD [address] [place] [address] PCP - General Family Medicine 10/03/23 Manuelito Mendenhall NP [address] [place] [address] Nurse Practitioner Gastroenterology 10/03/23 Soraya Lockwood NP [address] [place] [address] Nurse Practitioner Pain Management 10/27/23 [place] [address] [place] [address] Consulting Physician Neurosurgery 04/04/24
--- OUTSIDE RECORDS SUMMARY | 2024-05-25 01:31 | XMS_ITS | Continuity of Care Document ---
Author Organization [facility] Address [address] [place] [address] Phone Care Team Providers Care Manual Plate Filler Name Role Phone Zackary Godfrey MD Unavailable [...] Diagnoses Date Provider Providers Copied on Encounter [facility], [address] [place] [address] [address], [place], [place], [id number], [place] tel:[phone] [facility] [place] RAFFI Professional No Information [address]. [address] [facility] [address], [place], [place], [id number], [place]. 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 [facility]th [address], [place], [address], [place]. tel:[phone] Referring Provider: Luis Cruz OD R, [address] [facility] 6th [address], [place], [address]. tel:[phone] Family History Family Member Type Diagnosis Age At Onset Problem Family history of Glaucoma Problem Family history of Diabetes m ellitus Problem (finding) Family history of Retin al disease Payers Payer name Insurance type Covered democrat ID Authoriza tijoseph(s) Jennifer CI [id number] Social History Type Description Quantity Date Captured [...]
--- OUTSIDE RECORDS SUMMARY | 2024-05-25 01:31 | XMS_ITS | Encounter Summary ---
Author Organization [facility] Address [address] [place] [address] Care Team Providers Care Collator Operator Name Role Phone Jp Schulz MD Primary Care Provider Manuelito Mendenhall TOLL BOOTH OPERATOR Unavailable [phone] Soraya Lockwood TOLL BOOTH OPERATOR Unavailable Mark Garrido MD Unavailable Encounter Details Date Type Department Care Team (Late st Contact Info) Description 04/01/2024 Results Follow-Up [facility] Gastroenterology at [address] [place] [address] Smitha Kendall MD [address] [place] [address] [address] [place] [address] Social History Tobacco Use Types [...] on file Legal Sex Female 9:22 AM DRY ROLLER Gender Identity Not on file Sexual Orientation Not on file documented as of this encounter Functional Status * Audit-C Score Answer Date of Assessment Author 0 04/04/2024 12:05 PM DRY ROLLER Gaudencio Jang MA * Question Answer Date [...] on filedocumented in this encounter Care Teams Collator Operator Relationship Specialty Start Date End Date Jp Schulz MD [address] [facility] [address] [place] [address] PCP - General Family Medicine 10/03/23 Manuelito Mendenhall NP [address] [facility] [place] [address] Nurse Practitioner Gastroenterology 10/03/23 Soraya Lockwood NP [address] [place] [address] Nurse Practitioner Pain Management 10/27/23 [place] [address] [place] [address] Consulting Physician Neurosurgery 04/04/24 documented as of this encounter
--- NOTE | 2024-06-21 14:18 | PC.NURSE ---
Report to the Outpatient Waiting Room, entrance under the green pavilion located off [facility], at time __6 AM on date __07/06/24 . Planned Procedure Time: __7:30 AM .? Time changes happen often and if your time is changed the preop area will call you the afternoon before. - You and your visitor will be asked to self-screen and do not enter if you have any COVID symptoms. Please call surgeon if you need to reschedule. - A mask is optional within the hospital at this time. Patients may have clear liquids (water, carbonated beverages, clear teas, apple juice) until 3 hours prior to surgery ( 4:30 AM) with a maximum of 20 ounces. - No food from midnight until time of surgery and no smoking, or chewing tobacco (or any form of nicotine). No chewing gum, candy or mints. Take only the following medications with a SIP of water on the morning of surgery: LEVOTHYROXINE DO NOT STOP ANY OF YOUR OTHER PRESCRIPTION MEDICATIONS PRIOR TO SURGERY EXCEPT THE FOLLOWING Hold all vitamins and supplements for 3 days per anesthesiologist.LAST DOSE 07/02/24 Medications to discontinue per physician PT STATES HOLD ADVIL PM 7 DAYS PRE OP PER DR DOWD Date to take last dose 06/28/24 Please no make-up, nail italian, hairspray, perfume, deodorant, or body powder the day of surgery.? No jewelry (including any body piercings) or valuables the day of surgery, leave them at home.? Please take a shower or bath the night before, or the morning of, surgery with an antibacterial soap.? Wear comfortable, loose fitting clothing.? Children are encouraged to wear pajamas. - Jewelry must be removed prior to entering the operating room.? Rings and piercings that are not removed may be cut off. - The hospital will not accept responsibility for valuables.? - Please leave all valuables, including medications, at home the day of surgery. If you are going home after surgery, a licensed refrigerated company driver must drive you home.? - NO public transportation without another adult if you receive anesthesia. - We recommend that an adult stay with you for 24 hours following discharge. - We also recommend that you do not drive, make important decision, drink alcoholic beverages, or take any drugs that were not prescribed by your health care provider for at least 24 hours after your discharge time. For Pediatric surgeries, we recommend two adults accompany the child home. Follow any additional instructions given to you from your surgeon. Telephone instructions given to _PATIENT and asked if any additional questions and then verbalized understanding. Patient advised to call surgeon office or pre surgery nurse liaison [phone] if any additional questions.
--- NOTE | 2024-06-21 14:26 | PC.NURSE ---
STATES NO CHANGE IN HEALTH HX SINCE LAST INTERVIEW ON 05/10/24
[2024-07-06] VITALS (28 sets, daily range): BP systolic 105–146; BP diastolic 68–94; PULSE 63–99; RESP 9–18; TEMP 36.2–36.8; O2SAT 92–100
--- OUTSIDE RECORDS SUMMARY | 2024-07-06 01:46 | XMS_ITS | Clinical Summary ---
Author Organization [facility] Address [address] [place] [address] Care Team Providers Care Drawer In Plain Loom Name Role Phone pJ Schulz MD Primary Care Provider Manuelito Mendenhall INSIDE ACCOUNT REPRESENTATIVE Unavailable [phone] Soraya Lockwood INSIDE ACCOUNT REPRESENTATIVE Unavailable [phone] Mark Garrido MD Unavailable [phone] Allergies Active Allergy Reactions Criticality Noted Date Comments Acetaminophen-Codeine Other (See comments) Low 08/15 Codeine Nausea only Low Reaction: Nausea, Ketorolac Nausea only Low 01/21/2023 Tramadol Nausea only Low 01/21/2023 Medications melatonin 5 mg tablet 1 tablet (5 mg total) Active cholecalciferol, vitamin D3, (VITAMIN D3 ORAL) Take 1,000 Units by mouth Active biotin 10,000 mcg capsule Take by mouth Active nvqzsjmhhnfw-Ru-ecw n-minerals tablet Take by mouth Active senna-docusate [...] diagnosis 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 She has been using Advil-PM --> for sleep, discussed to switch to benadryl only due to risk of rodent exterminator use of NSAIDS Discussed that NSAIDs have [...] 10/03/2023 Assessment & Plan (04/04/2024 12:17 PM CERTIFIED SKI PATROLLER): Wt Readings from Last 3 Encounters: 04/04/24 [...] 01/21/2023 Assessment & Plan (04/04/2024 12:17 PM CERTIFIED SKI PATROLLER): - up to date Colonoscopy 03/2024 Impression: - One 4 mm polyp in the ascending colon, removed with a jumbo cold forceps. Resected and retrieved. - Diverticulosis in the colon. - Internal hemorrhoids. Recommendation: - Await pathology results. - Repeat colonoscopy in 5 years for surveillance. - Continue present medications. Use qvwp-egi-bgzjcgw fiber supplements daily Assessment & Plan (10/03/2023 12:40 PM CDT): - she has colonoscopy scheduled for 03/23/2024, patient has known history of colon polyps Irritable bowel syndrome with constipation and d iarrhea 01/21/2023 Assessment & Plan (04/05/2024 4:57 AM CERTIFIED SKI PATROLLER): - chronic, recurring, better controlled - has started taking metamucil with improved with bowel movements - continue management History of hematuria 12/20/2022 Assessment & Plan (10/04/2023 11:17 AM CDT): - she was referred to Urology for hematuria by prior pleased to be and was referred to [facility] - had complete workup including imaging and cystoscopy with normal finding and was told she likely passed a kidney stones Assessment & Plan (12/20/2022 5:13 PM CERTIFIED SKI PATROLLER): CT scans without renal mass. Urological referral [...] neurosurgery Assessment & Plan (04/04/2024 12:28 PM CERTIFIED SKI PATROLLER): - chronic condition, stable status - managed [...] management Assessment & Plan (12/20/2022 5:13 PM CERTIFIED SKI PATROLLER): Pain management referral. Family members have had difficulty with opioid use and would prefer to avoid medication if able. Assessment & Plan (09/29/2022 10:03 AM CDT): PRN meds for now. Call for lumbar spine xrays, Right hip xrays and PT eval when ready. Allergic rhinitis 07/12/2017 Insomnia 07/12/2017 Assessment & Plan (04/04/2024 12:26 PM CERTIFIED SKI PATROLLER): - Chronic condition, controlled - Uses Melatonin PRN only - discussed risk of group home NSAID use, no longer on Advil p.m. start using Benadryl in place of it Assessment & Plan (10/04/2023 11:17 AM CDT): - Chronic condition, controlled - Uses Melatonin PRN only and 2 Advil PM at night - discussed risk of rodent exterminator NSAID use --> asked her to discontinue [...] 06/30/2013 Assessment & Plan (04/04/2024 12:17 PM CERTIFIED SKI PATROLLER): - chronic condition - status: well controlled [...] 06/30/2013 Assessment & Plan (04/04/2024 12:19 PM CERTIFIED SKI PATROLLER): - chronic condition, persistent - not on [...] 206 Assessment & Plan (04/04/2024 12:19 PM CERTIFIED SKI PATROLLER): - chronic condition - status: is adequately [...] 04/04/2024 Assessment & Plan (12/20/2022 5:13 PM CERTIFIED SKI PATROLLER): Complete course of antibiotics. Colonoscopy ordered. High-fiber [...] (08/04/2018): Added automatically from request for surgery [id number] Mass of left side of neck 12/12/2017 [...] 2028. Mammogram due September 2019. Follow-up the fuel handler for breast exam and pelvic exam as [...] 2018. Mammogram yearly. She should see her fuel handler for breast exam and pelvic exam is [...] on file Legal Sex Female 9:22 AM CERTIFIED SKI PATROLLER Gender Identity Not on file Sexual Orientation Not on file Obstetrics History Para Term AB IAB SAB Ectopic Multiple Livin g Live Births 2 2 2 Date Outcome GA Total Labor Labor/2nd/3rd Weight Sex Type Anes PTL Mariam A1 A5 Name Clin Term Term Last Filed Vital Signs Vital Sign Reading Time Taken Comments Blood Pressure 138/88 04/04/2024 11:53 AM CERTIFIED SKI PATROLLER Pulse 76 04/04/2024 11:53 AM CERTIFIED SKI PATROLLER Temperature 36.4 C (97.6 F) 04/04/2024 11:53 AM CERTIFIED SKI PATROLLER Respiratory Rate 16 04/04/2024 11:53 AM CERTIFIED SKI PATROLLER Oxygen Saturation 97% 04/04/2024 11:53 AM CERTIFIED SKI PATROLLER Inhaled Oxygen Concentration - - Weight 83 kg (182 lb 14.4 oz) 04/04/2024 11:53 A M CERTIFIED SKI PATROLLER Height 162.6 cm (5' 4.02) 04/04/2024 11:[address] Body Mass Index 31.38 04/04/2024 11:53 AM CERTIFIED SKI PATROLLER Plan of Treatment Health Maintenance Due Date [...] Procedure Name Priority Date/Time Associated Diagnosis Comments CT LUMBAR SPINE WO CONTRAST Schedule Routine, Read Routine (OP Routine) 06/27/2024 COLONOSCOPY 03/23/2024 8:32 AM CERTIFIED SKI PATROLLER SCREENING MAMMOGRAM BILATERAL W JOSE Schedule Routine, Read Routine (OP Routine) 06/16/2023 4:53 PM CDT Screening mammogram for breast cancer DEXA AXIAL SKELETON BONE DENSITY 1 OR MORE SITES Schedule Routine, Read Routine (OP Routine) 10/21/2022 8:11 AM CDT Osteopenia, unspecified location HEPATITIS C ANTIBODY Routine 06/22/2016 from Last 3 Months or Most Recently Relevant to Health Maintenance Results * CT Lumbar Spine WO Contrast (06/27/2024) Anatomical Region Laterality Modality Spine N/A Computed Tomogra phy us Historical Provider MD NELSON CT PROCEDURES Final R esult * Colonoscopy (03/23/2024 8:32 AM CERTIFIED SKI PATROLLER) Anatomical Region Laterality Modality Other Narrative Procedure Note Smitha Kendall MD - 03/23/2024 8:32 AM CST [facility] Patient Name: Airam Cantor Procedure Date: 03/23/2024 8:32 AM Date of : 1955 Admit Type: Outpatient Age: 69 Gender: Female Attending MD: Smitha Kendall M.D. [facility] Note Status: Finalized Patient [...] years for surveillance. - Continue present medications. Qjmglyx-kjg-lfxpmsr fiber supplements daily Medicines: Monitored Anesthesia Care [...] under direct vision. The Pediatric Colonoscope PCF-H190L [id number] was introducedthrough the anus and advanced to [...] 8:32 AM Procedure Code(s): --- Professional --- 68277, Colonoscopy, flexible; with biopsy, single or multiple Diagnosis Code(s): --- Professional --- Z86.010, Personal history of colonic polyps K64.8, Other hemorrhoids D12.2, Benign neoplasm of ascending colon K57.30, Diverticulosis of large intestine without perforation orabscess without bleeding CPT copyright 2020 [employer]. All rights reserved. The codes documented in this report are preliminary and upon neon technician reviewmay be revised to meet current compliance requirements. Recognized by the [employer] for promoting quality in endoscopy Smitha Kendall MD ENDOSCOPY PROCEDURES Final Result * Screening Mammogram Bilateral W [place]jse (06/16/2023 4:53 PM CDT) Anatomical Region Laterality [...] history of: osteopenia Osteoporosis screening Post menopausal Refrigeration Lead/Model: RFIDeas Discovery SL (S/N [id number]) CLINICAL INFORMATION: Current height: 63 inches Maximum [...] Bertrand Arndt M.D. MF: JAYNE Report ID: [id number] Reading Location: [id number] Procedure Note Bertrand Arndt MD - 10/21/2022 EXAM DESCRIPTION: DEXA AXIAL SKELETON BONE DENSITY 1 OR MORE SITES REASON FOR STUDY: 67 y/o year old F with given history of: osteopenia Osteoporosis screening Post menopausal Refrigeration Lead/Model: RFIDeas Discovery SL (S/N 66619) CLINICAL INFORMATION: Current height: 63 inches Maximum [...] Bertrand Arndt M.D. MF: JAYNE Report ID: [id number] Reading Location: [place] [address] Andreina Sandhu MD IMG DXA PROCEDURES Final Res ult * Hepatitis C antibody (06/22/2016) SCRIBED HCV ab Negative [facility] Blood specimen (specimen) Narrative [facility] - 06/22/2016 Results already scanned into media. Historical Provider LAB MICROBIOLOGY - WENCESLAO L ORDERABLES Final Result [facility] from Last 3 Months or Most Recently Relevant to Health Maintenance Insurance COMMERCIAL GENERIC MEDICARE [employer] PPO [employer] PPO Advance Directives For more information, please contact: [phone] * Full Code (Latest Code Status on File) Date Activated Date Inactivated Comments 03/23/2024 8:23 AM 03/23/2024 2:36 PM * Full Code Date Activated Date Inactivated Comments 03/23/2024 8:23 AM 03/23/2024 8:23 AM * Full Code Date Activated Date Inactivated Comments 10/02/2018 9:11 AM 10/02/2018 2:44 PM * Full Code Date Activated Date Inactivated Comments 10/02/2018 9:11 AM 10/02/2018 9:11 AM Care Teams Drawer In Plain Loom Relationship Specialty Start Date End Date Jp Schulz MD PCP - General Family Medicine 10/03/23 Manuelito Mendenhall NP [address] [place] [address] Nurse Practitioner Gastroenterology 10/03/23 Soraya Lockwood NP [address] [place] [address] Nurse Practitioner Pain Management 10/27/23 [place] [address] [place] [address] Consulting Physician Neurosurgery 04/04/24
--- OUTSIDE RECORDS SUMMARY | 2024-07-06 01:46 | XMS_ITS | Encounter Summary ---
Author Organization [facility] Address [address] [place] [address] Phone Care Team Providers Care Outside Sales Inspector Name Role Phone Be Sandhu MD Primary Care Provider [phone] Jp Schulz MD Primary Care Provider Be Sandhu MD Primary Care Provider [phone] Jp Schulz MD Primary Care Provider Manuelito Mendenhall MOLYBDENUM STEAMER OPERATOR Unavailable [phone] Soraya Lockwood MOLYBDENUM STEAMER OPERATOR Unavailable [phone] Mark Garrido MD Unavailable Encounter Details Date Type Department Care Team (Late st Contact Info) Description 07/04/2017 Orders Only [facility] ProviderCelestino MD [address] [place] [address] Social History Tobacco Use Types Packs/Day Years Used Date Smoking Tobacco: Never Alcohol Use Standard Drinks/Week Comments No 0 (1 standard drink = 0.6 oz pur e alcohol) Comments Unknown Sex and Gender Information Value Date Recorded Sex Assigned at Not on file Legal Sex Female 9:22 AM HYDROGRAPHICAL TECHNICAL OFFICER Gender Identity Not on file Sexual Orientation [...] documented as of this encounter Care Teams Outside Sales Inspector Relationship Specialty Start Date End Date Be Sandhu MD PCP - General 05/14/16 05/01/23 Jp Schulz MD PCP - General Family Medicine 05/02/23 06/21/23 Be Sandhu MD [address] [address] PCP - General Internal Medicine 06/22/23 10/02/23 Jp Schulz MD PCP - General Family Medicine 10/03/23 Manuelito Mendenhall NP [address] [place] [address] Nurse Practitioner Gastroenterology 10/03/23 Soraya Lockwood NP [address] [place] [address] Nurse Practitioner Pain Management 10/27/23 [place] [address] [place] [address] Consulting Physician Neurosurgery 04/04/24 documented as of this encounter
--- OUTSIDE RECORDS SUMMARY | 2024-07-06 01:46 | XMS_ITS | Clinical Summary ---
Author Organization [facility] Address [address] [place] [address] Phone Care Team Providers Care Cement Despatch Operator Name Role Phone Jp Schulz MD [...] age to complete this topic [place] [address] MEDICARE [facility] Care Teams Cement Despatch Operator Relationship Specialty Start Date End Date Jp Schulz MD [address] [facility], [address] [address] PCP - General Family Medicine 09/06/23
--- OUTSIDE RECORDS SUMMARY | 2024-07-06 01:46 | XMS_ITS | Referral Summary ---
Author Organization [facility] Address [address] [place] [address] Care Team Providers Care Sql Analyst Name Role Phone Jp Schulz MD Primary Care Provider Manuelito Mendenhall OPERATIONS AND MAINTENANCE TECHNICIAN Unavailable [phone] Soraya Lockwood OPERATIONS AND MAINTENANCE TECHNICIAN Unavailable [phone] Mark Garrido MD Unavailable [phone] Allergies Active Allergy Reactions Criticality Noted Date Comments Acetaminophen-Codeine Other (See comments) Low 08/15 Codeine Nausea only Low Reaction: Nausea, Ketorolac Nausea only Low 01/21/2023 Tramadol Nausea only Low 01/21/2023 Medications melatonin 5 mg tablet 1 tablet (5 mg total) Active cholecalciferol, vitamin D3, (VITAMIN D3 ORAL) Take 1,000 Units by mouth Active biotin 10,000 mcg capsule Take by mouth Active paxzzpcjpoux-Ra-ozl n-minerals tablet Take by mouth Active senna-docusate [...] diagnosis 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 She has been using Advil-PM --> for sleep, discussed to switch to benadryl only due to risk of bead preparer use of NSAIDS Discussed that NSAIDs have [...] 10/03/2023 Assessment & Plan (04/04/2024 12:17 PM RIVETER HAND): Wt Readings from Last 3 Encounters: 04/04/24 [...] 01/21/2023 Assessment & Plan (04/04/2024 12:17 PM RIVETER HAND): - up to date Colonoscopy 03/2024 Impression: - One 4 mm polyp in the ascending colon, removed with a jumbo cold forceps. Resected and retrieved. - Diverticulosis in the colon. - Internal hemorrhoids. Recommendation: - Await pathology results. - Repeat colonoscopy in 5 years for surveillance. - Continue present medications. Use crax-xbp-pfemiex fiber supplements daily Assessment & Plan (10/03/2023 12:40 PM CDT): - she has colonoscopy scheduled for 03/23/2024, patient has known history of colon polyps Irritable bowel syndrome with constipation and d iarrhea 01/21/2023 Assessment & Plan (04/05/2024 4:57 AM RIVETER HAND): - chronic, recurring, better controlled - has started taking metamucil with improved with bowel movements - continue management History of hematuria 12/20/2022 Assessment & Plan (10/04/2023 11:17 AM CDT): - she was referred to Urology for hematuria by prior pleased to be and was referred to [facility] - had complete workup including imaging and cystoscopy with normal finding and was told she likely passed a kidney stones Assessment & Plan (12/20/2022 5:13 PM RIVETER HAND): CT scans without renal mass. Urological referral [...] neurosurgery Assessment & Plan (04/04/2024 12:28 PM RIVETER HAND): - chronic condition, stable status - managed [...] management Assessment & Plan (12/20/2022 5:13 PM RIVETER HAND): Pain management referral. Family members have had difficulty with opioid use and would prefer to avoid medication if able. Assessment & Plan (09/29/2022 10:03 AM CDT): PRN meds for now. Call for lumbar spine xrays, Right hip xrays and PT eval when ready. Allergic rhinitis 07/12/2017 Insomnia 07/12/2017 Assessment & Plan (04/04/2024 12:26 PM RIVETER HAND): - Chronic condition, controlled - Uses Melatonin PRN only - discussed risk of bead preparer NSAID use, no longer on Advil p.m. start using Benadryl in place of it Assessment & Plan (10/04/2023 11:17 AM CDT): - Chronic condition, controlled - Uses Melatonin PRN only and 2 Advil PM at night - discussed risk of bead preparer NSAID use --> asked her to discontinue [...] 06/30/2013 Assessment & Plan (04/04/2024 12:17 PM RIVETER HAND): - chronic condition - status: well controlled [...] 06/30/2013 Assessment & Plan (04/04/2024 12:19 PM RIVETER HAND): - chronic condition, persistent - not on [...] 206 Assessment & Plan (04/04/2024 12:19 PM RIVETER HAND): - chronic condition - status: is adequately [...] 04/04/2024 Assessment & Plan (12/20/2022 5:13 PM RIVETER HAND): Complete course of antibiotics. Colonoscopy ordered. High-fiber [...] (08/04/2018): Added automatically from request for surgery [id number] Mass of left side of neck 12/12/2017 [...] 2028. Mammogram due September 2019. Follow-up the music instructor for breast exam and pelvic exam as [...] 2018. Mammogram yearly. She should see her music instructor for breast exam and pelvic exam is [...] on file Legal Sex Female 9:22 AM RIVETER HAND Gender Identity Not on file Sexual Orientation Not on file Last Filed Vital Signs Vital Sign Reading Time Taken Comments Blood Pressure 138/88 04/04/2024 11:53 AM RIVETER HAND Pulse 76 04/04/2024 11:53 AM RIVETER HAND Temperature 36.4 C (97.6 F) 04/04/2024 11:53 AM RIVETER HAND Respiratory Rate 16 04/04/2024 11:53 AM RIVETER HAND Oxygen Saturation 97% 04/04/2024 11:53 AM RIVETER HAND Inhaled Oxygen Concentration - - Weight 83 kg (182 lb 14.4 oz) 04/04/2024 11:53 A M RIVETER HAND Height 162.6 cm (5' 4.02) 04/04/2024 11:[address] Body Mass Index 31.38 04/04/2024 11:53 AM RIVETER HAND Plan of Treatment Not on file Procedures Procedure Name Priority Date/Time Associated Diagnosis Comments CT LUMBAR SPINE WO CONTRAST Schedule Routine, Read Routine (OP Routine) 06/27/2024 COLONOSCOPY 03/23/2024 8:32 AM RIVETER HAND SCREENING MAMMOGRAM BILATERAL W JOSE Schedule Routine, [...] R esult * Colonoscopy (03/23/2024 8:32 AM RIVETER HAND) Anatomical Region Laterality Modality Other Narrative Procedure Note Smitha Kendall MD - 03/23/2024 8:32 AM CST [facility] Patient Name: Airam Cantor Procedure Date: 03/23/2024 8:32 AM Date of : 1955 Admit Type: Outpatient Age: 69 Gender: Female Attending MD: Smitha Kendall M.D. Room: [facility] ENDOSCOPY ROOM 1 Note Status: [...] years for surveillance. - Continue present medications. Wexetzg-bux-epovuvh fiber supplements daily Medicines: Monitored Anesthesia Care [...] under direct vision. The Pediatric Colonoscope PCF-H190L [id number] was introducedthrough the anus and advanced to [...] 8:32 AM Procedure Code(s): --- Professional --- 97036, Colonoscopy, flexible; with biopsy, single or multiple Diagnosis Code(s): --- Professional --- Z86.010, Personal history of colonic polyps K64.8, Other hemorrhoids D12.2, Benign neoplasm of ascending colon K57.30, Diverticulosis of large intestine without perforation orabscess without bleeding CPT copyright 2020 [employer]. All rights reserved. The codes documented in this report are preliminary and upon scouring machine operator reviewmay be revised to meet current compliance requirements. Recognized by the [employer] for promoting quality [...] for her next mammogram. Electronically signed by: Estefani Chang 06/17/2023 8:11 AM CDT EXAMINATION: SCREENING MAMMOGRAM [...] history of: osteopenia Osteoporosis screening Post menopausal Flour Distributor/Model: Eureka Discovery SL (S/N [id number]) CLINICAL INFORMATION: Current height: 63 inches Maximum [...] Bertrand Arndt M.D. MF: JAYNE Report ID: [id number] Reading Location: [id number] Procedure Note Bertrand Arndt MD - 10/21/2022 EXAM DESCRIPTION: DEXA AXIAL SKELETON BONE DENSITY 1 OR MORE SITES REASON FOR STUDY: 67 y/o year old F with given history of: osteopenia Osteoporosis screening Post menopausal Flour Distributor/Model: Eureka Discovery SL (S/N 76270) CLINICAL INFORMATION: Current height: 63 inches Maximum [...] Bertrand Arndt M.D. MF: JAYNE Report ID: [id number] Reading Location: [id number] Andreina Sandhu MD IMG DXA PROCEDURES Final Res ult * Hepatitis C antibody (06/22/2016) SCRIBED HCV ab Negative [facility] Blood specimen (specimen) Narrative [facility] - 06/22/2016 Results already scanned into media. Historical Provider LAB MICROBIOLOGY - GENERA L ORDERABLES Final Result [facility] from Last 3 Months or Most Recently Relevant to Health Maintenance Insurance COMMERCIAL GENERIC MEDICARE [employer] PPO [employer] PPO Advance Directives For more information, please contact: [phone] * Full Code (Latest Code Status on File) Date Activated Date Inactivated Comments 03/23/2024 8:23 AM 03/23/2024 2:36 PM * Full Code Date Activated Date Inactivated Comments 03/23/2024 8:23 AM 03/23/2024 8:23 AM * Full Code Date Activated Date Inactivated Comments 10/02/2018 9:11 AM 10/02/2018 2:44 PM * Full Code Date Activated Date Inactivated Comments 10/02/2018 9:11 AM 10/02/2018 9:11 AM Care Teams Sql Analyst Relationship Specialty Start Date End Date Jp Schulz MD PCP - General Family Medicine 10/03/23 Manuelito Mendenhall NP [address] [address] Nurse Practitioner Gastroenterology 10/03/23 Soraya Lockwood NP [address] [place] [address] Nurse Practitioner Pain Management 10/27/23 [place] [address] [place] [address] Consulting Physician Neurosurgery 04/04/24
--- OUTSIDE RECORDS SUMMARY | 2024-07-06 01:46 | XMS_ITS | Continuity of Care Document ---
Author Organization [facility] Address [address] [place] [address] Phone Care Team Providers Care Roofer Assistant Name Role Phone Zackary Godfrey MD Unavailable [...] Diagnoses Date Provider Providers Copied on Encounter [facility], [address] [place] [address] [address], [place], [place], [id number], [place] tel:[phone] SEC Frandy RAFFI Professional No Information 3 Epifanio Raymundo. [address] [facility] [address], [place], [place], [id number], [place]. 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 [address] [facility], [address], [place], [address], [place]. tel:[phone] Referring Provider: Luis Cruz OD R, [address] [facility] [address], [place], [address]. tel:[phone] Family History Family Member Type Diagnosis Age At Onset Problem Family history of Glaucoma Problem Family history of Diabetes m ellitus Problem (finding) Family history of Retin al disease Payers Payer name Insurance type Covered green party ID Authoriza tijoseph(s) Jennifer CI [id number] Social History Type Description Quantity Date Captured [...]
[2024-07-06] MEDS: LACTATED RINGERS 1,000 ML 30 ML IV CONT ×2 (06:30→12:33)
[2024-07-06] MEDS: SCOPOLAMINE 1 MG PATCH 1 PATCH TRANSDERM (06:46)
--- NOTE | 2024-07-06 06:52 | SUR.PREOP ---
PT STATES IV FEELS LIKE IT IS STINGY/ POKING. SITE CLEAR. OFFERED TO MOVE IV TO A DIFFERENT SITE FOR PT, PT STATESIT WILL BE OK. INFORMED PT TO LET ME KNOW IF SHE DECIDES SHE WANTS IT MOVED. PILLOW GIVEN FOR ARM SUPPORT.
--- NOTE | 2024-07-06 07:16 | P.HP_ITS ---
H&P: HPI History of Present Illness Date/Time: 07/06/24 07:16 Chief Complaint: 69 year old female who presents with radicular symptoms attributable to an L4/5 spondylolisthesis. She failed conservative management. She is now here for L4-5 posterior lumbar interbody fusion. [facility] Past Medical History Medical History (Updated 03/16/24 @ 15:17 by Mark Garrido MD) Thyroid disorder Allergies Social History Social History Smoking status: Never smoker Living arrangements: with family Spiritual care concerns: No Meds Home Medications and Allergies Home Medications ?Medication ?Instructions ?Recorded ?Confirmed ?Type cholecalciferol (vitamin D3) 25 25 mcg PO DAILY 03/16/24 07/06/24 History mcg (1,000 unit) tablet levothyroxine 88 mcg capsule 88 mcg PO DAILY 03/16/24 07/06/24 History lovastatin 20 mg tablet 20 mg PO DAILY 03/16/24 07/06/24 History ibuprofen-diphenhydramine citrate 1 cap PO HS 05/10/24 07/06/24 History 200 mg-38 mg tablet (Advil PM) melatonin 10 mg capsule 20 mg PO HS 05/10/24 07/06/24 History nvxcdeza-voa-akhx-FA-Ca carb-vit K 1 tablet PO DAILY 05/10/24 07/06/24 History 18 mg iron-400 mcg-500 mg tablet (Women's One Daily) acetaminophen 500 mg tablet 1,000 mg PO Q6H PRN pain 06/21/24 06/21/24 History (Acetaminophen Extra Strength) Allergies Allergy/AdvReac Type Severity Reaction Status Date / Time codeine Allergy Unknown Nausea and Verified 07/06/24 06:38 Vomiting Vital Signs Vital Signs - 24 hr 07/06/24 06:15 Temperature 97.1 F L Pulse Rate 86 Respiratory Rate 18 Blood Pressure 141/91 H Pulse Oximetry 97 Oxygen Delivery Room Air Exam Neuro: Other: awake alert no acute distress MAEW without focal deficit. Assessment and Plan Assessment and plan (1) Lumbar spondylosis: Code(s): M47.816 - Spondylosis without myelopathy or radiculopathy, lumbar region Status: Acute Plan 69 year old female who presents with radicular symptoms attributable to an L4/5 spondylolisthesis. She failed conservative management. She is now here for L4-5 posterior lumbar interbody fusion.
--- NOTE | 2024-07-06 07:16 | WPDHPUPDATE1 ---
History and Physical Update Update Date/Time: 07/06/24 07:16 History and Physical has been reviewed, including an updated exam of the patient. There are NO changes in the patient's condition. Risks, benefits, and alternatives have been discussed and questions answered. Patient agrees to proceed with procedure.
--- NOTE | 2024-07-06 07:26 | P.PNAN_ITS ---
Anes - Initial Pre Proc Eval Procedure: Operation Date: 07/06/24 07:30 Proposed Procedures p Stereotactic Computer-Assisted L4-5 Posterior Lumbar Interbody Fusion - Mark Garrido MD Date/Time: 07/06/24 07:26 Surgeon: Mark Garrido MD Pre Op Diagnosis: lumbar spondylosis Patient Data Age: 69 Gender: F Height: 1.63 m Weight: 82.8 kg Last Vital Signs Temp 97.1 F L 07/06/24 06:15 Pulse 86 07/06/24 06:15 Resp 18 07/06/24 06:15 BP 141/91 H 07/06/24 06:15 Pulse Ox 97 07/06/24 06:15 O2 Del Method Room Air 07/06/24 06:15 Allergies Allergy/AdvReac Type Severity Reaction Status Date / Time codeine Allergy Unknown Nausea and Verified 07/06/24 06:38 Vomiting Home Medications ?Medication ?Instructions ?Recorded ?Confirmed ?Type cholecalciferol (vitamin D3) 25 25 mcg PO DAILY 03/16/24 07/06/24 History mcg (1,000 unit) tablet levothyroxine 88 mcg capsule 88 mcg PO DAILY 03/16/24 07/06/24 History lovastatin 20 mg tablet 20 mg PO DAILY 03/16/24 07/06/24 History ibuprofen-diphenhydramine citrate 1 cap PO HS 05/10/24 07/06/24 History 200 mg-38 mg tablet (Advil PM) melatonin 10 mg capsule 20 mg PO HS 05/10/24 07/06/24 History iyjsixhd-bts-ngiu-FA-Ca carb-vit K 1 tablet PO DAILY 05/10/24 07/06/24 History 18 mg iron-400 mcg-500 mg tablet (Women's One Daily) acetaminophen 500 mg tablet 1,000 mg PO Q6H PRN pain 06/21/24 06/21/24 History (Acetaminophen Extra Strength) Laboratory Tests 07/06/24 06:25 Blood Type B Positive Antibody Screen Pending Patient hx anesthesia problems: none Family hx anesthesia problems: none Results Review: All pre-operative results and documents have been reviewed as part of the pre- operative evaluation. [facility] Past Medical History Medical History (Updated 03/16/24 @ 15:17 by Mark Garrido MD) Thyroid disorder Allergies Social History Social History Smoking status: Never smoker Living arrangements: with family Spiritual care concerns: No Anes - Eval Final PreProcedure Day of Procedure 07/06/24 07:26 Patient weight: normal Heart: regular rate and rhythm Lungs: clear to auscultation Airway: Mallampati scale class II Neurological: alert and oriented Last oral intake: >/= 8 hours ASA classification: III Emergent: no Anesthetic plan: proceed Anesthesia type and monitoring: general ETT and standard monitoring Results Review: All pre-operative results and documents have been reviewed as part of the pre- operative evaluation. Informed Consent: The patient's anesthetic plan and its attendant risks and benefits were discussed with the patient/family/POA. Questions were solicited and answers prov ided to the satisfaction of the patient/family/POA.
[2024-07-06] MEDS: ceFAZolin 2 GM/D5W 50 ML 2 GM/50 ML BAG IVPB ×3 (07:40→22:55)
[2024-07-06] MEDS: BUPIVACAINE/EPINEPHRINE 0.5% 50 ML VIAL 30 ML INFILTRATE (09:16)
[2024-07-06] MEDS: BACITRACIN OINTMENT 15 GM TUBE 1 APPLIC TOPICAL (12:08)
--- NOTE | 2024-07-06 12:20 | W.PM.PROC2 ---
Procedure Note - Detailed Date of Procedure 07/06/24 Pre-op Diagnosis lumbar spondylosis Post-op Diagnosis Same Procedure Performed L4-5 posterior lumbar interbody fusion Use of intraoperative navigation Surgeon Mark Garrido MD Anesthesia General Findings Significant lumbar spinal stenosis Description of Procedure Once the patient was intubated the patient was positioned prone onto the open Elmo table. At this point all bony prominences were padded. Lateral fluoroscopy was brought in and marked the L4 and L5 pedicles. I then prepped and draped the patient in the usual sterile fashion. Final time-out was performed indicating correct patient procedure and side. I then made a midline incision along planned areas around the L4-5 pedicles. I then exposed down to the fascia. The fascia was dissected subperiosteally off the bone. Care was taken to preserve all facet joints. I then moved out laterally around the facet joints to identify the transverse processes of L4 and L5. Once this was complete I then placed retractors brought in lateral fluoroscopy to confirm that I was at the L4 and L5 transverse processes. At this point the navigation was brought in and set up and assessed for accuracy. At this point I then began placement of pedicle screws at L4 and L5. I placed a starting point at the patient's right L4 transverse pars junction and use navigation to place a tract down. At this point this was felt with a ball-tip probe. I then brought in the navigation and again confirmed correct trajectory. The hole was then tapped and again palpated for any breaches none were identified. Screw was then placed under navigation. I repeated this process at right L5, left L4, left L5. The only issue was that right L5 where the initial trajectory seemed a lateral. [place] a lateral breach and I redirected and started a new trajectory point more medially which felt good without any breaches. At this point I brought in lateral fluoroscopy and confirmed with an AP and lateral x-ray that all screws appeared to be in proper position. The navigation was then removed. I then moved onto the decompression portion the case. At this point I used a rongeur to remove the spinous process as well as some of the lamina. At this point I then used a high-speed bur to drill through the pars bilaterally as well as through the lateral aspect of the lamina bilaterally. I then used a Alatorre curette to crack off the superior articulating process. This was saved for later use. At this point I used a upgoing curette to generate a plane around the remaining lamina. This was then removed with combination of ronbrando is and Elbaon Ramesh. At this point I was able to visualize the thecal sac as well as the inferior articular process of the remaining facet joint. This was then carefully freed with a upgoing curette. I then started initially on the patient's right side and identified the neural foramen with a Doña Ana probe. This was then widened with the Kerrison Chandler to the level of the pedicles above and below. At this point the nerve was free and I repeated the process again on the patient's left side. Both nerves were well decompressed to the level of the pedicles. At this point IA turned my attention towards the interbody cage placement. I was able to use a nerve root retractor to retract the thecal sac on the patient's right side and identify the disc space. However the disc space was very narrow and difficult to enter. I then placed disc space distractor to openings up and identify a more clear plane into the disc space I brought in lateral fluoroscopy to confirm that I was at the L4-5 disc space however upon looking into the wound at this point I noticed a significant amount of fluid serosanguineous in nature. Once I suctioned this away I was able to identify a very small pinprick area into the dura dorsally likely secondary to a sharp piece of bone that hip they dura when I expanded the disc space distractors. At this point I released the disc space distraction and placed a cottonoid over the pin prick a dural tear. I then exposed additional bone around this area and removed any sharp edges. At this point I used a 4-0 Nurolon and placed a single stitch and a muscle patch over this area I did a Valsalva and identify no further leak. I then proceeded with the disc space distraction and used a disc space finer to find the disc space. Once this was complete I used a series of Lauren to remove the remainder of the disc. The inner part of the disc was shaved of all disc material with a series of curettes and Lauren. At this point I placed 210 mm trial and took a lateral fluoroscopy to confirm proper placement. The trial was very stenotic and I moved on remove this trial and packed the disc space fully with our. I then placed the 10 mm x 22 mm 7 degree lordotic CoreLink F 3D cage into the space. At this point this was confirmed on lateral fluoroscopy. At this point I removed the ice sculptor irrigated the wound copiously assessed for any further de CSF leak and identified none. Hemostasis was obtained and then I moved on to place the heads onto the tulips onto the screw heads. And 8. I then decorticated the transverse processes bilaterally and placed bone out laterally to complete the arthrodesis. A beatriz was placed and both tulips on the right side and the left side set screws were tightened on the rostral screw and I then placed some compression of the screws before final tightening the L5 screws bilaterally. Once this was complete I took final AP and lateral x-ray which confirmed proper placement implants. At this point I then used a Doña Ana to check both neural foramina bilaterally to make sure there was no significant impingement of any nerves. At this point again hemostasis was obtained and I moved on towards placing DuraSeal over the dural repair even though there was no additional leaking I wanted to bolster the repair further. I only placed this on the right side where the speech in fact dural tear was. At this point I closed the wound in layers with 0 Vicryl 2-0 Vicryl and 3-0 Vicryl. I completed the closure with a running nonabsorbable nylon stitch in the skin. This was then dressed and the patient was then flipped over and turned over Anesthesia for extubation. Implants Orthofix an XT screw, CoreLink F 3D cage Estimated Blood Loss 150 IV Fluids 2,200 Urine Output 175 Drains Yes Complications Other complications (Pinprick dural tear) Disposition PACU [facility] Billing Surgery - Charge Forward: Surgery Billing
[2024-07-06] MEDS: fentaNYL CITRATE INJ (*CRX) 100 MCG/2 ML VIAL 25 MCG IV PUSH ×4 (12:54→13:15)
[2024-07-06] MEDS: HYDROmorphone HCL INJ (*CRX) 1 MG/ML SYR 0.5 MG IV PUSH ×3 (13:42→14:04)
[2024-07-06] MEDS: HYDROmorphone HCL INJ (*CRX) 2 MG/ML VIAL 0.5 MG IV PUSH (15:20)
--- NOTE | 2024-07-06 15:58 | P.PNNEUSUR_ITS ---
Subjective Date/time seen: 07/06/24 15:58 Interval history: The patient is in a lot of pain she notes that her pain is 6/10 even after this 0.5 mg of IV Dilaudid q.2 hours p.r.n. severe pain. I spoke with her nurse and we decided to place a MANAGER CARE MANAGEMENT 0.2 mg with every 10 minute and walk maximum 1.2 milligrams/hour lockout. Because she is lying flat she has some difficulty swallowing pills and therefore may not be able to supplement her pain control with oral pain medications tonight as she is lying flat due to a intraoperative dural tear. This was a very small pinprick dural tear and was repaired appropriately with a stitch and patch as well as DuraSeal. I suspect that this should not be an issue for her but I have of abundance of precaution and likely delay flat until tomorrow morning where she can gradually elevate her head of bed by 15?. Tomorrow we can see how she tolerates oral pain medications and see if we can wean off of the MANAGER CARE MANAGEMENT. Otherwise she remains neurologically intact without any focal neurologic deficits. Objective Data Vital Signs Vital Signs: Vital Signs - 24 hr 07/06/24 06:15 07/06/24 12:33 07/06/24 12:45 Temperature 97.1 F L 98 F Pulse Rate 86 99 89 Respiratory Rate 18 14 14 Blood Pressure 141/91 H 139/92 H 132/94 H Pulse Oximetry 97 99 99 Oxygen Delivery Room Air Simple Face Mask Simple Face Mask Oxygen Flow Rate 8 8 07/06/24 13:00 07/06/24 13:15 07/06/24 13:20 Temperature Pulse Rate 85 69 Respiratory Rate 15 12 Blood Pressure 146/93 H 137/88 Pulse Oximetry 99 99 95 Oxygen Delivery Simple Face Mask Simple Face Mask Nasal Cannula Oxygen Flow Rate 8 8 2 07/06/24 13:30 07/06/24 13:45 07/06/24 14:00 Temperature Pulse Rate 84 87 73 Respiratory Rate 14 14 13 Blood Pressure 123/71 140/92 H 130/77 Pulse Oximetry 96 96 95 Oxygen Delivery Nasal Cannula Nasal Cannula Nasal Cannula Oxygen Flow Rate 2 2 2 07/06/24 14:15 07/06/24 14:28 Temperature 97.4 F L Pulse Rate 83 63 Respiratory Rate 13 18 Blood Pressure 123/74 116/80 Pulse Oximetry 97 97 Oxygen Delivery Nasal Cannula Nasal Cannula Oxygen Flow Rate 2 2 Intake/Output Intake/Output: Intake & Output 07/03/24 07/04/24 07/05/24 07/06/24 23:59 23:59 23:59 23:59 Intake Total 2550 Output Total 605 Balance 1945 Meds/Results Medications: Active Medications Generic Name Dose Route Start Last Admin Trade Name Freq PRN Reason Stop Dose Admin Acetaminophen 1,000 mg 07/06/24 14:31 Acetaminophen 500 Mg Tablet PO Q6H PRN PAIN RATED 1-3 Hydrocodone Bitart/Acetaminophen 1 tab 07/06/24 14:31 Hydrocodone/Acetaminophen (*Crx) 5-325 Mg Tablet PO Q4H PRN Mild Pain (1-3) Hydrocodone Bitart/Acetaminophen 1 tab 07/06/24 14:31 Hydrocodone/Acetaminophen (*Crx) 10-325 Mg Tablet PO Q4H PRN Moderate Pain (4-6) Al Hydrox/Mg Hydrox/Simethicone 20 ml 07/06/24 14:31 Mag Hydrox/Al Hydrox/Simeth 30 Ml Udc PO Q4H PRN Indigestion/Heartburn Bisacodyl 10 mg 07/06/24 14:31 Bisacodyl 10 Mg Suppository RECTAL DAILY PRN Constipation Cyclobenzaprine HCl 10 mg 07/06/24 14:31 Cyclobenzaprine Hcl 10 Mg Tablet PO TID PRN Muscle Spasms Docusate Sodium 100 mg 07/06/24 21:00 Docusate Sodium 100 Mg Capsule PO Q12HR RAYMUNDO Hydromorphone HCl 0.5 mg 07/06/24 15:10 Hydromorphone Hcl Inj (*Crx) 2 Mg/Ml Vial IV PUSH Q2H PRN Pain Rated 7-10 Cefazolin Sodium 2 gm in 50 mls @ 100 mls/hr 07/06/24 16:00 Ancef 2 Gm/D5w 50 Ml IVPB Q8H RAYMUNDO Hydromorphone HCl 6 mg in 30 mls @ 0 mls/hr 07/06/24 15:41 Dilaudid 0.2 Mg/Ml Soccer Player IV CONT PRN PRN MANAGER CARE MANAGEMENT Management Protocol 0 MG/HR Levothyroxine Sodium 88 mcg 07/07/24 06:30 Levothyroxine Sodium 88 Mcg Tablet PO DAILY@0630 RAYMUNDO Lovastatin 20 mg 07/07/24 09:00 Lovastatin 20 Mg Tablet PO DAILY [facility] Melatonin 20 mg 07/06/24 21:00 Melatonin 5 Mg Tablet PO HS [facility] Multivitamins/Calcium 1 tablet 07/07/24 09:00 Therapeutic Multivitamins/Minerals Tab (*Bkc) PO DAILY [facility] Ondansetron HCl 4 mg 07/06/24 14:31 Ondansetron Inj 4 Mg/2 Ml Vial IV PUSH Q8H PRN Nausea And Vomiting Senna/Docusate Sodium 1 tab 07/06/24 14:31 Senna/Docusate Sodium Tablet PO HS PRN Constipation Vitamin D 1,000 units 07/07/24 09:00 Cholecalciferol 1,000 Units Tablet PO DAILY [facility] Labs Labs: Laboratory Results - last 24 hr 07/06/24 06:25 Blood Type B Positive Antibody Screen Negative
[2024-07-06] MEDS: SODIUM CHLORIDE 0.9% IV 1,000 ML 100 ML IV CONT (16:05)
[2024-07-06] MEDS: HYDROmorphon 0.2MG/ML PCA(*CRX 6 MG/30 ML PCA.VIAL IV CONT (16:53)
--- NOTE | 2024-07-06 17:31 | P.CONIM_ITS ---
Assessment and Plan Assessment and plan (1) Lumbar spondylosis: Code(s): M47.816 - Spondylosis without myelopathy or radiculopathy, lumbar region Status: Acute Assessment and Plan: Postoperative day 0 status post L4-L5 posterior lumbar interbody fusion complicated by pinprick dural tear. Wound care, pain control, and DVT prophylaxis deferred to primary service. (2) Spinal stenosis: Code(s): M48.00 - Spinal stenosis, site unspecified Status: Acute Assessment and Plan: Plan is as detailed above. (3) Hyperlipidemia: Code(s): E78.5 - Hyperlipidemia, unspecified Status: Acute Assessment and Plan: Resume statin once tolerating p.o.. (4) Hypothyroidism: Code(s): E03.9 - Hypothyroidism, unspecified Status: Acute Assessment and Plan: IV levothyroxine daily until tolerating p.o.. Plan Thank you for allowing us to participate in this patient's care. Please do not hesitate to contact us with any questions. HPI Date of Consult Consult date: 07/06/24 Requesting Physician: Mark Garrido MD Primary Care Provider: Jp Schulz, Consult Narrative Reason for consult: medical management Narrative: This is a 69-year-old female with history of hyperlipidemia, hypothyroidism, spinal stenosis, and lumbar spondylosis whom the hospitalist service has been consulted for help managing her medical conditions. She is status post L4-L5 posterior lumbar interbody fusion complicated by pinprick dural tear. This was performed due to ongoing back pain despite conservative outpatient treatment. Surgery was performed under general anesthesia with an estimated blood loss of 150 mL. She has had about another 250 mL of blood from her drain. She is finally starting to feel a bit more comfortable and has been able to doze off and on with manageable pain. She is having difficulty swallowing her pills as she is to remain supine for 24 hours. She denies fever, chills, sweats, chest pain, shortness of breath, nausea, and vomiting. She also denies numbness and weakness in the lower extremities. Review of Systems Review of Systems: 12 systems were reviewed and are negativ e except for as per HPI. [facility] Past Medical History Medical History (Updated 07/06/24 @ 19:53 by Nava Mcnally PA-C) Kidney stones Hyperlipidemia Hypothyroidism Allergies Surgical History Surgical History (Updated 07/06/24 @ 17:35 by Nava Mcnally PA-C) History of lumbar fusion (07/06/24) L4-L5 History of bilateral breast reduction surgery History of hysterectomy History of arthroscopy of right knee Social History Social History (Updated 07/06/24 @ 17:36 by Nava Mcnally PA-C) Social History: Surrogate medical decision maker: Malachi Crawfordcher, spouse. Code status: Full code. Smoking status: Never smoker Do You Feel Safe in your Home?: Yes Lack of Transportation: YES Lack of Food: Never True Current Housing: I Have Housing Concerned About Future Housing: No Difficulty Paying Gas/Electric Bills: No Difficulty Paying for Meds: No Currently Unemployed: No Education: Decline to Answer Difficulty w/ Childcare or Family Care: No Living arrangements: with family Spiritual care concerns: No Meds Home Medications and Allergies Home Medications ?Medication ?Instructions ?Recorded ?Confirmed ?Type cholecalciferol (vitamin D3) 25 25 mcg PO DAILY 03/16/24 07/06/24 History mcg (1,000 unit) tablet levothyroxine 88 mcg capsule 88 mcg PO DAILY 03/16/24 07/06/24 History lovastatin 20 mg tablet 20 mg PO DAILY 03/16/24 07/06/24 History ibuprofen-diphenhydramine citrate 1 cap PO HS 05/10/24 07/06/24 History 200 mg-38 mg tablet (Advil PM) melatonin 10 mg capsule 20 mg PO HS 05/10/24 07/06/24 History pwbtvvpt-wbj-dqhp-FA-Ca carb-vit K 1 tablet PO DAILY 05/10/24 07/06/24 History 18 mg iron-400 mcg-500 mg tablet (Women's One Daily) acetaminophen 500 mg tablet 1,000 mg PO Q6H PRN pain 06/21/24 06/21/24 History (Acetaminophen Extra Strength) cyclobenzaprine 5 mg tablet 5 mg PO HS #30 tabs 07/06/24 Rx oxycodone 5 mg tablet 5 mg PO Q4H PRN pain #32 tabs 07/06/24 Rx sennosides 8.6 mg tablet (senna) 8.6 mg PO BID PRN constipation #30 07/06/24 Rx tabs Allergies Allergy/AdvReac Type Severity Reaction Status Date / Time codeine Allergy Unknown Nausea and Verified 07/06/24 06:38 Vomiting Vital Signs Vital Signs - 24 hr 07/06/24 06:15 07/06/24 12:33 07/06/24 12:45 Temperature 97.1 F L 98 F Pulse Rate 86 99 89 Respiratory Rate 18 14 14 Blood Pressure 141/91 H 139/92 H 132/94 H Pulse Oximetry 97 99 99 Oxygen Delivery Room Air Simple Face Mask Simple Face Mask Oxygen Flow Rate 8 8 07/06/24 13:00 07/06/24 13:15 07/06/24 13:20 Temperature Pulse Rate 85 69 Respiratory Rate 15 12 Blood Pressure 146/93 H 137/88 Pulse Oximetry 99 99 95 Oxygen Delivery Simple Face Mask Simple Face Mask Nasal Cannula Oxygen Flow Rate 8 8 2 07/06/24 13:30 07/06/24 13:45 07/06/24 14:00 Temperature Pulse Rate 84 87 73 Respiratory Rate 14 14 13 Blood Pressure 123/71 140/92 H 130/77 Pulse Oximetry 96 96 95 Oxygen Delivery Nasal Cannula Nasal Cannula Nasal Cannula Oxygen Flow Rate 2 2 2 07/06/24 14:15 07/06/24 14:28 07/06/24 14:45 Temperature 97.4 F L 97.1 F L Pulse Rate 83 63 73 Respiratory Rate 13 18 16 Blood Pressure 123/74 116/80 127/91 H Pulse Oximetry 97 97 100 Oxygen Delivery Nasal Cannula Nasal Cannula Oxygen Flow Rate 2 2 07/06/24 15:00 07/06/24 15:30 07/06/24 16:30 Temperature 97.5 F L 97.4 F L 97.3 F L Pulse Rate 70 75 88 Respiratory Rate 16 16 16 Blood Pressure 132/85 126/83 130/77 Pulse Oximetry 100 99 97 Oxygen Delivery Oxygen Flow Rate 07/06/24 16:53 Temperature Pulse Rate Respiratory Rate 12 Blood Pressure Pulse Oximetry 94 Oxygen Delivery Oxygen Flow Rate Exam Narrative: General: HEENT: Normocephalic, atraumatic. PERRL, EOMI. Sclera anicteric. Oral mucosa moist. Oropharynx clear. Neck: Supple. Respiratory: Lungs are clear to auscultation bilaterally. Cardiovascular: Regular rate and rhythm with S1-S2. No murmur, rub, or gallop. Gastrointestinal: Abdomen is soft, nontender, and nondistended with positive bowel sounds. No organomegaly. Skin: Warm and dry. No rash or lesions on limited exam. Extremities: No cyanosis, clubbing, or edema. Radial and pedal pulses intact. Neurological: Alert. Cranial nerves 2-12 are grossly intact. Speech is clear. No facial asymmetry. No gross focal deficits to casual conversation. Psychiatric: Pleasant and cooperative with normal mood and affect. Judgment and insight intact. Hospitalist MIPS Advance Care Plan I have confirmed that the patient's Advanced Care Plan is present, code status is documented, or surrogate decision maker is listed in patient medical record.: Yes Medication Reconciliation I have utilized all available resources to obtain, update and review the patients current medications (includes all prescriptions, OTC, herbals, c annabis, and nutritional supplements).: Yes
--- NOTE | 2024-07-06 18:19 | ADMGEN ---
This patient, Airam Cantor, was admitted to [facility] Surg Room 320-01. Patient/family oriented to hospital policies and general routines including ID bracelet, bed and alarms, visiting hours, pain management, procedures, bathroom and other care routines, personal items, smoking policy, room service/diet, and visiting hours. Information on how to activate the Rapid Response Team has been discussed. Patient/Family are encouraged to report perceived risks to care and to ask questions if they do not understand what they are told or what they should do. Pt arrived to floor pain 01/23. Pt still showing in surgery per chart. Dilaudid given IVP; overrode and witnessed by Kirstin Hernandez RN
[2024-07-06 22:51] LABS: Hematocrit 35.1 % (37.0-47.0); Hemoglobin 10.9 g/dL (12.0-15.0)
[2024-07-07] VITALS (15 sets, daily range): BP systolic 97–136; BP diastolic 63–86; PULSE 79–102; RESP 13–19; TEMP 36.3–37.1; O2SAT 81–100
--- NOTE | ~2024-07-07 | XR_ITS ---
INTRAOPERATIVE FLUOROSCOPY: CLINICAL HISTORY: 69 years old Female; L4/5 POSTERIOR LUMBAR FUSION PROCEDURE COMMENTS: Limited intraoperative fluoroscopy of the lumbar spine was performed. CUMULATIVE DOSE: 22 mGy FLUOROSCOPY TIME: 20 seconds FINDINGS/IMPRESSION: Please refer to operative note for further details. Reviewed, dictated and finalized at location A.
--- NOTE | ~2024-07-07 | CT_ITS ---
EXAMINATION: CT cervical spine wo con DATE: 07/07/2024 09:36 INDICATION: Left-sided weakness TECHNIQUE: Computed tomography (CT) of the cervical spine was performed without intravenous contrast. Automated exposure control and iterative reconstruction technique were employed. The dose-length pro duct was 553.92 mGy-cm. COMPARISON: None FINDINGS: 15 degrees cervicothoracic dextrocurvature. Sagittal alignment is normal. Vertebral body heights are normal. No fracture. Moderate disc height loss with degenerative endplate changes and severe uncovert ebral osteoarthritis at C6-C7. Mild disc height loss at remaining levels from C3-C4 through C7-T1. Sm all posterior disc osteophyte complexes resulting in mild central canal stenosis at C5-C6 and C6-C7. There is additional moderate to severe uncovertebral osteoarthritis at C5-C6 and mild to moderate unc overtebral osteoarthritis throughout the remainder of the cervical spine. There is severe multilevel cervical facet osteoarthritis with fusion across the left C3-C4 and right C4-C5 facet joints. There i s multilevel cervical neural foraminal stenosis, severe on the right at C5-C6 and mild and moderate a t many of the remaining cervical neural foramina. Cervical soft tissues are unremarkable. Dependent a telectasis/scarring in the right upper lobe. IMPRESSION: 1. Moderate to severe cervical spondylosis most notable for severe neural foraminal stenosis on the r ight at C5-C6. Reviewed, dictated and finalized at location A. IMPRESSION: 1. Moderate to severe cervical spondylosis most notable for severe neural reema inal stenosis on the right at C5-C6.
--- NOTE | ~2024-07-07 | CT_ITS ---
EXAMINATION: CT brain wo con DATE: 07/07/2024 09:36 INDICATION: Left-sided weakness TECHNIQUE: Computed tomography (CT) of the head was performed without intravenous contrast. Sagittal and coronal reconstructions were performed. The mA was adjusted according to patient size. Iterative reconstruction technique was employed. The dose-length product was 605.33 mGy-cm. COMPARISON: None FINDINGS: No acute intracranial hemorrhage, acute infarction or abnormal extra axial fluid collection. There is mild scattered white matter hypoattenuation consistent with chronic small vessel ischemic disease. Ventricles are normal and symmetric. No mass/mass effect. Mild mucosal thickening in the paranasal si nuses. The orbitswas prepped and mastoid air cells are normal. IMPRESSION: 1. Mild scattered white matter hypoattenuation consistent with chronic small vessel ischemic disease. No other acute intracranial process. Reviewed, dictated and finalized at location A. IMPRESSION: 1. Mild scattered white matter hypoattenuation consistent with chronic small ve ssel ischemic disease. No other acute intracranial process.
[2024-07-07] MEDS: SODIUM CHLORIDE 0.9% IV 1,000 ML 100 ML IV CONT ×2 (04:52→14:50)
[2024-07-07 05:51] LABS: Basophils Percent Auto 0.1 % (0.2-1.2); Hematocrit 34.2 % (37.0-47.0); Hemoglobin 10.7 g/dL (12.0-15.0); Immature Granulocyte Absolute 0.04 K/mm3 (0.00-0.031); Immature Granulocyte Percent A 0.4 % (0-0.5); Lymphocytes Absolute Auto 1.43 K/mm3 (0.9-3.2); Lymphocytes Percent Auto 15.7 % (18.3-44.2); Mean Corpuscular HGB Conc 31.3 g/dl (32-36); Mean Corpuscular Hemoglobin 28.2 pg (26-34); Mean Corpuscular Volume 90.2 fl (80-100); Mean Platelet Volume 9.7 fl (7.4-10.4); Monocytes Absolute Auto 0.7 K/mm3 (0.1-0.6); Monocytes Percent Auto 7.3 % (2.6-8.5); Neutrophils Absolute Auto 6.9 K/mm3 (1.3-6.7); Neutrophils Percent Auto 76.5 % (45.5-73.1); Platelet Count Result 179 k/mm3 (150-375); Red Blood Count 3.79 M/mm3 (4.2-5.4); Red Cell Distribution Width 13.4 % (11.5-14.5); White Blood Count 9.1 K/mm3 (4.5-10.0)
[2024-07-07 06:00] LABS: Alanine Aminotransferase 30 U/L (6-35); Albumin Level 3.6 g/dL (3.5-5.1); Alkaline Phosphatase 60 U/L (38-126); Anion Gap 7 mmol/L (4-12); Aspartate Amino Transferase 41 U/L (14-36); Bilirubin,Total 0.3 mg/dL (0.2-1.3); Blood Urea Nitrogen 14 mg/dL (7-17); Calcium 8.7 mg/dL (8.4-10.2); Carbon Dioxide 26 mmol/L (22-30); Chloride 108 mmol/L (98-107); Estimated CRCL calculation 47 ml/min; Estimated Glomerular Filt Rate 51; Glucose 118 mg/dL (65-110); Potassium 4.5 mmol/L (3.4-5.0); Sodium 141 mmol/L (137-145)
[2024-07-07 06:33] LABS: Thyroid Stimulating Hormone Reflex 0.513 uIU/mL (0.465-4.68)
[2024-07-07] MEDS: ceFAZolin 2 GM/D5W 50 ML 2 GM/50 ML BAG IVPB (08:44)
--- NOTE | 2024-07-07 08:45 | PCPTNOTE ---
According to nursing patient just sat patient up to 15 degrees HOB. Nursing wants to wait until patient is at least 45 degrees HOB before assessing. Informed patient we will wait until after lunch.
--- NOTE | 2024-07-07 09:19 | P.CONIM_ITS ---
Assessment and Plan Assessment and plan (1) Lumbar spondylosis: Code(s): M47.816 - Spondylosis without myelopathy or radiculopathy, lumbar region Status: Acute Assessment and Plan: Postoperative day 0 status post L4-L5 posterior lumbar interbody fusion complicated by pinprick dural tear. Wound care, pain control, and DVT prophylaxis deferred to primary service. Lconcern for stroke- CT head negatve pt doensot have acute stroke symptom pain is betetr controlled now with po and PRESSER ALL AROUND will increase IV fluids slightly as BP is a bit low-most likely due to pain medication monitor close (2) Spinal stenosis: Code(s): M48.00 - Spinal stenosis, site unspecified Status: Acute Assessment and Plan: Plan is as detailed above. L (3) Hyperlipidemia: Code(s): E78.5 - Hyperlipidemia, unspecified Status: Acute Assessment and Plan: Resume statin once tolerating p.o.. L (4) Hypothyroidism: Code(s): E03.9 - Hypothyroidism, unspecified Status: Acute Assessment and Plan: IV levothyroxine daily until tolerating p.o.. L Plan Thank you for allowing us to participate in this patient's care. Please do not hesitate to contact us with any questions. HPI Date of Consult Consult date: 07/07/24 Requesting Physician: Makr Garrido MD Primary Care Provider: Jp SchulzMD Consult Narrative Reason for consult: medical mngmnt Narrative: 69-year-old female with PMH/of hyperlipidemia, hypothyroidism, spinal stenosis, and lumbar spondylosis whom the hospitalist service has been consulted for help managing her medical conditions. She is s/p L4-L5 posterior lumbar interbody fusion complicated by pinprick dural tear. Pt failed outpt conservative measures and elected to proceed with surgery. She had general anesthesia, EBL 150 mL. She has had about another 250 mL of blood from her drain. Her pain is somewhat better and she is able to rest. She is having difficulty swallowing her pills as she is to remain supine for 24 hours. She denies fever, chills, sweats, chest pain, shortness of breath, nausea, and vomiting. She also denies numbness and weakness in the lower extremities. Review of Systems 2 Review of Systems: 12 systems were reviewed and are negativ e except for as per HPI. [facility] Past Medical History Medical History (Updated 07/06/24 @ 19:53 by Nava Mcnally PA-C) Kidney stones Hyperlipidemia Hypothyroidism Allergies Surgical History Surgical History (Updated 07/06/24 @ 17:35 by Nava Mcnally PA-C) History of lumbar fusion (07/06/24) L4-L5 History of bilateral breast reduction surgery History of hysterectomy History of arthroscopy of right knee Social History Social History (Updated 07/06/24 @ 17:36 by Nava Mcnally PA-C) Social History: Surrogate medical decision maker: Malachi Cantor, spouse. Code status: Full code. Smoking status: Never smoker Do You Feel Safe in your Home?: Yes Lack of Transportation: YES Lack of Food: Never True Current Housing: I Have Housing Concerned About Future Housing: No Difficulty Paying Gas/Electric Bills: No Difficulty Paying for Meds: No Currently Unemployed: No Education: Decline to Answer Difficulty w/ Childcare or Family Care: No Living arrangements: with family Spiritual care concerns: No Meds Home Medications and Allergies Home Medications ?Medication ?Instructions ?Recorded ?Confirmed ?Type cholecalciferol (vitamin D3) 25 25 mcg PO DAILY 03/16/24 07/06/24 History mcg (1,000 unit) tablet levothyroxine 88 mcg capsule 88 mcg PO DAILY 03/16/24 07/06/24 History lovastatin 20 mg tablet 20 mg PO DAILY 03/16/24 07/06/24 History ibuprofen-diphenhydramine citrate 1 cap PO HS 05/10/24 07/06/24 History 200 mg-38 mg tablet (Advil PM) melatonin 10 mg capsule 20 mg PO HS 05/10/24 07/06/24 History xkddfkwt-vdu-pvbw-FA-Ca carb-vit K 1 tablet PO DAILY 05/10/24 07/06/24 History 18 mg iron-400 mcg-500 mg tablet (Women's One Daily) acetaminophen 500 mg tablet 1,000 mg PO Q6H PRN pain 06/21/24 06/21/24 History (Acetaminophen Extra Strength) cyclobenzaprine 5 mg tablet 5 mg PO HS #30 tabs 07/06/24 Rx oxycodone 5 mg tablet 5 mg PO Q4H PRN pain #32 tabs 05/23/25 Rx sennosides 8.6 mg tablet (senna) 8.6 mg PO BID PRN constipation #30 07/06/24 Rx tabs Allergies Allergy/AdvReac Type Severity Reaction Status Date / Time codeine Allergy Unknown Nausea and Verified 07/06/24 06:38 Vomiting Vital Signs Vital Signs - 24 hr 07/06/24 12:33 07/06/24 12:45 07/06/24 13:00 Temperature 98 F Pulse Rate 99 89 85 Respiratory Rate 14 14 15 Blood Pressure 139/92 H 132/94 H 146/93 H Pulse Oximetry 99 99 99 Oxygen Delivery Simple Face Mask Simple Face Mask Simple Face Mask Oxygen Flow Rate 8 8 8 07/06/24 13:15 07/06/24 13:20 07/06/24 13:30 Temperature Pulse Rate 69 84 Respiratory Rate 12 14 Blood Pressure 137/88 123/71 Pulse Oximetry 99 95 96 Oxygen Delivery Simple Face Mask Nasal Cannula Nasal Cannula Oxygen Flow Rate 8 2 2 07/06/24 13:45 07/06/24 14:00 07/06/24 14:15 Temperature Pulse Rate 87 73 83 Respiratory Rate 14 13 13 Blood Pressure 140/92 H 130/77 123/74 Pulse Oximetry 96 95 97 Oxygen Delivery Nasal Cannula Nasal Cannula Nasal Cannula Oxygen Flow Rate 2 2 2 07/06/24 14:28 07/06/24 14:31 07/06/24 14:45 Temperature 97.4 F L 97.1 F L Pulse Rate 63 73 Respiratory Rate 18 16 Blood Pressure 116/80 127/91 H Pulse Oximetry 97 94 100 Oxygen Delivery Nasal Cannula Nasal Cannula Oxygen Flow Rate 2 2 07/06/24 15:00 07/06/24 15:30 07/06/24 16:30 Temperature 97.5 F L 97.4 F L 97.3 F L Pulse Rate 70 75 88 Respiratory Rate 16 16 16 Blood Pressure 132/85 126/83 130/77 Pulse Oximetry 100 99 97 Oxygen Delivery Oxygen Flow Rate 07/06/24 16:53 07/06/24 17:50 07/06/24 17:53 Temperature 97.2 F L Pulse Rate 84 Respiratory Rate 12 18 18 Blood Pressure 134/68 Pulse Oximetry 94 96 92 Oxygen Delivery Oxygen Flow Rate 07/06/24 18:10 07/06/24 18:47 07/06/24 18:55 Temperature 97.4 F L Pulse Rate 88 Respiratory Rate 16 18 Blood Pressure 105/78 Pulse Oximetry 97 98 97 Oxygen Delivery Nasal Cannula Oxygen Flow Rate 2 07/06/24 19:53 07/06/24 19:53 07/06/24 20:00 Temperature 97.4 F L Pulse Rate 89 Respiratory Rate 10 L 9 L Blood Pressure 135/88 Pulse Oximetry 98 98 98 Oxygen Delivery Nasal Cannula Oxygen Flow Rate 4 07/06/24 20:53 07/06/24 21:11 07/06/24 22:52 Temperature 98.2 F Pulse Rate 84 Respiratory Rate 16 14 Blood Pressure 134/82 Pulse Oximetry 98 96 93 Oxygen Delivery Nasal Cannula Oxygen Flow Rate 2 07/06/24 22:53 07/07/24 00:00 07/07/24 00:31 Temperature 97.8 F Pulse Rate 82 Respiratory Rate 14 16 16 Blood Pressure 129/83 Pulse Oximetry 93 97 97 Oxygen Delivery Oxygen Flow Rate 07/07/24 02:00 07/07/24 02:30 07/07/24 04:00 Temperature 97.8 F 97.8 F Pulse Rate 81 82 Respiratory Rate 13 13 13 Blood Pressure 118/86 128/83 Pulse Oximetry 81 L 97 98 Oxygen Delivery Oxygen Flow Rate 07/07/24 04:00 07/07/24 06:00 07/07/24 06:00 Temperature 97.6 F Pulse Rate 91 Respiratory Rate 13 16 16 Blood Pressure 136/80 Pulse Oximetry 98 96 96 Oxygen Delivery Oxygen Flow Rate 07/07/24 07:58 07/07/24 08:00 Temperature 98.1 F Pulse Rate 95 Respiratory Rate 16 Blood Pressure 128/85 Pulse Oximetry 96 97 Oxygen Delivery Nasal Cannula Oxygen Flow Rate 2 Exam 2 Narrative: General: HEENT: Normocephalic, atraumatic. PERRL, EOMI. Sclera anicteric. Oral mucosa moist. Oropharynx clear. Neck: Supple. Respiratory: Lungs are clear to auscultation bilaterally. Cardiovascular: Regular rate and rhythm with S1-S2. No murmur, rub, or gallop. Gastrointestinal: Abdomen is soft, nontender, and nondistended with positive bowel sounds. No organomegaly. Skin: Warm and dry. No rash or lesions on limited exam. Extremities: No cyanosis, clubbing, or edema. Radial and pedal pulses intact. Neurological: Alert. Cranial nerves 2-12 are grossly intact. Speech is clear. No facial asymmetry. No gross focal deficits to casual conversation. Psychiatric: Pleasant and cooperative with normal mood and affect. Judgment and insight intact. Results Labs 07/07/24 05:18 07/07/24 05:18 Labs: Short CBC 07/06/24 07/07/24 Range/Units 22:38 05:18 WBC 9.1 (4.5-10.0) K/mm3 Hgb 10.9 L 10.7 L (12.0-15.0) g/dL Hct 35.1 L 34.2 L (37.0-47.0) % Plt Count 179 (150-375) k/mm3 BMP 07/07/24 05:18 Sodium 141 Potassium 4.5 Chloride 108 H Carbon Dioxide 26 BUN 14 Creatinine 1.08 H Glucose 118 H Calcium 8.7 Liver Function 07/07/24 Range/Units 05:18 Total Bilirubin 0.3 (0.2-1.3) mg/dL AST 41 H (14-36) U/L ALT 30 (6-35) U/L Alkaline Phosphatase 60 (38-126) U/L Albumin 3.6 (3.5-5.1) g/dL
--- NOTE | 2024-07-07 09:58 | P.PNNEUSUR_ITS ---
Subjective Date/time seen: 07/07/24 09:58 Interval history: I was notified by the patient's nurse that the patient appeared to have left- sided weakness in both arm and leg she did not have a facial droop. I have no great explanation for left hemiparesis and recommended a CT scan of the head and cervical spine. I then drove over medially to evaluate her. By the time I arrived she had completed her CT scan of the head and cervical spine which was negative for any acute intracranial process and showed some chronic degenerative cervical spondylosis with neural foraminal stenosis worse on the right at C5-6 compared to the left however the patient has left-sided weakness. Upon my evaluation of patient she was lying in bed awake alert no acute distress. She is oriented times person place and time her pupils were equal round reactive light her extraocular movements were intact her face appeared symmetric her face shows sensation appears equal. Her tongue is midline she appeared fairly good strength in terms of her left side when I tested her. Specifically she was equal in strength in her whistle punk biceps triceps wrist extensors wrist flexors. However she had diminished ability to lift her left arm antigravity at the deltoid. Roughly 3/5 strength. She noted some pain in the shoulder and across the top of her chest along her clavicles but she denied any significant pain in her left arm. She had no numbness in her left arm her sensation was equal in her left arm she had no abnormal reflexes her left arm. Her lower extremity was equal strength testing in the iliopsoas, quadriceps, hamstrings, plantar flexors, dorsiflexors, EHL. Her drain put out 130 mL since around 8:00 a.m. this morning and the fluid appeared serosanguineous but slightly thinner than I would expect possibly including some spinal fluid. I recommended we take the drain out and I placed a stitch at the exit site. I am not concerned about stroke at this point. We should continue to monitor symptoms I discussed with the patient and her family that this was likely due to positioning. She appears to have significantly improved and her strength since her nurses evaluation prior to me being notified. This also may be because she was lying flat and is not able to get up and mobilize. Hopefully we can wean her from her IV pain medications today and transition to oral pain medications. I greatly appreciate hospitalist consultation for medical management. Objective Data Vital Signs Vital Signs: Vital Signs - 24 hr 07/06/24 12:33 07/06/24 12:45 07/06/24 13:00 Temperature 98 F Pulse Rate 99 89 85 Respiratory Rate 14 14 15 Blood Pressure 139/92 H 132/94 H 146/93 H Pulse Oximetry 99 99 99 Oxygen Delivery Simple Face Mask Simple Face Mask Simple Face Mask Oxygen Flow Rate 8 8 8 07/06/24 13:15 07/06/24 13:20 07/06/24 13:30 Temperature Pulse Rate 69 84 Respiratory Rate 12 14 Blood Pressure 137/88 123/71 Pulse Oximetry 99 95 96 Oxygen Delivery Simple Face Mask Nasal Cannula Nasal Cannula Oxygen Flow Rate 8 2 2 07/06/24 13:45 07/06/24 14:00 07/06/24 14:15 Temperature Pulse Rate 87 73 83 Respiratory Rate 14 13 13 Blood Pressure 140/92 H 130/77 123/74 Pulse Oximetry 96 95 97 Oxygen Delivery Nasal Cannula Nasal Cannula Nasal Cannula Oxygen Flow Rate 2 2 2 07/06/24 14:28 07/06/24 14:31 07/06/24 14:45 Temperature 97.4 F L 97.1 F L Pulse Rate 63 73 Respiratory Rate 18 16 Blood Pressure 116/80 127/91 H Pulse Oximetry 97 94 100 Oxygen Delivery Nasal Cannula Nasal Cannula Oxygen Flow Rate 2 2 07/06/24 15:00 07/06/24 15:30 07/06/24 16:30 Temperature 97.5 F L 97.4 F L 97.3 F L Pulse Rate 70 75 88 Respiratory Rate 16 16 16 Blood Pressure 132/85 126/83 130/77 Pulse Oximetry 100 99 97 Oxygen Delivery Oxygen Flow Rate 07/06/24 16:53 07/06/24 17:50 07/06/24 17:53 Temperature 97.2 F L Pulse Rate 84 Respiratory Rate 12 18 18 Blood Pressure 134/68 Pulse Oximetry 94 96 92 Oxygen Delivery Oxygen Flow Rate 07/06/24 18:10 07/06/24 18:47 07/06/24 18:55 Temperature 97.4 F L Pulse Rate 88 Respiratory Rate 16 18 Blood Pressure 105/78 Pulse Oximetry 97 98 97 Oxygen Delivery Nasal Cannula Oxygen Flow Rate 2 07/06/24 19:53 07/06/24 19:53 07/06/24 20:00 Temperature 97.4 F L Pulse Rate 89 Respiratory Rate 10 L 9 L Blood Pressure 135/88 Pulse Oximetry 98 98 98 Oxygen Delivery Nasal Cannula Oxygen Flow Rate 4 07/06/24 20:53 07/06/24 21:11 07/06/24 22:52 Temperature 98.2 F Pulse Rate 84 Respiratory Rate 16 14 Blood Pressure 134/82 Pulse Oximetry 98 96 93 Oxygen Delivery Nasal Cannula Oxygen Flow Rate 2 07/06/24 22:53 07/07/24 00:00 07/07/24 00:31 Temperature 97.8 F Pulse Rate 82 Respiratory Rate 14 16 16 Blood Pressure 129/83 Pulse Oximetry 93 97 97 Oxygen Delivery Oxygen Flow Rate 07/07/24 02:00 07/07/24 02:30 07/07/24 04:00 Temperature 97.8 F 97.8 F Pulse Rate 81 82 Respiratory Rate 13 13 13 Blood Pressure 118/86 128/83 Pulse Oximetry 81 L 97 98 Oxygen Delivery Oxygen Flow Rate 07/07/24 04:00 07/07/24 06:00 07/07/24 06:00 Temperature 97.6 F Pulse Rate 91 Respiratory Rate 13 16 16 Blood Pressure 136/80 Pulse Oximetry 98 96 96 Oxygen Delivery Oxygen Flow Rate 07/07/24 07:58 07/07/24 08:00 Temperature 98.1 F Pulse Rate 95 Respiratory Rate 16 Blood Pressure 128/85 Pulse Oximetry 96 97 Oxygen Delivery Nasal Cannula Oxygen Flow Rate 2 Intake/Output Intake/Output: Intake & Output 07/04/24 07/05/24 07/06/24 07/07/24 23:59 23:59 23:59 23:59 Intake Total 2650 1000 Output Total 865 825 Balance 1785 175 Meds/Results Medications: Active Medications Generic Name Dose Route Start Last Admin Trade Name Freq PRN Reason Stop Dose Admin Acetaminophen 1,000 mg 07/06/24 14:31 Acetaminophen 500 Mg Tablet PO Q6H PRN PAIN RATED 1-3 Hydrocodone Bitart/Acetaminophen 1 tab 07/06/24 14:31 Hydrocodone/Acetaminophen (*Crx) 5-325 Mg Tablet PO Q4H PRN Mild Pain (1-3) Hydrocodone Bitart/Acetaminophen 1 tab 07/06/24 14:31 Hydrocodone/Acetaminophen (*Crx) 10-325 Mg Tablet PO Q4H PRN Moderate Pain (4-6) Al Hydrox/Mg Hydrox/Simethicone 20 ml 07/06/24 14:31 Mag Hydrox/Al Hydrox/Simeth 30 Ml Udc PO Q4H PRN Indigestion/Heartburn Bisacodyl 10 mg 07/06/24 14:31 Bisacodyl 10 Mg Suppository RECTAL DAILY PRN Constipation Cyclobenzaprine HCl 10 mg 07/06/24 14:31 Cyclobenzaprine Hcl 10 Mg Tablet PO TID PRN Muscle Spasms Docusate Sodium 100 mg 07/06/24 21:00 07/06/24 20:03 Docusate Sodium 100 Mg Capsule PO Not Given Q12HR RAYMUNDO Hydromorphone HCl 0.5 mg 07/06/24 15:10 07/06/24 15:20 Hydromorphone Hcl Inj (*Crx) 2 Mg/Ml Vial IV PUSH 0.5 mg Q2H PRN Administration Pain Rated 7-10 Cefazolin Sodium 2 gm in 50 mls @ 100 mls/hr 07/06/24 16:00 07/07/24 08:44 Ancef 2 Gm/D5w 50 Ml IVPB 100 mls/hr Q8H RAYMUNDO Administration Hydromorphone HCl 6 mg in 30 mls @ 0 mls/hr 07/06/24 15:41 07/07/24 06:00 Dilaudid 0.2 Mg/Ml Products Mechanical Design Engineer IV CONT 0 mg/hr PRN PRN 0 mls/hr [employer] Management Titration Protocol 0 MG/HR Sodium Chloride 1,000 mls @ 100 mls/hr 07/06/24 17:35 07/07/24 04:52 Normal Saline Iv IV CONT 100 mls/hr .Q10H RAYMUNDO Administration Levothyroxine Sodium 88 mcg 07/07/24 06:30 Levothyroxine Sodium 88 Mcg Tablet PO DAILY@0630 RAYMUNDO Lovastatin 20 mg 07/07/24 09:00 Lovastatin 20 Mg Tablet PO DAILY RAYMUNDO Melatonin 20 mg 07/06/24 21:00 07/06/24 20:03 Melatonin 5 Mg Tablet PO Not Given HS RAYMUNDO Multivitamins/Calcium 1 tablet 07/07/24 09:00 Therapeutic Multivitamins/Minerals Tab (*Bkc) PO DAILY RAYMUNDO Ondansetron HCl 4 mg 07/06/24 14:31 Ondansetron Inj 4 Mg/2 Ml Vial IV PUSH Q8H PRN Nausea And Vomiting Senna/Docusate Sodium 1 tab 07/06/24 14:31 Senna/Docusate Sodium Tablet PO HS PRN Constipation Vitamin D 1,000 units 07/07/24 09:00 Cholecalciferol 1,000 Units Tablet PO DAILY RAYMUNDO Radiology Results: ITS Impressions Head CT 07/07/24 09:42 IMPRESSION: 1. Mild scattered white matter hypoattenuation consistent with chronic small vessel ischemic disease. No other acute intracranial process. Cervical Spine CT 07/07/24 09:46 IMPRESSION: 1. Moderate to severe cervical spondylosis most notable for severe neural foraminal stenosis on the right at C5-C6. Labs Labs: Laboratory Results - last 24 hr 07/06/24 07/07/24 22:38 05:18 WBC 9.1 RBC 3.79 L Hgb 10.9 L 10.7 L Hct 35.1 L 34.2 L MCV 90.2 MCH 28.2 MCHC 31.3 L RDW 13.4 Plt Count 179 MPV 9.7 Immature Gran % (Auto) 0.4 Neut % (Auto) 76.5 H Lymph % (Auto) 15.7 L [place] % (Auto) 7.3 Eos % (Auto) 0.0 Baso % (Auto) 0.1 L Lymph # (Auto) 1.43 [place] # (Auto) 0.7 H Eos # (Auto) 0.0 Baso # (Auto) 0.0 Abs Immat Gran (auto) 0.04 H Absolute Neuts (auto) 6.9 H Absolute Nucleated RBC 0.000 Nucleated RBC % 0.0 Sodium 141 Potassium 4.5 Chloride 108 H Carbon Dioxide 26 Anion Gap 7 BUN 14 Creatinine 1.08 H Estim Creat Clear Calc 47 Estimated GFR 51 L Glucose 118 H Calcium 8.7 Magnesium 2.0 Total Bilirubin 0.3 AST 41 H ALT 30 Alkaline Phosphatase 60 Total Protein 6.0 L Albumin 3.6 TSH (Reflex) 0.513
[2024-07-07] MEDS: ONDANSETRON INJ 4 MG/2 ML VIAL IV PUSH (10:08)
--- NOTE | 2024-07-07 11:39 | PC.NURSE ---
Upon AM assessment, this RN performed neuro check, noting pt to have weaker left hand manager exchange, left foot plantar/dorsiflex, L leg weakness, and L shoulder mobility impairment. Pt had equal smile, visual acuity, equal bilat sensations. Provider made aware. CT head and C spine ordered and completed. Provider to bedside, NIH stroke scale performed. Pt symptoms lessened by time provider assessing. Pt still c/o L shoulder dismobility. Pt having significant drain output; 130mls in two hours. Pt c/o significant headache, rating 8/10 (previously was 5). MD ordered drain removal and performed with two stitch placement at bedside. Pt HOB instructions modified to raising 10 degrees per hour, as pt tolerates.
[2024-07-07] MEDS: ACETAMINOPHEN 500 MG TABLET 1000 MG PO (12:07)
[2024-07-07] MEDS: HYDROcodone/acetaminophen (*CRX) 10-325 MG TABLET 1 TAB PO (13:04)
[2024-07-07] MEDS: LEVOTHYROXINE SODIUM 88 MCG TABLET PO (13:05)
[2024-07-07] MEDS: LOVASTATIN 20 MG TABLET PO (13:05)
[2024-07-07 13:53] LABS: Glucose Point of Care 45 mg/dl (65-105)
[2024-07-07] MEDS: diphenhydrAMINE HCl INJ 50 MG/ML VIAL 25 MG IV PUSH (16:21)
[2024-07-07] MEDS: oxyCODONE/ACETAMINOPHEN (*CRX) 10-325 MG TABLET 1 TAB PO (16:26)
[2024-07-07] MEDS: HYDROmorphone HCL INJ (*CRX) 2 MG/ML VIAL 0.5 MG IV PUSH (19:28)
[2024-07-07] MEDS: DOCUSATE SODIUM 100 MG CAPSULE PO (20:53)
[2024-07-07] MEDS: MELATONIN 5 MG TABLET 20 MG PO (20:53)
[2024-07-08] MEDS: oxyCODONE/ACETAMINOPHEN (*CRX) 10-325 MG TABLET 1 TAB PO ×5 (00:20→22:16)
[2024-07-08] MEDS: diphenhydrAMINE HCl CAP 25 MG CAPSULE PO ×2 (00:20→06:33)
[2024-07-08] MEDS: SODIUM CHLORIDE 0.9% IV 1,000 ML 100 ML IV CONT (00:52)
[2024-07-08 06:00] VITALS: BP 115/67; PULSE 116; RESP 16; TEMP 36.8; O2SAT 90
[2024-07-08] MEDS: LEVOTHYROXINE SODIUM 88 MCG TABLET PO (06:33)
[2024-07-08 08:00] VITALS: O2SAT 77
[2024-07-08 08:04] VITALS: O2SAT 90
[2024-07-08 08:05] LABS: Hematocrit 30.2 % (37.0-47.0); Hemoglobin 9.2 g/dL (12.0-15.0); Mean Corpuscular HGB Conc 30.5 g/dl (32-36); Mean Corpuscular Hemoglobin 27.9 pg (26-34); Mean Corpuscular Volume 91.5 fl (80-100); Mean Platelet Volume 9.8 fl (7.4-10.4); Platelet Count Result 143 k/mm3 (150-375); Red Cell Distribution Width 13.7 % (11.5-14.5); White Blood Count 8.2 K/mm3 (4.5-10.0)
--- NOTE | 2024-07-08 08:05 | PCRCNOTE ---
During oxygen rounds this morning, this RT found patient on a NC that wasn't hooked up to the flowmeter. Patient had previously been on a continuous capnography machine with a NC hooked to that machine but is no longer using it. RT found the capnography NC still hooked to the flowmeter on 2L. Patient's initial O2 sat was 77%. RT hooked up the correct NC to the flowmeter on 2L and patient's O2 sat came up to 90%. Will notify RN.
[2024-07-08 08:13] LABS: Anion Gap 3 mmol/L (4-12); Blood Urea Nitrogen 14 mg/dL (7-17); Calcium 8.3 mg/dL (8.4-10.2); Carbon Dioxide 25 mmol/L (22-30); Chloride 108 mmol/L (98-107); Estimated CRCL calculation 56 ml/min; Estimated Glomerular Filt Rate 60; Glucose 122 mg/dL (65-110); Sodium 136 mmol/L (137-145)
[2024-07-08] MEDS: CHOLECALCIFEROL 1,000 UNITS TABLET 1000 UNITS PO (09:22)
[2024-07-08] MEDS: THERAPEUTIC MULTIVITAMINS/MINERALS TAB (*BKC) 1 TABLET PO (09:22)
[2024-07-08] MEDS: ACETAMINOPHEN 500 MG TABLET 1000 MG PO (09:23)
[2024-07-08] MEDS: LOVASTATIN 20 MG TABLET PO (09:23)
[2024-07-08] MEDS: DOCUSATE SODIUM 100 MG CAPSULE PO ×2 (09:23→20:39)
--- NOTE | 2024-07-08 10:23 | P.PNNEUSUR_ITS ---
Subjective Date/time seen: 07/08/24 10:23 Interval history: Patient is doing much better today she is up chair she has ambulated her Warner is out her drain is out and her pain is more controlled she denied a longer requires the Dilaudid [employer]NAGER [employer]. She was switched to Percocet yesterday by the hospitalist team which I greatly appreciate as the patient seems to feel this is more helpful to in terms of controlling her pain unfortunately she does have some headaches. I do think that these headaches are are cauda overuse related. I do not think this is secondary to CSF leak as she lost a very small amount of CSF. If it is this will improve on its own time and also with less use narcoti cs over time. She ambulated with occupational therapy today she walked ambulate with physical therapy today she has a good support system at home her granddaughter and her work. It would be reasonable for her to go home today my opinion she may also stay the night if she wishes and go. She remains neurologically intact without any focal neurologic deficits or radiating pain into her extremities although pain is localized to her incision. Objective Data Vital Signs Vital Signs: Vital Signs - 24 hr 07/07/24 12:00 07/07/24 12:00 07/07/24 13:18 Temperature 98.1 F Pulse Rate 79 Respiratory Rate 16 16 Blood Pressure 117/77 Pulse Oximetry 100 100 Oxygen Delivery Room Air Oxygen Flow Rate Fraction of Inspired Oxygen 07/07/24 14:00 07/07/24 14:00 07/07/24 16:00 Temperature 97.4 F L Pulse Rate 85 Respiratory Rate 16 16 16 Blood Pressure 98/74 L Pulse Oximetry 94 94 94 Oxygen Delivery Oxygen Flow Rate Fraction of Inspired Oxygen 07/07/24 16:00 07/07/24 20:00 07/07/24 21:30 Temperature 97.5 F L Pulse Rate 94 93 93 Respiratory Rate 16 19 19 Blood Pressure 97/63 L Pulse Oximetry 94 97 97 Oxygen Delivery Room Air Nasal Cannula Oxygen Flow Rate 2 Fraction of Inspired Oxygen 07/07/24 22:00 07/08/24 06:00 07/08/24 08:00 Temperature 98.4 F 98.2 F Pulse Rate 102 H 116 H Respiratory Rate 18 16 Blood Pressure 109/68 115/67 Pulse Oximetry 94 90 77 L Oxygen Delivery Room Air Oxygen Flow Rate Fraction of Inspired Oxygen 07/08/24 08:04 Temperature Pulse Rate Respiratory Rate Blood Pressure Pulse Oximetry 90 Oxygen Delivery Nasal Cannula Oxygen Flow Rate 2 Fraction of Inspired Oxygen 28 Intake/Output Intake/Output: Intake & Output 07/05/24 07/06/24 07/07/24 07/08/24 23:59 23:59 23:59 23:59 Intake Total 2650 2166.7 1540 Output Total 865 2195 Balance 1785 -28.3 1540 Meds/Results Medications: Active Medications Generic Name Dose Route Start Last Admin Trade Name Freq PRN Reason Stop Dose Admin Acetaminophen 1,000 mg 07/06/24 14:31 07/08/24 09:23 Acetaminophen 500 Mg Tablet PO 1,000 mg Q6H PRN Administration PAIN RATED 1-3 Al Hydrox/Mg Hydrox/Simethicone 20 ml 07/06/24 14:31 Mag Hydrox/Al Hydrox/Simeth 30 Ml Udc PO Q4H PRN Indigestion/Heartburn Bisacodyl 10 mg 07/06/24 14:31 Bisacodyl 10 Mg Suppository RECTAL DAILY PRN Constipation Cyclobenzaprine HCl 10 mg 07/06/24 14:31 Cyclobenzaprine Hcl 10 Mg Tablet PO TID PRN Muscle Spasms Diphenhydramine HCl 25 mg 07/07/24 20:36 07/08/24 06:33 Diphenhydramine Hcl Cap 25 Mg Capsule PO 25 mg Q6H PRN Administration Itching Docusate Sodium 100 mg 07/06/24 21:00 07/08/24 09:23 Docusate Sodium 100 Mg Capsule PO 100 mg Q12HR RAYMUNDO Administration Hydromorphone HCl 0.5 mg 07/06/24 15:10 07/07/24 19:28 Hydromorphone Hcl Inj (*Crx) 2 Mg/Ml Vial IV PUSH 0.5 mg Q2H PRN Administration Pain Rated 7-10 Sodium Chloride 1,000 mls @ 125 mls/hr 07/06/24 17:35 07/08/24 00:52 Normal Saline Iv IV CONT 100 mls/hr .Q8H RAYMUNDO Administration Levothyroxine Sodium 88 mcg 07/07/24 06:30 07/08/24 06:33 Levothyroxine Sodium 88 Mcg Tablet PO 88 mcg DAILY@0630 RAYMUNDO Administration Lovastatin 20 mg 07/07/24 09:00 07/08/24 09:23 Lovastatin 20 Mg Tablet PO 20 mg DAILY RAYMUNDO Administration Melatonin 20 mg 07/06/24 21:00 07/07/24 20:53 Melatonin 5 Mg Tablet PO 20 mg HS RAYMUNDO Administration Multivitamins/Calcium 1 tablet 07/07/24 09:00 07/08/24 09:22 Therapeutic Multivitamins/Minerals Tab (*Bkc) PO 1 tablet DAILY RAYMUNDO Administration Ondansetron HCl 4 mg 07/06/24 14:31 07/07/24 10:08 Ondansetron Inj 4 Mg/2 Ml Vial IV PUSH 4 mg Q8H PRN Administration Nausea And Vomiting Oxycodone/Acetaminophen 1 tab 07/08/24 10:22 Oxycodone/Acetaminophen (*Crx) 10-325 Mg Tablet PO Q4HR PRN Pain Rated 1-6 Senna/Docusate Sodium 1 tab 07/06/24 14:31 Senna/Docusate Sodium Tablet PO HS PRN Constipation Vitamin D 1,000 units 07/07/24 09:00 07/08/24 09:22 Cholecalciferol 1,000 Units Tablet PO 1,000 units DAILY RAYMUNDO Administration Radiology Results: ITS Impressions Head CT 07/07/24 09:42 IMPRESSION: 1. Mild scattered white matter hypoattenuation consistent with chronic small vessel ischemic disease. No other acute intracranial process. Cervical Spine CT 07/07/24 09:46 IMPRESSION: 1. Moderate to severe cervical spondylosis most notable for severe neural foraminal stenosis on the right at C5-C6. Labs Labs: Laboratory Results - last 24 hr 07/07/24 07/08/24 10:05 07:46 WBC 8.2 RBC 3.30 L Hgb 9.2 L Hct 30.2 L MCV 91.5 MCH 27.9 MCHC 30.5 L RDW 13.7 Plt Count 143 L MPV 9.8 Sodium 136 L Potassium 4.0 Chloride 108 H Carbon Dioxide 25 Anion Gap 3 L BUN 14 Creatinine 0.93 Estim Creat Clear Calc 56 Estimated GFR 60 Glucose 122 H POC Capillary Glucose 45 L* Calcium 8.3 L
--- NOTE | 2024-07-08 10:35 | P.PNIM_ITS ---
Progress Note: A&P Assessment and Plan (1) Lumbar spondylosis: Code(s): M47.816 - Spondylosis without myelopathy or radiculopathy, lumbar region Status: Acute Assessment and Plan: Postoperative day 0 status post L4-L5 posterior lumbar interbody fusion complicated by pinprick dural tear. Wound care, pain control, and DVT prophylaxis deferred to primary service. 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 no nausea (2) Spinal stenosis: Code(s): M48.00 - Spinal stenosis, site unspecified Status: Acute Assessment and Plan: Plan is as detailed above. (3) Hyperlipidemia: Code(s): E78.5 - Hyperlipidemia, unspecified Status: Acute Assessment and Plan: Resume statin once tolerating p.o.. (4) Hypothyroidism: Code(s): E03.9 - Hypothyroidism, unspecified Status: Acute Assessment and Plan: IV levothyroxine daily until tolerating p.o.. Plan Thank you for allowing us to participate in this patient's care. Please do not hesitate to contact us with any questions. Time Spent With Patient Time with patient: 25 - 35 minutes Subjective Date/time seen: 07/08/24 10:35 Interval history: Hospitalist team is following with neurosurgery. status post L4-L5 posterior lumbar interbody fusion complicated by pinprick dural tear. Pt is seen and examined. Drain was pulled per Ashley Collier STABILIZING MACHINE OPERATOR d/c. Pain is better with PO pain meds. Ok to stop iV fluids. She is ambulating well. noted that she is on 2l -reported that she wears o2 prn when sleeping. Needs to be eval. for CASIE. will direct for f/u when discharged. Review of Systems Review of Systems: 12 systems were reviewed and are negativ e except for as per HPI. All systems reviewed & are unremarkable except as noted in HPI and below Exam Narrative: General: alert, oriented, pain is controlled well with PO meds HEENT: Normocephalic, atraumatic. PERRL, EOMI. Sclera anicteric. Oral mucosa moist. Oropharynx clear. Neck: Supple. Respiratory: Lungs are clear to auscultation bilaterally. Cardiovascular: Regular rate and rhythm with S1-S2. No murmur, rub, or gallop. Gastrointestinal: Abdomen is soft, nontender, and nondistended with positive bowel sounds. No organomegaly. Skin: Warm and dry. No rash or lesions on limited exam. Extremities: No cyanosis, clubbing, or edema. Radial and pedal pulses intact. Neurological: Alert. Cranial nerves 2-12 are grossly intact. Speech is clear. No facial asymmetry. No gross focal deficits to casual conversation. Psychiatric: Pleasant and cooperative with normal mood and affect. Judgment and insight intact. Const: General: comfortable Objective Data Vital Signs Vital Signs: Vital Signs - 24 hr 07/07/24 12:00 07/07/24 12:00 07/07/24 13:18 Temperature 98.1 F Pulse Rate 79 Respiratory Rate 16 16 Blood Pressure 117/77 Pulse Oximetry 100 100 Oxygen Delivery Room Air Oxygen Flow Rate Fraction of Inspired Oxygen 07/07/24 14:00 07/07/24 14:00 07/07/24 16:00 Temperature 97.4 F L Pulse Rate 85 Respiratory Rate 16 16 16 Blood Pressure 98/74 L Pulse Oximetry 94 94 94 Oxygen Delivery Oxygen Flow Rate Fraction of Inspired Oxygen 07/07/24 16:00 07/07/24 20:00 07/07/24 21:30 Temperature 97.5 F L Pulse Rate 94 93 93 Respiratory Rate 16 19 19 Blood Pressure 97/63 L Pulse Oximetry 94 97 97 Oxygen Delivery Room Air Nasal Cannula Oxygen Flow Rate 2 Fraction of Inspired Oxygen 07/07/24 22:00 07/08/24 06:00 07/08/24 08:00 Temperature 98.4 F 98.2 F Pulse Rate 102 H 116 H Respiratory Rate 18 16 Blood Pressure 109/68 115/67 Pulse Oximetry 94 90 77 L Oxygen Delivery Room Air Oxygen Flow Rate Fraction of Inspired Oxygen 21 07/08/24 08:04 Temperature Pulse Rate Respiratory Rate Blood Pressure Pulse Oximetry 90 Oxygen Delivery Nasal Cannula Oxygen Flow Rate 2 Fraction of Inspired Oxygen 28 Intake/Output Intake/Output: Intake & Output 07/05/24 07/06/24 07/07/24 07/08/24 23:59 23:59 23:59 23:59 Intake Total 2650 2166.7 1540 Output Total 865 2195 Balance 1785 -28.3 1540 Meds/Results Medications: Active Medications Generic Name Dose Route Start Last Admin Trade Name Freq PRN Reason Stop Dose Admin Acetaminophen 1,000 mg 07/06/24 14:31 07/08/24 09:23 Acetaminophen 500 Mg Tablet PO 1,000 mg Q6H PRN Administration PAIN RATED 1-3 Al Hydrox/Mg Hydrox/Simethicone 20 ml 07/06/24 14:31 Mag Hydrox/Al Hydrox/Simeth 30 Ml Udc PO Q4H PRN Indigestion/Heartburn Bisacodyl 10 mg 07/06/24 14:31 Bisacodyl 10 Mg Suppository RECTAL DAILY PRN Constipation Cyclobenzaprine HCl 10 mg 07/06/24 14:31 Cyclobenzaprine Hcl 10 Mg Tablet PO TID PRN Muscle Spasms Diphenhydramine HCl 25 mg 07/07/24 20:36 07/08/24 06:33 Diphenhydramine Hcl Cap 25 Mg Capsule PO 25 mg Q6H PRN Administration Itching Docusate Sodium 100 mg 07/06/24 21:00 07/08/24 09:23 Docusate Sodium 100 Mg Capsule PO 100 mg Q12HR RAYMUNDO Administration Hydromorphone HCl 0.5 mg 07/06/24 15:10 07/07/24 19:28 Hydromorphone Hcl Inj (*Crx) 2 Mg/Ml Vial IV PUSH 0.5 mg Q2H PRN Administration Pain Rated 7-10 Sodium Chloride 1,000 mls @ 125 mls/hr 07/06/24 17:35 07/08/24 00:52 Normal Saline Iv IV CONT 100 mls/hr .Q8H RAYMUNDO Administration Levothyroxine Sodium 88 mcg 07/07/24 06:30 07/08/24 06:33 Levothyroxine Sodium 88 Mcg Tablet PO 88 mcg DAILY@0630 RAYMUNDO Administration Lovastatin 20 mg 07/07/24 09:00 07/08/24 09:23 Lovastatin 20 Mg Tablet PO 20 mg DAILY RAYMUNDO Administration Melatonin 20 mg 07/06/24 21:00 07/07/24 20:53 Melatonin 5 Mg Tablet PO 20 mg HS RAYMUNDO Administration Multivitamins/Calcium 1 tablet 07/07/24 09:00 07/08/24 09:22 Therapeutic Multivitamins/Minerals Tab (*Bkc) PO 1 tablet DAILY RAYMUNDO Administration Ondansetron HCl 4 mg 07/06/24 14:31 07/07/24 10:08 Ondansetron Inj 4 Mg/2 Ml Vial IV PUSH 4 mg Q8H PRN Administration Nausea And Vomiting Oxycodone/Acetaminophen 1 tab 07/08/24 10:22 Oxycodone/Acetaminophen (*Crx) 10-325 Mg Tablet PO Q4HR PRN Pain Rated 1-6 Senna/Docusate Sodium 1 tab 07/06/24 14:31 Senna/Docusate Sodium Tablet PO HS PRN Constipation Vitamin D 1,000 units 07/07/24 09:00 07/08/24 09:22 Cholecalciferol 1,000 Units Tablet PO 1,000 units DAILY RAYMUNDO Administration Radiology Results: ITS Impressions Head CT 07/07/24 09:42 IMPRESSION: 1. Mild scattered white matter hypoattenuation consistent with chronic small vessel ischemic disease. No other acute intracranial process. Cervical Spine CT 07/07/24 09:46 IMPRESSION: 1. Moderate to severe cervical spondylosis most notable for severe neural foraminal stenosis on the right at C5-C6. Labs Labs: Laboratory Results - last 24 hr 07/07/24 07/08/24 10:05 07:46 WBC 8.2 RBC 3.30 L Hgb 9.2 L Hct 30.2 L MCV 91.5 MCH 27.9 MCHC 30.5 L RDW 13.7 Plt Count 143 L MPV 9.8 Sodium 136 L Potassium 4.0 Chloride 108 H Carbon Dioxide 25 Anion Gap 3 L BUN 14 Creatinine 0.93 Estim Creat Clear Calc 56 Estimated GFR 60 Glucose 122 H POC Capillary Glucose 45 L* Calcium 8.3 L
[2024-07-08 14:00] VITALS: BP 96/65; PULSE 92; RESP 16; TEMP 36.9; O2SAT 94
[2024-07-08 20:39] VITALS: O2SAT 92
[2024-07-08] MEDS: MELATONIN 5 MG TABLET 20 MG PO (20:39)
[2024-07-08 20:47] VITALS: BP 110/70; PULSE 109; RESP 16; TEMP 37.6; O2SAT 92
[2024-07-09] MEDS: LEVOTHYROXINE SODIUM 88 MCG TABLET PO (05:47)
[2024-07-09 06:00] VITALS: BP 109/64; PULSE 101; RESP 16; TEMP 36.8; O2SAT 96
--- NOTE | 2024-07-09 07:15 | P.CONIM_ITS ---
Assessment and Plan Assessment and plan (1) Lumbar spondylosis: Code(s): M47.816 - Spondylosis without myelopathy or radiculopathy, lumbar region Status: Acute Assessment and Plan: status post L4-L5 posterior lumbar interbody fusion complicated by pinprick dural tear on 07/06/24 Wound care, pain control, and DVT prophylaxis deferred to primary service. 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 no nausea (2) Spinal stenosis: Code(s): M48.00 - Spinal stenosis, site unspecified Status: Acute Assessment and Plan: Plan is as detailed above. L (3) Hyperlipidemia: Code(s): E78.5 - Hyperlipidemia, unspecified Status: Acute Assessment and Plan: Resume statin once tolerating p.o.. L (4) Hypothyroidism: Code(s): E03.9 - Hypothyroidism, unspecified Status: Acute Assessment and Plan: IV levothyroxine daily until tolerating p.o.. L Plan Thank you for allowing us to participate in this patient's care. Please do not hesitate to contact us with any questions. HPI Date of Consult Consult date: 07/09/24 Requesting Physician: Mark Garrido MD Primary Care Provider: Jp Schulz, Consult Narrative Reason for consult: med mngmnt Narrative: Hospitalist team is following with neurosurgery. status post L4-L5 posterior lumbar interbody fusion complicated by pinprick dural tear. Pt is seen and examined. Drain was pulled per DR Garrido, Mirnaid DESKTOP PUBLISHER d/c. Pain is better with PO pain meds. Ok to stop iV fluids. She is ambulating well. noted that she is on 2l -reported that she wears o2 prn when sleeping. Needs to be eval. for CASIE. will direct for f/u when discharged. pt is doing well this am. occasional headache- received with tylenol. pain is controlled. she is cleared for discharge per neurosurgery Review of Systems 2 Review of Systems: 12 systems were reviewed and are negativ e except for as per HPI. All systems reviewed & are unremarkable except as noted in HPI and below [facility] Past Medical History Medical History (Updated 07/06/24 @ 19:53 by Nava Mcnally PA-C) Kidney stones Hyperlipidemia Hypothyroidism Allergies Surgical History Surgical History (Updated 07/06/24 @ 17:35 by Nava Mcnally PA-C) History of lumbar fusion (07/06/24) L4-L5 History of bilateral breast reduction surgery History of hysterectomy History of arthroscopy of right knee Social History Social History (Updated 07/06/24 @ 17:36 by Nava Mcnally PA-C) Social History: Surrogate medical decision maker: Malachi Cantor, spouse. Code status: Full code. Smoking status: Never smoker Do You Feel Safe in your Home?: Yes Lack of Transportation: YES Lack of Food: Never True Current Housing: I Have Housing Concerned About Future Housing: No Difficulty Paying Gas/Electric Bills: No Difficulty Paying for Meds: No Currently Unemployed: No Education: Decline to Answer Difficulty w/ Childcare or Family Care: No Living arrangements: with family Spiritual care concerns: No Meds Home Medications and Allergies Home Medications ?Medication ?Instructions ?Recorded ?Confirmed ?Type cholecalciferol (vitamin D3) 25 25 mcg PO DAILY 03/16/24 07/06/24 History mcg (1,000 unit) tablet levothyroxine 88 mcg capsule 88 mcg PO DAILY 03/16/24 07/06/24 History lovastatin 20 mg tablet 20 mg PO DAILY 03/16/24 07/06/24 History ibuprofen-diphenhydramine citrate 1 cap PO HS 05/10/24 07/06/24 History 200 mg-38 mg tablet (Advil PM) melatonin 10 mg capsule 20 mg PO HS 05/10/24 07/06/24 History vxpyvpiz-axr-bhot-FA-Ca carb-vit K 1 tablet PO DAILY 05/10/24 07/06/24 History 18 mg iron-400 mcg-500 mg tablet (Women's One Daily) acetaminophen 500 mg tablet 1,000 mg PO Q6H PRN pain 06/21/24 06/21/24 History (Acetaminophen Extra Strength) cyclobenzaprine 5 mg tablet 5 mg PO HS #30 tabs 07/06/24 Rx oxycodone 5 mg tablet 5 mg PO Q4H PRN pain #32 tabs 05/23/25 Rx sennosides 8.6 mg tablet (senna) 8.6 mg PO BID PRN constipation #30 07/06/24 Rx tabs oxycodone-acetaminophen 10 mg-325 1 tablet PO Q4H PRN pain #42 tabs 07/08/24 Rx mg tablet (Percocet) Allergies Allergy/AdvReac Type Severity Reaction Status Date / Time codeine AdvReac Mild Nausea and Verified 07/08/24 10:23 Vomiting Vital Signs Vital Signs - 24 hr 07/08/24 08:00 07/08/24 08:00 07/08/24 08:04 Temperature Pulse Rate Respiratory Rate Blood Pressure Pulse Oximetry 77 L 90 Oxygen Delivery Room Air Room Air Nasal Cannula Oxygen Flow Rate 2 Fraction of Inspired Oxygen 21 28 07/08/24 14:00 07/08/24 20:39 07/08/24 20:47 Temperature 98.4 F 99.6 F Pulse Rate 92 109 H Respiratory Rate 16 16 Blood Pressure 96/65 L 110/70 Pulse Oximetry 94 92 92 Oxygen Delivery Room Air Oxygen Flow Rate Fraction of Inspired Oxygen 07/09/24 06:00 Temperature 98.2 F Pulse Rate 101 H Respiratory Rate 16 Blood Pressure 109/64 Pulse Oximetry 96 Oxygen Delivery Oxygen Flow Rate Fraction of Inspired Oxygen Exam 2 Narrative: General: alert, oriented, doing well this morning HEENT: Normocephalic, atraumatic. PERRL, EOMI. Sclera anicteric. Oral mucosa moist. Oropharynx clear. Neck: Supple. Respiratory: Lungs are clear to auscultation bilaterally. Cardiovascular: Regular rate and rhythm with S1-S2. No murmur, rub, or gallop. Gastrointestinal: Abdomen is soft, nontender, and nondistended with positive bowel sounds. No organomegaly. Skin: Warm and dry. No rash or lesions on limited exam. Extremities: No cyanosis, clubbing, or edema. Radial and pedal pulses intact. Neurological: Alert. Cranial nerves 2-12 are grossly intact. Speech is clear. No facial asymmetry. No gross focal deficits to casual conversation. Psychiatric: Pleasant and cooperative with normal mood and affect. Judgment and insight intact. Const: General: comfortable Results Labs 07/09/24 07:24 07/09/24 07:24 Labs: Short CBC 07/08/24 Range/Units 07:46 WBC 8.2 (4.5-10.0) K/mm3 Hgb 9.2 L (12.0-15.0) g/dL Hct 30.2 L (37.0-47.0) % Plt Count 143 L (150-375) k/mm3 BMP 07/08/24 07:46 Sodium 136 L Potassium 4.0 Chloride 108 H Carbon Dioxide 25 BUN 14 Creatinine 0.93 Glucose 122 H Calcium 8.3 L
[2024-07-09 07:54] LABS: Hematocrit 29.9 % (37.0-47.0); Hemoglobin 9.2 g/dL (12.0-15.0); Mean Corpuscular HGB Conc 30.8 g/dl (32-36); Mean Corpuscular Hemoglobin 27.5 pg (26-34); Mean Corpuscular Volume 89.5 fl (80-100); Mean Platelet Volume 9.9 fl (7.4-10.4); Platelet Count Result 142 k/mm3 (150-375); Red Blood Count 3.34 M/mm3 (4.2-5.4); Red Cell Distribution Width 13.3 % (11.5-14.5); White Blood Count 9.3 K/mm3 (4.5-10.0)
[2024-07-09 08:00] VITALS: O2SAT 96
[2024-07-09 08:10] LABS: Anion Gap 4 mmol/L (4-12); Blood Urea Nitrogen 10 mg/dL (7-17); Calcium 8.3 mg/dL (8.4-10.2); Carbon Dioxide 27 mmol/L (22-30); Chloride 103 mmol/L (98-107); Estimated CRCL calculation 59 ml/min; Estimated Glomerular Filt Rate > 60; Glucose 110 mg/dL (65-110); Potassium 3.6 mmol/L (3.4-5.0); Sodium 134 mmol/L (137-145)
[2024-07-09] MEDS: THERAPEUTIC MULTIVITAMINS/MINERALS TAB (*BKC) 1 TABLET PO (09:12)
[2024-07-09] MEDS: LOVASTATIN 20 MG TABLET PO (09:12)
[2024-07-09] MEDS: CHOLECALCIFEROL 1,000 UNITS TABLET 1000 UNITS PO (09:12)
[2024-07-09] MEDS: DOCUSATE SODIUM 100 MG CAPSULE PO (09:12)
[2024-07-09 09:29] VITALS: TEMP 37.3
[2024-07-09] MEDS: ACETAMINOPHEN 500 MG TABLET 1000 MG PO (09:29)
--- NOTE | 2024-07-13 09:27 | PM.DS ---
DS: Admitting Diagnosis Discharge Date 07/09/24 Admitting Diagnosis lumbar spondylosis DS: Discharge Diagnosis Discharge Diagnosis (1) Lumbar spondylosis: Code(s): M47.816 - Spondylosis without myelopathy or radiculopathy, lumbar region Status: Acute DS: Summary Hospital Course Hospital Course: 69 year old female who was admitted for L4-5 posterior lumbar interbody fusion with use of intraoperative navigation. The procedure went well with the exception of a pinpoint dural tear that was repaired immediately with a single stitch and muscle patch. For this reason she was kept flat for 24 hours. She had significant pain requiring IV pain medications. This was slowly weaned over the next two days. She ambulated with PT/OT and her pain was more improved. She was deemed stable for discharge on POD3. Time Spent with Patient Time attestation: Total time spent providing and/or coordinating discharge services: Exam Narrative: awake alert no acute distress MAEW 06/18 including IP/Q/H/PF/DF/EHL inc c/d/i Discharge Plan Discharge Attending physician on discharge: Mark Garrido Consulting providers: Nava Mcnally; Portillo Jay; Ana Guadalupe Discharging Clinician: Mark Garrido Patient Disposition: Home Activity: may shower Diet: as tolerated Discharge Instructions: Remove the Scopolamine patch that was placed behind your ear in 72 hours or less. Wash your hands after touching.Dr Garrido Discharge Instructions Okay to ambulate. Okay to shower. Do not bathe/swim X 6 weeks. No bending, lifting, twisting or lifting heavier than 1 gallon of milk. Schedule a follow-up clinic appointment in 2 weeks. Please f/u with PCP for sleep apnea evaluation. Patient Language: Croatian Stand Alone Forms: General Discharge Instructions Follow-up/Referrals: Mark Garrido MD [Physician] - Discharge Medications: New sennosides [senna] 8.6 mg tablet 8.6 mg PO BID PRN (Reason: constipation) Qty: 30 2RF oxycodone 5 mg tablet 5 mg PO Q4H PRN (Reason: pain) Qty: 32 0RF cyclobenzaprine 5 mg tablet 5 mg PO HS Qty: 30 0RF oxycodone-acetaminophen [Percocet] 10-325 mg tablet 1 tablet PO Q4H PRN (Reason: pain) Qty: 42 0RF Continued levothyroxine 88 mcg capsule 88 mcg PO DAILY lovastatin 20 mg tablet 20 mg PO DAILY cholecalciferol (vitamin D3) 25 mcg (1,000 unit) tablet 25 mcg PO DAILY Women's One Daily 18 mg iron-400 mcg-500 mg tablet 1 tablet PO DAILY melatonin 10 mg capsule 20 mg PO HS acetaminophen [Acetaminophen Extra Strength] 500 mg tablet 1,000 mg PO Q6H PRN (Reason: pain) Held Advil PM 200-38 mg tablet 1 cap PO HS Hold Instructions: Resume on 07/20/24. Date of admission: 07/07/24 18:00 Primary Care Provider: Zeus,Jp Chandra Admitting Provider: Mark Garrido Attending physician on admission: Mark Garrido Condition: Improved
== END 2024-07-09 11:18 | disposition home or self-care (01) ==
LOC: ANHSURGERY 18:02 → ANH3MEDSUR 18:02
PROVIDERS: Nurse Practitioner; Physician Assistant; Admitting Provider Neurological Surgery; PCP Family Medicine; Visit Provider Neurological Surgery
PROC: (CPT 22612; principal; 2024-07-06 07:30)
DX: M47.816 Spondylosis without myelopathy or radiculopathy, lumbar region (principal); M43.06 Spondylolysis, lumbar region; M48.061 Spinal stenosis, lumbar region without neurogenic claudication; G97.41 Accidental puncture or laceration of dura during a procedure; I95.9 Hypotension, unspecified; G81.94 Hemiplegia, unspecified affecting left nondominant side; R51.9 Headache, unspecified; E78.5 Hyperlipidemia, unspecified; E03.9 Hypothyroidism, unspecified; Z79.899 Other long term (current) drug therapy; Z88.5 Allergy status to narcotic agent; Z87.442 Personal history of urinary calculi; Z90.710 Acquired absence of both cervix and uterus; Z98.890 Other specified postprocedural states
CPT/HCPCS: 22630; 22853; 20936; 61783; 36415; 70450; 72125; 80048; 80053; 82948; 83735; 84443; 85014; 85018; 85025; 85027; 86850; 86900; 86901; 97116; 97161; 97165; 97530; 97535; 99199; A9270; C1713; G0378; J0690; J1100; J1171; J1200; J2003; J2250; J2371; J2405; J2704; J3010; J7030; J7120

== ENCOUNTER 2024-08-24 09:20 | Outpatient (CLI) | payer OTHER, MEDICARE, SELFPAY ==
--- NOTE | ~2024-08-24 | XR_ITS ---
3 VIEWS LUMBAR SPINE Ordering provider: Mark Garrido MD History: . M47.816 - Spondylosis without myelopathy or radiculopathy... . Comparison: None. FINDINGS: VERTEBRAL BODIES:Postoperative changes at the level of L4-L5. No visible fracture or subluxation. De generative changes of the spine. DISK SPACES: Disc spacer at the level of L4-L5. Narrowing of the disc L3-L4 and L5-S1. SOFT TISSUES: Atherosclerotic changes of the aorta. IMPRESSION: No acute osseous abnormality lumbar spine. Postoperative changes. Multilevel degenerative disc disease. Reviewed, dictated and finalized at location A.
--- OUTSIDE RECORDS SUMMARY | 2024-08-24 09:30 | XMS_ITS | Clinical Summary ---
Author Organization [facility] Address [address] [place] [id number] Care Team Providers Care Hose Handler Name Role Phone Jp Schulz MD Primary Care Provider Manuelito Mendenhall SENIOR BUSINESS DEVELOPMENT ANALYST Unavailable [phone] Soraya Lockwood SENIOR BUSINESS DEVELOPMENT ANALYST Unavailable [phone] Mark Garrido MD Unavailable [phone] Allergies Active Allergy Reactions Criticality Noted Date Comments Acetaminophen-Codeine Other (See comments) Low 08/15 Codeine Nausea only Low Reaction: Nausea, Ketorolac Nausea only Low 01/21/2023 Tramadol Nausea only Low 01/21/2023 Medications melatonin 5 mg tablet 1 tablet (5 mg total) Active cholecalciferol, vitamin D3, (VITAMIN D3 ORAL) Take 1,000 Units by mouth Active biotin 10,000 mcg capsule Take by mouth Active vcbbpeovtomp-Bp-wi on-minerals tablet Take by mouth Active senna-docusate (PERICOLACE) 8.6-50 mg Take 1-2 pills nightly or at least 3 times weekly to help with larger and more complete morning bowel movements. 60 tablet 5 01/22/20 23 Active psyllium (METAMUCIL) powder Take 1 packet by mouth 3 (three) times a day Active levothyroxine (SYNTHROID) 88 mcg tabletIndications: Acquired hypothyroidism TAKE 1 TABLET BY MOUTH EVERY DAY 100 tablet 08/19/19 25 Active lovastatin (MEVACOR) 20 mg tabletIndications: Multiple-type hyperlipidemia TAKE 1 TABLET BY MOUTH EVERY DAY AT NIGHT 100 tablet 08/19/19 25 Active levothyroxine (SYNTHROID) 88 mcg tabletIndications: Acquired hypothyroidism Take 1 tablet (88 mcg total) by mouth daily 90 tablet 3 10/03/19 24 025 Discontinued lovastatin (MEVACOR) 20 mg tabletIndications: Multiple-type hyperlipidemia Take 1 tablet (20 mg total) by mouth nightly 90 tablet 3 10/03/19 24 025 Discontinued Active Problems Problem Noted Date Diagnosed Date NSAID long-term use 10/04/2023 Assessment & Plan (10/04/2023 11:16 AM CDT): New diagnosis Patient has been noted to have supervisor long goods current use of NSAIDs. She has been using Advil-PM --> for sleep, discussed to switch to benadryl only due to risk of senior living use of NSAIDS Discussed that NSAIDs have [...] 10/03/2023 Assessment & Plan (04/04/2024 12:17 PM LINUX SERVER ADMINISTRATOR): Wt Readings from Last 3 Encounters: 04/04/24 [...] 01/21/2023 Assessment & Plan (04/04/2024 12:17 PM LINUX SERVER ADMINISTRATOR): - up to date Colonoscopy 03/2024 Impression: - One 4 mm polyp in the ascending colon, removed with a jumbo cold forceps. Resected and retrieved. - Diverticulosis in the colon. - Internal hemorrhoids. Recommendation: - Await pathology results. - Repeat colonoscopy in 5 years for surveillance. - Continue present medications. Use yslo-pxr-fbtxppv fiber supplements daily Assessment & Plan (10/03/2023 12:40 PM CDT): - she has colonoscopy scheduled for 03/23/2024, patient has known history of colon polyps Irritable bowel syndrome with constipation and d iarrhea 01/21/2023 Assessment & Plan (04/05/2024 4:57 AM LINUX SERVER ADMINISTRATOR): - chronic, recurring, better controlled - has started taking metamucil with improved with bowel movements - continue management History of hematuria 12/20/2022 Assessment & Plan (10/04/2023 11:17 AM CDT): - she was referred to Urology for hematuria by prior pleased to be and was referred to [facility] - had complete workup including imaging and cystoscopy with normal finding and was told she likely passed a kidney stones Assessment & Plan (12/20/2022 5:13 PM LINUX SERVER ADMINISTRATOR): CT scans without renal mass. Urological referral [...] neurosurgery Assessment & Plan (04/04/2024 12:28 PM LINUX SERVER ADMINISTRATOR): - chronic condition, stable status - managed [...] management Assessment & Plan (12/20/2022 5:13 PM LINUX SERVER ADMINISTRATOR): Pain management referral. Family members have had difficulty with opioid use and would prefer to avoid medication if able. Assessment & Plan (09/29/2022 10:03 AM CDT): PRN meds for now. Call for lumbar spine xrays, Right hip xrays and PT eval when ready. Allergic rhinitis 07/12/2017 Insomnia 07/12/2017 Assessment & Plan (04/04/2024 12:26 PM LINUX SERVER ADMINISTRATOR): - Chronic condition, controlled - Uses Melatonin PRN only - discussed risk of senior living NSAID use, no longer on Advil p.m. start using Benadryl in place of it Assessment & Plan (10/04/2023 11:17 AM CDT): - Chronic condition, controlled - Uses Melatonin PRN only and 2 Advil PM at night - discussed risk of supervisor long goods NSAID use --> asked her to discontinue [...] 06/30/2013 Assessment & Plan (04/04/2024 12:17 PM LINUX SERVER ADMINISTRATOR): - chronic condition - status: well controlled [...] 06/30/2013 Assessment & Plan (04/04/2024 12:19 PM LINUX SERVER ADMINISTRATOR): - chronic condition, persistent - not on [...] 206 Assessment & Plan (04/04/2024 12:19 PM LINUX SERVER ADMINISTRATOR): - chronic condition - status: is adequately [...] 04/04/2024 Assessment & Plan (12/20/2022 5:13 PM LINUX SERVER ADMINISTRATOR): Complete course of antibiotics. Colonoscopy ordered. High-fiber [...] (08/04/2018): Added automatically from request for surgery [id number] Mass of left side of neck 12/12/2017 [...] 2028. Mammogram due September 2019. Follow-up the director school of nursing for breast exam and pelvic exam as [...] 2018. Mammogram yearly. She should see her director school of nursing for breast exam and pelvic exam is a direct. We will see her back in 1 year for full physical and fasting lab sooner if needed. Encounters Date Type Department Care Team Description 08/02/2024 Results Follow-Up [facility] Primary Care at [address] [address] Jp Schulz MD Screening Mammogram Bilateral W Jose 08/01/2024 10:51 AM CDT - 08/01/2024 11:59 PM CDT Hospital Encounter [facility] [address] [place] [id number] Screening mammogram, encounter for Discharge Disposition: Discharge to home or self [...] 02/13/2019 REDUCTION MAMMAPLASTY 02/14/1993 - 02/13/1994 Bilateral OOPHORECTOMY 02/14/1994 - 02/13/1995 HYSTERECTOMY 02/14/1994 - 02/13/1995 BREAST CYST ASPIRATION 02/14/1989 - 02/13/1990 Left cyst? 1989? Medical History Medical History Date Comments Hx [...] on file Legal Sex Female 9:22 AM LINUX SERVER ADMINISTRATOR Gender Identity Not on file Sexual Orientation Not on file Obstetrics History Para Term AB IAB SAB Ectopic Multiple Livin g Live Births 2 2 2 Date Outcome GA Total Labor Labor/2nd/3rd Weight Sex Type Anes PTL Mariam A1 A5 Name Clin Term Term Last Filed Vital Signs Vital Sign Reading Time Taken Comments Blood Pressure 138/88 04/04/2024 11:53 AM LINUX SERVER ADMINISTRATOR Pulse 76 04/04/2024 11:53 AM LINUX SERVER ADMINISTRATOR Temperature 36.4 C (97.6 F) 04/04/2024 11:53 AM LINUX SERVER ADMINISTRATOR Respiratory Rate 16 04/04/2024 11:53 AM LINUX SERVER ADMINISTRATOR Oxygen Saturation 97% 04/04/2024 11:53 AM LINUX SERVER ADMINISTRATOR Inhaled Oxygen Concentration - - Weight 77.1 kg (170 lb) 08/01/2024 11:02 AM CDT Height 162.6 cm (5' 4) 08/01/2024 11:02 AM CDT Body Mass Index 29.18 08/01/2024 11:02 AM CDT Plan of Treatment Health Maintenance Due Date Last Done Comments Hepatitis B Screening 1973 Covid-19 Vaccine (2023-2 5 season) 2023 02/18/2022, 01/14/2021, 05/24/2020, Additional history exists Well Visit 65+ 10/02/2024 10/03/2023, 09/14, 09/24/2021, Additional history exists Influenza Vaccine (#1) 2024 , 02/18/2022, 02/09/2020, Additional history exists Osteoporosis Screening-Bone Density Scan 10/21/2024 10/21/2022, 10/21/2022, 09/02/2015 Depression Screening 04/04/2025 04/04/2024, 10/03/2023, 12/20/2022, Additional history exists Fall Risk Assessment 04/04/2025 04/04/2024, 10/03/2023, 12/20/2022, Additional history exists Breast Cancer Screening-Mammogram 08/01/2025 08/01/2024, 06/16/2023, 06/16/2023, Additional history exists DTaP/Tdap/Td Vaccine (3 - [...] Colon Cancer Screening-Sigmoidoscopy Discontinued 03/23/2024, 10/02/2018, 05/17/2008 Procedures Procedure Name Priority Date/Time Associated Diagnosis Comments SCREENING MAMMOGRAM BILATERAL W JOSE Schedule Routine, Read Routine (OP Routine) 08/01/2024 11:12 AM CDT Screening mammogram, encounter for CT LUMBAR SPINE WO CONTRAST Schedule Routine, Read Routine (OP Routine) 06/27/2024 COLONOSCOPY 03/23/2024 8:32 AM LINUX SERVER ADMINISTRATOR DEXA AXIAL SKELETON BONE DENSITY 1 OR MORE SITES Schedule Routine, Read Routine (OP Routine) 10/21/2022 8:11 AM CDT Osteopenia, unspecified location HEPATITIS C ANTIBODY Routine 06/22/2016 from Last 3 Months or Most Recently Relevant to Health Maintenance Results * Screening Mammogram Bilateral W Jose (08/01/2024 11:12 AM CDT) Anatomical Region Laterality Modality Breast Bilateral Mammography Impressions 08/01/2024 12:20 PM CDT Bilateral No evidence of malignancy in either breast. OVERALL BI-RADS FINAL ASSESSMENT: 2 - Benign RECOMMENDATION: Recommend bilateral annual screening mammography. Narrative 08/01/2024 12:20 PM CDT EXAMINATION: Screening Mammogram Bilateral W Jose: 08/01/2024 COMPARISON: Relevant prior studies available at the time of interpretation were reviewed. TECHNIQUE: Mammography was performed with 2D and digital breast tomosynthesis (DBT) images. CAD was utilized. BREAST PARENCHYMAL COMPOSITION: The breasts are almost entirely fatty. FINDINGS: Bilateral There is no suspicious mass, calcification, or architectural distortion in either breast. There is evidence of bilateral reduction mammoplasty. There is evidence of fat necrosis on the right. us Self Screening Mammogram IMG MAMMO PROCEDURES Fi nal Result * CT Lumbar Spine WO Contrast (06/27/2024) Anatomical Region Laterality Modality Spine N/A Computed Tomogra phy us Historical Provider IMG CT PROCEDURES Final R esult * Colonoscopy (03/23/2024 8:32 AM LINUX SERVER ADMINISTRATOR) Anatomical Region Laterality Modality Other Narrative Procedure Note Smitha Kendall MD - 03/23/2024 8:32 AM CST [facility] Patient Name: Airam Cantor Procedure Date: 03/23/2024 8:32 AM Date of : 1955 Admit Type: Outpatient Age: 69 Gender: Female Attending MD: Smitha Kendall M.D. Room: [facility] ENDOSCOPY ROOM 1 Note Status: [...] years for surveillance. - Continue present medications. Xdijoqw-bot-zpjhibn fiber supplements daily Medicines: Monitored Anesthesia Care [...] under direct vision. The Pediatric Colonoscope PCF-H190L [id number] was introducedthrough the anus and advanced to [...] 8:32 AM Procedure Code(s): --- Professional --- 20935, Colonoscopy, flexible; with biopsy, single or multiple Diagnosis Code(s): --- Professional --- Z86.010, Personal history of colonic polyps K64.8, Other hemorrhoids D12.2, Benign neoplasm of ascending colon K57.30, Diverticulosis of large intestine without perforation orabscess without bleeding CPT copyright 2020 [employer]. All rights reserved. The codes documented in this report are preliminary and upon build master reviewmay be revised to meet current compliance requirements. 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 MF: JAYNE Report ID: [id number] Reading Location: [place] [address] Be Sandhu MD IMG DXA PROCEDURES Final Res ult * Hepatitis C antibody (06/22/2016) SCRIBED HCV ab Negative [facility] Blood specimen (specimen) Narrative [facility] - 06/22/2016 Results already scanned into media. Historical Provider LAB MICROBIOLOGY - GENERA L ORDERABLES Final Result [facility] from Last 3 Months or Most Recently Relevant to Health Maintenance Insurance COMMERCIAL GENERIC MEDICARE [facility] Address: [address] [address] [place] [address] [facility] PPO Advance Directives For more information, please contact: [phone] * Full Code (Latest Code Status on File) Date Activated Date Inactivated Comments 03/23/2024 8:23 AM 03/23/2024 2:36 PM * Full Code Date Activated Date Inactivated Comments 03/23/2024 8:23 AM 03/23/2024 8:23 AM * Full Code Date Activated Date Inactivated Comments 10/02/2018 9:11 AM 10/02/2018 2:44 PM * Full Code Date Activated Date Inactivated Comments 10/02/2018 9:11 AM 10/02/2018 9:11 AM Care Teams Hose Handler Relationship Specialty Start Date End Date Jp Schulz MD PCP - General Family Medicine 10/03/23 Manuelito Mendenhall NP [address] [place] [address] Nurse Practitioner Gastroenterology 10/03/23 Soraya Lockwood NP [address] [place] [address] Nurse Practitioner Pain Management 10/27/23 [place] [address] [place] [id number] Consulting Physician Neurosurgery 04/04/24
--- OUTSIDE RECORDS SUMMARY | 2024-08-24 09:30 | XMS_ITS | Referral Summary ---
Author Organization [facility] Address [address] [place] [id number] Care Team Providers Care Vehicle Body Builder Name Role Phone Jp Schulz MD Primary Care Provider Manuelito Mendenhall SHIPPING & RECEIVING LEAD Unavailable [phone] Soraya Lockwood SHIPPING & RECEIVING LEAD Unavailable [phone] Mark Garrido MD Unavailable Encounters Date Type Department Care Team Description 08/02/2024 Results Follow-Up [facility] Primary Care at [address] [address] Jp Schulz MD Screening Mammogram Bilateral W Jose 08/01/2024 10:51 AM CDT - 08/01/2024 11:59 PM CDT Hospital Encounter [facility] [address] [place] [address] Screening mammogram, encounter for Discharge Disposition: Discharge [...] 10,000 mcg capsule Take by mouth Active affsbksxfqgx-Kt-ob on-minerals tablet Take by mouth Active senna-docusate [...] Patient has been noted to have supervisor intermediates current use of NSAIDs. She has been using Advil-PM --> for sleep, discussed to switch to benadryl only due to risk of supervisor intermediates use of NSAIDS Discussed that NSAIDs have [...] 10/03/2023 Assessment & Plan (04/04/2024 12:17 PM CLIENT RELATIONS ASSOCIATE): Wt Readings from Last 3 Encounters: 04/04/24 [...] 01/21/2023 Assessment & Plan (04/04/2024 12:17 PM CLIENT RELATIONS ASSOCIATE): - up to date Colonoscopy 03/2024 Impression: - One 4 mm polyp in the ascending colon, removed with a jumbo cold forceps. Resected and retrieved. - Diverticulosis in the colon. - Internal hemorrhoids. Recommendation: - Await pathology results. - Repeat colonoscopy in 5 years for surveillance. - Continue present medications. Use bsny-huz-yqeefpo fiber supplements daily Assessment & Plan (10/03/2023 12:40 PM CDT): - she has colonoscopy scheduled for 03/23/2024, patient has known history of colon polyps Irritable bowel syndrome with constipation and d iarrhea 01/21/2023 Assessment & Plan (04/05/2024 4:57 AM CLIENT RELATIONS ASSOCIATE): - chronic, recurring, better controlled - has started taking metamucil with improved with bowel movements - continue management History of hematuria 12/20/2022 Assessment & Plan (10/04/2023 11:17 AM CDT): - she was referred to Urology for hematuria by prior pleased to be and was referred to [facility] - had complete workup including imaging and cystoscopy with normal finding and was told she likely passed a kidney stones Assessment & Plan (12/20/2022 5:13 PM CLIENT RELATIONS ASSOCIATE): CT scans without renal mass. Urological referral [...] neurosurgery Assessment & Plan (04/04/2024 12:28 PM CLIENT RELATIONS ASSOCIATE): - chronic condition, stable status - managed [...] management Assessment & Plan (12/20/2022 5:13 PM CLIENT RELATIONS ASSOCIATE): Pain management referral. Family members have had difficulty with opioid use and would prefer to avoid medication if able. Assessment & Plan (09/29/2022 10:03 AM CDT): PRN meds for now. Call for lumbar spine xrays, Right hip xrays and PT eval when ready. Allergic rhinitis 07/12/2017 Insomnia 07/12/2017 Assessment & Plan (04/04/2024 12:26 PM CLIENT RELATIONS ASSOCIATE): - Chronic condition, controlled - Uses Melatonin PRN only - discussed risk of [facility] NSAID use, no longer on Advil p.m. start using Benadryl in place of it Assessment & Plan (10/04/2023 11:17 AM CDT): - Chronic condition, controlled - Uses Melatonin PRN only and 2 Advil PM at night - discussed risk of supervisor intermediates NSAID use --> asked her to discontinue Advil p.m. start using Benadryl in place of it Assessment & Plan (07/25/2019 10:38 AM CDT): Melatonin and Benadryl as needed. Assessment & Plan (07/13/2018 12:47 PM CDT): Continue melatonin as needed Degeneration of intervertebral disc of lumbar re braydenon 06/30/2013 History of asthma 06/30/2013 Assessment & Plan (10/03/2023 12:46 PM CDT): - history of it in past when she used to be very active - has not been an issue in the past Acquired hypothyroidism 06/30/2013 Assessment & Plan (04/04/2024 12:17 PM CLIENT RELATIONS ASSOCIATE): - chronic condition - status: well controlled [...] 06/30/2013 Assessment & Plan (04/04/2024 12:19 PM CLIENT RELATIONS ASSOCIATE): - chronic condition, persistent - not on [...] 206 Assessment & Plan (04/04/2024 12:19 PM CLIENT RELATIONS ASSOCIATE): - chronic condition - status: is adequately [...] 04/04/2024 Assessment & Plan (12/20/2022 5:13 PM CLIENT RELATIONS ASSOCIATE): Complete course of antibiotics. Colonoscopy ordered. High-fiber [...] (08/04/2018): Added automatically from request for surgery [id number] Mass of left side of neck 12/12/2017 [...] 2028. Mammogram due September 2019. Follow-up the coat tailor for breast exam and pelvic exam as [...] 2018. Mammogram yearly. She should see her coat tailor for breast exam and pelvic exam is [...] Unspecified 10/03/2023(Deferr ed: Patient Refused),11/14/2020(Deferred: Patient Refused),11/18/2017 [place] SARS-CoV-2 Monovalent Vaccination (12+ Yrs) PURPLE 01/14/2021,05/24/2020,05/02/2020 [...] on file Legal Sex Female 9:22 AM CLIENT RELATIONS ASSOCIATE Gender Identity Not on file Sexual Orientation Not on file Last Filed Vital Signs Vital Sign Reading Time Taken Comments Blood Pressure 138/88 04/04/2024 11:53 AM CLIENT RELATIONS ASSOCIATE Pulse 76 04/04/2024 11:53 AM CLIENT RELATIONS ASSOCIATE Temperature 36.4 C (97.6 F) 04/04/2024 11:53 AM CLIENT RELATIONS ASSOCIATE Respiratory Rate 16 04/04/2024 11:53 AM CLIENT RELATIONS ASSOCIATE Oxygen Saturation 97% 04/04/2024 11:53 AM CLIENT RELATIONS ASSOCIATE Inhaled Oxygen Concentration - - Weight 77.1 kg (170 lb) 08/01/2024 11:02 AM CDT Height 162.6 cm (5' 4) 08/01/2024 11:02 AM CDT Body Mass Index 29.18 08/01/2024 11:02 AM CDT Plan of Treatment Not on file Procedures Procedure Name Priority Date/Time Associated Diagnosis Comments SCREENING MAMMOGRAM BILATERAL W JOSE Schedule Routine, Read Routine (OP Routine) 08/01/2024 11:12 AM CDT Screening mammogram, encounter for CT LUMBAR SPINE WO CONTRAST Schedule Routine, Read Routine (OP Routine) 06/27/2024 COLONOSCOPY 03/23/2024 8:32 AM CLIENT RELATIONS ASSOCIATE DEXA AXIAL SKELETON BONE DENSITY 1 OR [...] R esult * Colonoscopy (03/23/2024 8:32 AM CLIENT RELATIONS ASSOCIATE) Anatomical Region Laterality Modality Other Narrative Procedure Note Smitha Kendall MD - 03/23/2024 8:32 AM CST [facility] Patient Name: Airam Cantor Procedure Date: 03/23/2024 8:32 AM Date of : 1955 Admit Type: Outpatient Age: 69 Gender: Female Attending MD: Smitha Kendall M.D. Room: [facility] ENDOSCOPY ROOM 1 Note Status: Finalized Patient [...] years for surveillance. - Continue present medications. Gwqqnbo-kew-qlpttie fiber supplements daily Medicines: Monitored Anesthesia Care [...] under direct vision. The Pediatric Colonoscope PCF-H190L [id number] was introducedthrough the anus and advanced to [...] 8:32 AM Procedure Code(s): --- Professional --- 08947, Colonoscopy, flexible; with biopsy, single or multiple Diagnosis Code(s): --- Professional --- Z86.010, Personal history of colonic polyps K64.8, Other hemorrhoids D12.2, Benign neoplasm of ascending colon K57.30, Diverticulosis of large intestine without perforation orabscess without bleeding CPT copyright 2020 [employer]. All rights reserved. The codes documented in this report are preliminary and upon card cutter helper reviewmay be revised to meet current compliance requirements. 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 MF: JAYNE Report ID: [id number] Reading Location: [id number] Be Sandhu MD IMG DXA PROCEDURES Final Res ult * Hepatitis C antibody (06/22/2016) SCRIBED HCV ab Negative [facility] Blood specimen (specimen) Narrative [facility] - 06/22/2016 Results already scanned into media. Historical Provider LAB MICROBIOLOGY - GENERA L ORDERABLES Final Result [facility] from Last 3 Months or Most Recently Relevant to Health Maintenance Insurance COMMERCIAL GENERIC MEDICARE [facility] Address: [address] [address] [place] [address] [employer] PPO [employer] PPO Advance Directives For more information, please contact: [phone] * Full Code (Latest Code Status on File) Date Activated Date Inactivated Comments 03/23/2024 8:23 AM 03/23/2024 2:36 PM * Full Code Date Activated Date Inactivated Comments 03/23/2024 8:23 AM 03/23/2024 8:23 AM * Full Code Date Activated Date Inactivated Comments 10/02/2018 9:11 AM 10/02/2018 2:44 PM * Full Code Date Activated Date Inactivated Comments 10/02/2018 9:11 AM 10/02/2018 9:11 AM Care Teams Vehicle Body Builder Relationship Specialty Start Date End Date Jp Schulz MD PCP - General Family Medicine 10/03/23 Manuelito Mendenhall NP [address] [place] [address] Nurse Practitioner Gastroenterology 10/03/23 Soraya Lockwood NP [address] [place] [address] Nurse Practitioner Pain Management 10/27/23 [place] [address] [place] [address] Consulting Physician Neurosurgery 04/04/24
--- OUTSIDE RECORDS SUMMARY | 2024-08-24 09:30 | XMS_ITS | Encounter Summary ---
Author Organization [facility] Address [address] [place] [address] Phone Care Team Providers Care Drupal Developer Name Role Phone Be Sandhu MD Primary Care Provider [phone] Jp Schulz MD Primary Care Provider Be Sandhu MD Primary Care Provider [phone] Jp Schulz MD Primary Care Provider Manuelito Mendenhall SLAB GRINDER Unavailable [phone] Soraya Lockwood SLAB GRINDER Unavailable [phone] Mark Garrido MD Unavailable Encounter Details Date Type Department Care Team (Late st Contact Info) Description 07/04/[address] 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 Gender Identity Not on file Sexual Orientation [...] documented as of this encounter Care Teams Drupal Developer Relationship Specialty Start Date End Date Be Sandhu MD PCP - General 05/14/16 05/01/23 Jp Schulz MD PCP - General Family Medicine 05/02/23 06/21/23 Be Sandhu MD [address] [address] PCP - General Internal Medicine 06/22/23 10/02/23 Jp Schulz MD PCP - General Family Medicine 10/03/23 Manuelito Mendenhall NP [address] [place] [address] Nurse Practitioner Gastroenterology 10/03/23 Soraya Lockwood NP [address] [place] [address] Nurse Practitioner Pain Management 10/27/23 [place] [address] [place] [address] Consulting Physician Neurosurgery 04/04/24 documented as of this encounter
--- OUTSIDE RECORDS SUMMARY | 2024-08-24 09:30 | XMS_ITS | Continuity of Care Document ---
Author Organization [facility] Address [address] [place] [address] Phone Care Team Providers Care Advertising Dispatch Clerks Supervisor Name Role Phone Zackary Godfrey MD Unavailable [...] Diagnoses Date Provider Providers Copied on Encounter [facility], [address] [place] [address] [address], [place], [place], [id number], [place] tel:[phone] SEC Frandy RAFFI Professional No Information 3 Epifanio Raymundo. [address] [facility] [address], [place], [place], [id number], [place]. 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 [address] [facility], [address]th [address], [place], [address], [place]. tel:[phone] Referring Provider: Luis Cruz OD R, [address] [facility] [address]th [address], [place], [address]. tel:[phone] Family History Family Member Type Diagnosis Age At Onset Problem Family history of Glaucoma Problem Family history of Diabetes m ellitus Problem (finding) Family history of Retin al disease Payers Payer name Insurance type Covered libertarian ID Authoriza tijoseph(s) Jennifer CI [id number] Social History Type Description Quantity Date Captured [...]
--- OUTSIDE RECORDS SUMMARY | 2024-08-24 09:30 | XMS_ITS | Clinical Summary ---
Author Organization [facility] Address [address] [place] [address] Phone Care Team Providers Care Morning Show Host Name Role Phone Jp Schulz MD Primary [...] Hepatitis C Virus (HCV) Screening 1955 Cologuard 2002 Immunochemical Fecal Occult Blood 2002 SARS-COV-2 Immunization ( season) 2023 01/14/2021, 05/24/2020, 05/02/2020 Mammogram 06/15/2024 06/16/2023, 04/14, 04/01/2021, Additional history exists Influenza Immunization (#1) 2024 01/0 06/2022, 02/09/2020, 01/22/2019, Additional history exists DEXA Bone Density 10/21/2024 10/21/2022 Colonoscopy 10/02/2028 10/02/2018 Colorectal Cancer Screening 10/02/2028 Respiratory Syncytial Virus (RSV) Immunization (Adult) (1 - 1-dose 75+ series) 01/07/2032 TdaP Immunization Completed 04/12/2008 Zoster Immunization Completed 04/26/2022, Pneumococcal Immunization (50+ years) Completed 09/29/2022 Hepatitis B Immunization Aged Out No longer eligible based on patient's age to complete this topic Human Papillomavirus (HPV) Immunization Aged Out No longer eligible based on patient's age to complete this topic Meningococcal Immunization (ACWY) Aged Out No longer eligible based on patient's age to complete this topic Rotavirus Immunization Aged Out No lo nger eligible based on patient's age to complete this topic Insurance [place], [place] [id number] MEDICARE [facility] Care Teams Morning Show Host Relationship Specialty Start Date End Date Jp Schulz MD [address] [facility], [address] [address] PCP - General Family Medicine 09/06/23
== END 2024-08-24 09:21 | disposition home or self-care (01) ==
PROVIDERS: PCP Family Medicine; Visit Provider Neurological Surgery
DX: M47.816 Spondylosis without myelopathy or radiculopathy, lumbar region (principal); M51.369 Other intervertebral disc degeneration, lumbar region without mention of lumbar back pain or lower extremity pain
CPT/HCPCS: 72100